=== PATIENT | male | born 1965 | race Caucasian/White ===

== ENCOUNTER 2019-11-06 15:45 | Outpatient (CLI) | payer OTHER, SELFPAY ==
[2019-11-06 16:19] LABS: Creatinine Urine 44.3 mg/dL; Total Protein Urine Random 170 mg/dL
[2019-11-06 16:23] LABS: Albumin Level 4.1 g/dL (3.5-5.1); Blood Urea Nitrogen 78 mg/dL (9-20); Calcium 7.6 mg/dL (8.4-10.2); Carbon Dioxide 13 mmol/L (22-30); Chloride 110 mmol/L (98-107); Estimated Glomerular Filt Rate 7; Glucose 89 mg/dL (75-110); Potassium 4.3 mmol/L (3.4-5.0); Sodium 137 mmol/L (137-145)
== END 2019-11-06 15:46 | disposition home or self-care (01) ==
PROVIDERS: PCP Internal Medicine; Visit Provider Internal Medicine Nephrology
DX: N18.4 Chronic kidney disease, stage 4 (severe) (principal)
CPT/HCPCS: 36415; 80069; 82570; 84156

== ENCOUNTER 2019-11-10 08:03 | Outpatient (CLI) | payer OTHER, SELFPAY ==
[2019-11-10 08:29] LABS: Blood Urea Nitrogen 73 mg/dL (9-20); Calcium 7.5 mg/dL (8.4-10.2); Carbon Dioxide 14 mmol/L (22-30); Chloride 112 mmol/L (98-107); Cholesterol 123 mg/dL (0-200); Estimated Glomerular Filt Rate 8; Glucose 101 mg/dL (75-110); HDL Direct 44 mg/dL; Potassium 4.3 mmol/L (3.4-5.0); Sodium 138 mmol/L (137-145); Triglycerides 78 mg/dL (<150)
[2019-11-10 08:40] LABS: LDL Cholesterol Direct 58 mg/dL
[2019-11-10 08:58] LABS: Prostate Specific Antigen 0.7 ng/mL (< OR = 4.0)
[2019-11-10 10:59] LABS: Vitamin D 25 Hydroxy 40.2 ng/mL
== END 2019-11-10 08:04 | disposition home or self-care (01) ==
PROVIDERS: PCP Internal Medicine; Visit Provider Internal Medicine
DX: E55.9 Vitamin D deficiency, unspecified (principal); Z12.5 Encounter for screening for malignant neoplasm of prostate; Z13.220 Encounter for screening for lipoid disorders; I10 Essential (primary) hypertension
CPT/HCPCS: 36415; 80048; 80061; 82306; 84153; G0103

== ENCOUNTER 2020-03-04 10:02 | Outpatient (CLI) | payer OTHER, SELFPAY ==
[2020-03-04 10:35] LABS: Creatinine Urine 65.5 mg/dL; Total Protein Urine Random 160 mg/dL
[2020-03-04 10:50] LABS: Anion Gap 20 mmol/L (8-16); Calcium 6.3 mg/dL (8.4-10.2); Carbon Dioxide 13 mmol/L (22-30); Chloride 107 mmol/L (98-107); Estimated Glomerular Filt Rate 4; Glucose 111 mg/dL (75-110); Potassium 4.5 mmol/L (3.4-5.0); Sodium 140 mmol/L (137-145)
[2020-03-04 11:25] LABS: Vitamin D 25 Hydroxy 41.9 ng/mL
[2020-03-04 11:53] LABS: Blood Urea Nitrogen 143 mg/dL (9-20)
== END 2020-03-04 10:03 | disposition home or self-care (01) ==
PROVIDERS: PCP Internal Medicine; Visit Provider Internal Medicine Nephrology
DX: I12.0 Hypertensive chronic kidney disease with stage 5 chronic kidney disease or end stage renal disease (principal); N18.5 Chronic kidney disease, stage 5
CPT/HCPCS: 36415; 80069; 82306; 82570; 84156

== ENCOUNTER 2020-03-11 21:46 | Inpatient (IN) | payer OTHER, SELFPAY ==
--- NOTE | ~2020-03-11 | XR_ITS ---
XR chest port-a-cath/central DATE: 03/12/2020 12:41 INDICATION: Tunneled dialysis catheter TECHNIQUE: Portable supine AP chest on 03/12/2020 at 1235 hours COMPARISON: 09/26/2017 two-view chest FINDINGS: Dual lumen right internal jugular dialysis catheter tip is situated near the superior cavoa trial junction. No pneumothorax. Heart size appears within normal limits. No hilar or mediastinal enlargement. There is aortic arch ca lcification. No pulmonary infiltrate or consolidation or left pleural effusion. There is minimal blunting of left costophrenic angle which appears chronic, also noted on 09/26/2017 examination. IMPRESSION: Right internal jugular central venous catheter tip at superior cavoatrial junction; no pn eumothorax No active cardiopulmonary disease Reviewed, dictated and finalized at [facility]. Reviewed, dictated and finalized at location A. IMPRESSION: Right internal jugular central venous catheter tip at superior cavo atrial junction; no pneumothorax No active cardiopulmonary disease
--- NOTE | ~2020-03-11 | XR_ITS ---
EXAMINATION: XR fl guide central line place DATE: 03/12/2020 12:42 INDICATION: Tunneled dialysis catheter placement TECHNIQUE: 2 fluoroscopic spot images of the chest were obtained during procedure performed by Dr. Felix. Radiologist was not present for the imaging or procedure. The amount of fluoroscopy time used dur ing this procedure was 0.8 minutes. COMPARISON: 09/26/2017 FINDINGS/IMPRESSION: Placement of a tunneled large-bore dual-lumen right internal jugular central venous catheter with dis rodolfo tip at the level of the superior cavoatrial junction. See procedure note for further detail. Reviewed, dictated and finalized at location A.
--- NOTE | ~2020-03-11 | XR_ITS ---
XR abdomen/kub 1V DATE: 03/12/2020 00:31 INDICATION: Flank pain TECHNIQUE: Portable supine AP view COMPARISON: 01/04/[address] abdomen pelvis FINDINGS: Calcifications overlie both renal silhouettes consistent with bilateral nephrolithiasis, wh ich was also reported on 01/04/[address] abdomen pelvis examination. No apparent ureteral ana cified calculus is noted. Iliac arterial calcifications are noted. The psoas shadows are intact. No visceromegaly is evident. The bowel gas pattern is unremarkable, wit h no evidence of obstruction. Degenerative changes of the lumbar spine. IMPRESSION: Bilateral nephrolithiasis Reviewed, dictated and finalized at [facility]. Reviewed, dictated and finalized at location A. IMPRESSION: Bilateral nephrolithiasis
--- NOTE | ~2020-03-11 | US_ITS ---
EXAMINATION: US renal BI EXAM DATE: 03/12/2020 10:52 INDICATION: Bilateral nephrolithiasis. TECHNIQUE: Multiple grayscale and Doppler images of the kidneys were obtained (by a technologist who performed the scan) and subsequently reviewed. Correlation is made to renal artery exam 2016. FINDINGS: Mild bilateral renal cortical thinning, atrophy. Right kidney: There is normal contour and echogenicity. It measures 11.4 x 6.2 x 5.4 centimeters. Monk spect scattered calcifications, nephrolithiasis. There is no hydronephrosis. Left kidney: There is normal contour and echogenicity. It measures 11.6 x 6.2 x 5.3 centimeters. Flori pect scattered calcifications, nephrolithiasis. There is no hydronephrosis. Bladder unremarkable. IMPRESSION: 1. Mild bilateral renal cortical thinning. 2. Bilateral nephrolithiasis. Reviewed, dictated and finalized at location B.
[2020-03-11 21:54] VITALS: PULSE 91
[2020-03-11 22:00] VITALS: BP 176/100; PULSE 94; RESP 22; TEMP 36.3; O2SAT 100; BMI 21.9
--- NOTE | 2020-03-11 22:00 | ECG_ITS ---
Measurements Intervals [place] Rate: 86 P: 59 ID: [id number] QRS: 29 QRSD: 102 T: 61 QT: 378 QTc: 454 Interpretive Statements SINUS RHYTHM BORDERLINE ST ABNORMALITY- ANTEROLATERAL LEADS BASELINE ARTIFACT- II, III, AVR, AVL, AVF, V6 BORDERLINE ECG Electronically Signed On 03-12-2020 14:56:54 CDT by Tong Urban D.O.
[2020-03-11 22:15] VITALS: BMI 21.9
--- NOTE | 2020-03-11 22:49 | ADMGEN ---
This patient, Audi Rosenthal, was admitted to IMU Room 200-01 @ 2200 by EMT transfer from [facility]. Patient/family oriented to hospital policies and general routines including ID bracelet, bed and alarms, visiting hours, pain management, procedures, bathroom and other care routines, personal items, smoking policy, room service/diet, and visiting hours. Valuables list has been completed. Information on how to activate the Rapid Response Team has been discussed. Patient/Family are encouraged to report perceived risks to care and to ask questions if they do not understand what they are told or what they should do.
--- NOTE | 2020-03-11 23:08 | PC.NURSE ---
Audi Rosenthal was admitted to IMU room 200 @2200 transported by EMT from [facility]. Vitals taken by EMT are
--- NOTE | 2020-03-11 23:10 | PC.NURSE ---
Audi Rosenthal was admitted to IMU room 200 @2200, transported by EMT from [facility]. EMT transport vitals are as followed: heart rate of 86, blood pressure 180/100, respiratory rate of 16, and O2 sats @ 100% on room air.
[2020-03-11] MEDS: MORPHINE SULFATE (*CRX) 2 MG/ML INJ IV PUSH (23:17)
[2020-03-11 23:48] VITALS: BP 167/89; PULSE 97; RESP 18; TEMP 36.6; O2SAT 100
[2020-03-11 23:56] LABS: Troponin I 0.066 ng/mL (0.000-0.034)
[2020-03-12] VITALS (22 sets, daily range): BP systolic 122–157; BP diastolic 76–91; PULSE 71–95; RESP 12–20; TEMP 36.1–37.9; O2SAT 97–100; BMI 21.9
[2020-03-12] MEDS: carvediloL 12.5 MG TABLET PO ×3 (00:29→20:29)
[2020-03-12] MEDS: hydrALAZINE HCL 50 MG TABLET PO ×4 (00:29→17:50)
[2020-03-12 02:28] LABS: Troponin I 0.086 ng/mL (0.000-0.034)
[2020-03-12 04:33] LABS: Add Urine Microscopic? YES; Amorphous Sediment Urine Few; Appearance Urine Cloudy (Clear); Bacteria Urine Trace /hpf; Bilirubin Urine Negative (Negative); Blood Urine 1+ (Negative); Color Urine Straw (Yellow); Glucose Urine UA 1+ mg/dL (Negative); Ketones Urine Negative (Negative); Leukocyte Esterase Ur 3+ LEU/UL (Negative); Nitrate Urine Negative (Negative); Protein Urine 2+ mg/dL (Negative); Specific Grav Ur 1.008 (1.001-1.035); Urobilinogen Urine Negative mg/dL (<2.0); WBC Urine >75 /hpf
--- NOTE | 2020-03-12 04:41 | PM.IMHP ---
H&P: HPI History of Present Illness Date/Time: 03/12/20 05:20 Chief complaint: Chest pain, shortness of breath Narrative: Audi Rosenthal is a 55 year old male with a past medical history of chronic kidney disease due to chronically uncontrolled hypertension who presented to the ER at [facility] due to shortness of breath and chest pain. The patient reports that he has been progressively more short of breath over the last 4 weeks or so. And then over the last 2 weeks of the patient has begun having chest pain. He reports that chest pain feels as if he has acid washing up his throat and feel similar to his usual GERD symptoms. He reports that his chest pain is frequently accompanied by vomiting. He denies any hematemesis or coffee-ground emesis. Dr. Moses on 03/04/2020 at which time his creatinine had jumped from 7 up to 13. He had an appointment at the filling hauler office on the to discuss starting hemodialysis. The patient reports that over the last month or so he has had no energy whatsoever. He denies any confusion,. Dried is or changes in urinary urgency or frequency. He has not been having any dysuria or hematuria. Nursing staff reported the patient was complaining of flank pain. But instead the patient states that his chest pain sometimes will also be at the bases his posterior back. He denies any CVA tenderness to palpation. He has been having some dizziness with position changes. He also reports generalized myalgias. Review of Systems Review of Systems: Narrative: 12 systems were reviewed with pertinent positives and negatives per HPI. Except as documented in the HPI, all other systems were reviewed and are negative. [facility] Past Medical History Medical History (Updated 03/12/20 @ 04:48 by Gracy Barillas DO) Anemia in chronic kidney disease BPH (benign prostatic hyperplasia) Essential hypertension Gastroesophageal reflux disease Hyperparathyroidism due to renal insufficiency Nephrolithiasis Osteoarthritis of right knee Shift work sleep disorder Vitamin D deficiency Surgical History Surgical History (Updated 03/12/20 @ 07:43 by Gracy Barillas DO) History of melanoma excision S/P cystoscopy with ureteral stent placement Family History Family History Sibling Diabetes mellitus Mother Family history of arthritis Father Family history unknown Social History Social History (Updated 03/12/20 @ 07:56 by Gracy Barillas DO) Social History: He lives in [place] with his of over 25 years. They do not have any children. He is employed at a [email or web address]. Primary care physician: Dr. Roney George Code status: Full code Surrogate decision maker: Ne () Smoking status: Never smoker Alcohol intake: current Alcohol use details: He drinks only in small amounts in moderation. He has not had any alcohol in quite some time. Substance use: never Substance use type: does not use Gender identity (if verbalized by the patient): Male Spiritual care concerns: No Meds Home Medications and Allergies Home Medications Medication Instructions Recorded Confirmed Type nifedipine 60 mg tablet,extended 60 mg PO DAILY #90 tablet 07/12/19 03/11/20 Rx release cholecalciferol (vitamin D3) 50 2,000 unit PO BID #180 tablet 07/20/19 03/11/20 Rx mcg (2,000 unit) tablet carvedilol 12.5 mg tablet 12.5 mg PO Q12H #60 tablet 11/15/19 03/11/20 Rx ferrous sulfate 325 mg (65 mg 325 mg PO BID #60 tablet 11/15/19 03/11/20 Rx iron) tablet hydralazine 50 mg tablet 50 mg PO TID #90 tablet 11/15/19 03/11/20 Rx sodium bicarbonate 650 mg tablet 650 mg PO DAILY #90 tablet 11/15/19 03/11/20 Rx Allergies Allergy/AdvReac Type Severity Reaction Status Date / Time No Known Drug Allergies Allergy Unknown none Unverified 11/15/19 12:48 Bumble Bee Allergy Unknown hives Uncoded 11/15/19 12:48 Vital Signs Vital Si
[2020-03-12 05:18] LABS: Basophils Absolute Auto 0.1 K/mm3 (0.0-0.1); Basophils Percent Auto 0.9 % (0.2-1.2); Eosinophils Absolute Auto 0.2 K/mm3 (0-0.3); Eosinophils Percent Auto 2.2 % (0-4.4); Hematocrit 21.4 % (42.0-52.0); Hemoglobin 7.2 g/dL (14.0-18.0); Immature Granulocyte Absolute 0.03 K/mm3 (0.00-0.031); Immature Granulocyte Percent A 0.4 % (0-0.5); Lymphocytes Absolute Auto 1.23 K/mm3 (0.9-3.2); Lymphocytes Percent Auto 17.8 % (18.3-44.2); Mean Corpuscular HGB Conc 33.6 g/dl (32-36); Mean Corpuscular Hemoglobin 28.3 pg (26-34); Mean Corpuscular Volume 84.3 fl (80-100); Mean Platelet Volume 10.2 fl (7.4-10.4); Monocytes Absolute Auto 0.6 K/mm3 (0.1-0.6); Monocytes Percent Auto 8.3 % (2.6-8.5); Neutrophils Absolute Auto 4.9 K/mm3 (1.3-6.7); Neutrophils Percent Auto 70.4 % (45.5-73.1); Platelet Count Result 216 k/mm3 (150-375); Red Blood Count 2.54 M/mm3 (4.6-6.20); Red Cell Distribution Width 14.6 % (11.5-14.5); White Blood Count 6.9 K/mm3 (4.5-10.0)
[2020-03-12 05:40] LABS: Anion Gap 21 mmol/L (8-16); Calcium 6.2 mg/dL (8.4-10.2); Carbon Dioxide 12 mmol/L (22-30); Chloride 107 mmol/L (98-107); Estimated CRCL calculation 6 ml/min; Estimated Glomerular Filt Rate 4; Glucose 94 mg/dL (75-110); Phosphorus 11.3 mg/dL (2.5-4.5); Potassium 3.9 mmol/L (3.4-5.0); Sodium 140 mmol/L (137-145)
[2020-03-12 05:52] LABS: Blood Urea Nitrogen 138 mg/dL (9-20)
--- NOTE | 2020-03-12 08:10 | PM.CNNEP ---
Assessment and Plan Assessment and plan (1) Chronic kidney disease, stage 5: Code(s): N18.5 - Chronic kidney disease, stage 5 Status: Acute Assessment and Plan: the patient has chronic kidney disease. This is likely due to hypertension and recurrent stone disease. Vascular disease may be an issue as well. His baseline creatinine seems to be around 4-7. It is unclear exactly what part of this is acute and what part of this is chronic. (2) Acute kidney failure, unspecified: Code(s): N17.9 - Acute kidney failure, unspecified Status: Acute Assessment and Plan: The patient has a much worse creatinine now. It is risen dramatically in the last 4 months. Possibly this is just progression of kidney disease and he is uremic so just needs dialysis. Possibly this is an acute process. He does have pyuria so could have a UTI. He has been placed on antibiotics and he got urine cultures done which are pending. He does not look toxic however. At makes this a little bit less likely as a cause of his acute kidney injury. The patient does have a history of stone disease. possibly he passed 1 and caused an obstruction. He might be dehydrated because He has been having nausea vomiting and of course his usual diarrhea. will check urine electrolytes and eosinophils, chest x-ray, renal ultrasound, and an echocardiogram. (3) Bacteriuria with pyuria: Code(s): R82.71 - Bacteriuria; R82.81 - Pyuria Status: Acute Assessment and Plan: Patient is on antibiotics and cultures are pending. (4) BPH w/o urinary obs/LUTS: Code(s): N40.0 - Benign prostatic hyperplasia without lower urinary tract symptoms Status: Acute Assessment and Plan: We will see what his bladder looks like on ultrasound (5) Hypertension with heart disease: Code(s): I11.9 - Hypertensive heart disease without heart failure Status: Acute Assessment and Plan: his blood pressure is generous. We will leave it this way because of the acute kidney injury (6) Vitamin D deficiency: Code(s): E55.9 - Vitamin D deficiency, unspecified Status: Acute Assessment and Plan: we can check a vitamin-D (7) Chest pain: Code(s): R07.9 - Chest pain, unspecified Status: Acute Assessment and Plan: this could be indigestion from his uremia or possibly pericarditis. Will check an echocardiogram. Check a stool guaiac since he is so anemic (8) Erythropoietin deficiency anemia: Code(s): D63.1 - Anemia in chronic kidney disease Status: Acute Assessment and Plan: will start some EPO . History of Present Illness Reason for Consult Consult date: 03/12/20 Chief Complaint Chief complaint: Chest pain, shortness of breath History of Present Illness Narrative: Audi is a very pleasant 55-year-old gentleman who has chronic kidney disease under the care of Dr. Moses, anemia, hypertension, GERD, nephrolithiasis, vitamin-D deficiency. He sees Dr. Moses in the office routinely. Apparently he was sent for [facility] because his renal function has been deteriorating but because of COVID this was done virtually. I am not exactly sure how much of a class He got but he does not know much about what type of dialysis he would want to do and has not made any strides toward permanent access. He says that his GFR was 12 last T . However in November his creatinine was as high as 7 which would give a GFR of only 8. The patient was okay until about 2 weeks ago when he started having chest pain. This is anterior chest pain or quite described as dull. It radiates to the back. It does not hurt with inspiration or exertion. He says he gets a little worse lying back flat in bed but not much. It is intermittent. He did not call anybody about it over the last couple of weeks but because he got tired of it he decided to come in the emergency room yesterday.
--- NOTE | 2020-03-12 08:26 | ECHO_ITS ---
Patient Info Name: Audi Rosenthal Age: 55 years : 1965 Gender: Male Ht: 72 in Wt: 161 lbs BSA: 1.92 m2 HR: 75 bpm BP: 133 / 79 mmHg Heart Rhythm: Sinus Rhythm Technical Quality: Good Exam Date: 03/12/2020 1:24 PM Exam Location: [facility] Pulmonary Patient Status: Inpatient Admit Date: 03/12/2020 Staff Ordering Physician: Aureliano Alegria MD Switch Inspector: Mark López RDCS Attending Provider: Gracy Barillas DO Referring Physician: Airam ISRAEL; Exam Type: CA echo doppler color flow Study Info Indications R07.9 - Chest pain, unspecified Complete two-dimensional, color flow and Doppler transthoracic echocardiogram is performed. History/Risk Factors Chest pain; ESRD, HTN, SOB,. Summary 1. Complete two-dimensional, color flow and Doppler transthoracic echocardiogram is performed. 2. Left ventricular chamber dimension is mildly enlarged. 3. Mid to distal anteroseptal wall is hypokinetic. [place] is hypokinetic. 4. Left ventricular systolic function is mildly reduced, estimated at 45-50%. 5. There is mildly increased left ventricular wall thickness. 6. The left ventricular diastolic function is grade I diastolic dysfunction. 7. E/e' 11 is mildly elevated. 8. Left atrial chamber dimension is mildly enlarged. 9. Right atrial chamber dimension is mildly enlarged. 10. There is trace tricuspid valve regurgitation. 11. No pulmonary hypertension, estimated pulmonary arterial systolic pressure is 28 mmHg. Left Ventricle E/e' 11 is mildly elevated. Mid to distal anteroseptal wall is hypokinetic. [place] is hypokinetic. Left ventricular chamber dimension is mildly enlarged. Left ventricular systolic function is mildly reduced, estimated at 45-50%. There is mildly increased left ventricular wall thickness. The left ventricular diastolic function is grade I diastolic dysfunction. Right Ventricle Right ventricular chamber dimension is normal. Right ventricular systolic function is normal. Left Atria Left atrial chamber dimension is mildly enlarged. Right Atria Right atrial chamber dimension is mildly enlarged. Aortic Valve The aortic valve is trileaflet. There is no aortic valve stenosis. There is no aortic valve regurgitation. Pulmonic Valve There is no pulmonic regurgitation. Mitral Valve There is no mitral valve stenosis. There is no mitral valve regurgitation. Tricuspid Valve There is trace tricuspid valve regurgitation. No pulmonary hypertension, estimated pulmonary arterial systolic pressure is 28 mmHg. Pericardium/Pleural There is no pericardial effusion. Inferior Vena Cava Normal inferior vena cava with >50% collapse upon inspiration consistent with normal right atrial pressure, 5 mmHg. Aorta The aortic root size at the sinus of Valsalva is normal. Left Ventricular Outflow Tract Name Value Normal LVOT 2D LVOT Diameter 2.0 cm LVOT Doppler LVOT Peak Gradient 6 mmHg LVOT Mean Gradient 4 mmHg LVOT VTI 26 cm LVOT VTI/AV VTI Ratio 0.7
[2020-03-12 08:59] LABS: Creatine Kinase 177 U/L (55-170)
[2020-03-12] MEDS: SODIUM BICARBONATE TAB 650 MG TABLET PO (09:03)
[2020-03-12] MEDS: NIFEdipine 30 MG TAB.ER.24 60 MG PO (09:03)
[2020-03-12] MEDS: CHOLECALCIFEROL 1,000 UNITS TABLET 2000 UNITS PO ×2 (09:03→17:49)
[2020-03-12 09:12] LABS: Transferrin 175 mg/dL (206-381)
[2020-03-12 10:08] LABS: Iron 80 ug/dL (49-181)
[2020-03-12 10:12] LABS: Folic Acid 7.5 ng/mL (2.76->20)
[2020-03-12 10:17] LABS: Percent Iron Saturation 30 % (20-50)
--- NOTE | 2020-03-12 10:18 | WPDANESEPPF ---
Anes - Initial Pre Proc Eval Procedure: Operation Date: 03/12/20 11:30 Proposed Procedures p Insertion Tunnel Dialysis Catheter - Eulogio Olivo MD Date/Time: 03/12/20 10:18 Surgeon: Gracy Barillas DO Pre Op Diagnosis: Chest pain, shortness of breath Patient Data Age: 55 Gender: M Height: 1.83 m Weight: 73.4 kg Last Vital Signs Temp 37.2 C 03/12/20 07:59 Pulse 77 03/12/20 09:03 Resp 20 03/12/20 07:59 BP 157/87 H 03/12/20 07:59 Pulse Ox 100 03/12/20 07:59 Allergies Allergy/AdvReac Type Severity Reaction Status Date / Time No Known Drug Allergies Allergy Unknown none Verified 03/12/20 09:02 Bumble Bee Allergy Unknown hives Uncoded 11/15/19 12:48 Home Medications Medication Instructions Recorded Confirmed Type nifedipine 60 mg tablet,extended 60 mg PO DAILY #90 tablet 07/12/19 03/11/20 Rx release cholecalciferol (vitamin D3) 50 2,000 unit PO BID #180 tablet 07/20/19 03/11/20 Rx mcg (2,000 unit) tablet carvedilol 12.5 mg tablet 12.5 mg PO Q12H #60 tablet 11/15/19 03/11/20 Rx ferrous sulfate 325 mg (65 mg 325 mg PO BID #60 tablet 11/15/19 03/11/20 Rx iron) tablet hydralazine 50 mg tablet 50 mg PO TID #90 tablet 11/15/19 03/11/20 Rx sodium bicarbonate 650 mg tablet 650 mg PO DAILY #90 tablet 11/15/19 03/11/20 Rx Laboratory Tests 03/11/20 03/12/20 03/12/20 23:21 01:54 04:14 WBC RBC Hgb Hct MCV MCH MCHC RDW Plt Count MPV Immature Gran % (Auto) Neut % (Auto) Lymph % (Auto) Henry % (Auto) Eos % (Auto) Baso % (Auto) Lymph # (Auto) Henry # (Auto) Eos # (Auto) Baso # (Auto) Abs Immat Gran (auto) Absolute Neuts (auto) Absolute Nucleated RBC Nucleated RBC % Sodium Potassium Chloride Carbon Dioxide Anion Gap BUN Creatinine Estim Creat Clear Calc Estimated GFR Glucose Calcium Phosphorus Iron TIBC % Saturation Transferrin Ferritin Total Creatine Kinase Troponin I 0.066 ng/mL H* ng/mL 0.086 ng/mL H* D ng/mL (0.000-0.034) (0.000-0.034) Total Protein Albumin Fczvd-4-Ccooaibbf Nrpdk-2-Hznpgbdxu Huaf-4-Mcltibrx Avtv-0-Qssnlryq Gamma Globulins Abnorm Protein Band 1 Abnorm Protein Band 3 PEP Interpretation Vitamin B12 Folate Urine Color Straw (Yellow) Urine Appearance Cloudy H (Clear) Urine pH 6.0 (5.0-9.0) Ur Specific [place] 1.008 (1.001-1.035) Urine Protein 2+ mg/dL H mg/dL (Negative) Urine Glucose (UA) 1+ mg/dL H mg/dL (Negative) Urine Ketones Negative mg/dL mg/dL (Negative) Ur Blood (Man) 1+ H (Negative) Urine Nitrate Negative (Negative) Urine Bilirubin Negative (Negative) Urine Urobilinogen Negative mg/dL mg/dL (<2.0) Leukocyte Esterase Rfl 3+ LUBNA/UL H LUBNA/UL (Negative) Urine RBC 6-10 /hpf H /hpf (0-2) Urine WBC >75 /hpf H /hpf Amorphous Sediment Few H (None) Urine Bacteria Trace /hpf /hpf 03/12/20 03/12/20 03/12/20 04:20 04:22 04:22 WBC 6.9 K/mm3 K/mm3 (4.5-10.0) RBC 2.54 M/mm3 L M/mm3 (4.6-6.20) Hgb 7.2 g/dL L g/dL (14.0-18.0) Hct 21.4 % L % (42.0-52.0) MCV 84.3 fl fl (80-100) MCH 28.3 pg pg (26-34) MCHC 33.6 g/dl g/dl (32-36)
[2020-03-12] MEDS: SODIUM CHLORIDE 0.9% IV 500 ML 30 ML IV CONT (10:31)
--- NOTE | 2020-03-12 11:09 | P.HPUP_ITS ---
History and Physical Update Update Date/Time: 03/12/20 11:09 Plan to proceed with placement of a tunneled central venous catheter for dialysis under anesthesia. Fluoroscopy will be used to assist in the placement. History and Physical has been reviewed, including an updated exam of the p atient. There are NO changes in the patient's condition. Risks, benefits, and alternatives have been discussed and questions answered. Patient agrees to proceed with procedure.
[2020-03-12] MEDS: ceFAZolin 2 GM/D5W 50 ML 2 GM/50 ML BAG IVPB (11:26)
--- NOTE | 2020-03-12 11:30 | P.OP_ITS ---
Procedure Note - Detailed Date of procedure: 03/12/20 Pre-op diagnosis: End-stage renal disease, inadequate venous access End stage renal disease, inadequate venous access for dialysis Post-op diagnosis: same Procedure performed: Placement right internal jugular tunneled Dura Flow central venous catheter under fluoroscopy Description of procedure: The patient was taken to surgery and IV sedation was administered. He was in a supine position and the right neck was prepped and draped as was the right upper chest. The right internal jugular vein was cannulated and a guidewire was passed into the superior vena cava. The position of the guidewire was checked with fluoroscopy. I then used fluoroscopy to outline the general course of the tunneled dialysis catheter. Counter incisions on the right chest and right neck were marked on the skin. Local anesthetic was infiltrated into each of the counter incisions. I then made incisions at each as well as at the exit site of the guidewire. The Dura Flow catheter was then tunneled retrograde up to the exit site of the guidewire. Serial dilators were then passed over the guidewire into the superior vena cava. The introducer and sheath were then passed over the guidewire into the superior vena cava. I checked the position of the sheath with fluoroscopy. It appeared satisfactory. I then removed the introducer and guidewire. The catheter was then passed through the sheath and down into the superior vena cava. The sheath was removed. I manipulated the curve of the catheter so that there was no kinks as it turned to go into the internal jugular vein. The catheter was then checked. It aspirated blood easily and flushed nicely with heparin. I looked at it under fluoroscopy and there were no kinks in the catheter. The tip appeared to be in the distal SVC right atrial junction as planned. The counter incisions were closed with subcuticular interrupted 4 O Vicryl suture. The catheter was sutured to the skin with 3 0 nylon. A final flush was given to each of the ports in the catheter. Exofin surgical adhesive was used to dress the counter incisions. A gauze bandage was placed over the exit site. The patient was then awakened and taken to recovery in good condition. Anesthesia: MAC and local (0.5% Marcaine with epinephrine) Surgeon: Eulogio Olivo MD Cyber Intelligence Analyst: Stas Johnson Estimated blood loss (mL): 5 Drains: No Packing: No Pathology: none sent Complications: No immediate complications Condition: stable Disposition: PACU Findings: Tunneled Dura Flow catheter in the expected position. Tip ends in the distal SVC right atrial junction. No apparent kinks in the course of the catheter.
[2020-03-12] MEDS: HEPARIN SODIUM 5,000 UNITS/ML VIAL 5000 UNITS SUB-Q (11:45)
[2020-03-12] MEDS: LIDO 1%/EPINEPHRINE 1:100,000 20 ML VIAL INFILTRATE (11:45)
--- NOTE | 2020-03-12 11:47 | SUR.PREOP ---
1100; DR ANDERSON NOTIFIED OF PT TEMP OF 100.3.
[2020-03-12] MEDS: HEPARIN SODIUM 5,000 UNITS/ML VIAL 10000 UNITS IV PUSH (11:55)
[2020-03-12 11:59] LABS: Creatinine Urine 38.7 mg/dL; Total Protein Urine Random 83 mg/dL
[2020-03-12 12:00] LABS: Sodium Urine Random 76 meq/L
[2020-03-12] MEDS: HYDROcodone/acetaminophen (*CRX) 5-325 MG TABLET 1 TAB PO (14:03)
[2020-03-12] MEDS: MORPHINE SULFATE (*CRX) 2 MG/ML INJ IV PUSH (16:13)
--- NOTE | 2020-03-12 16:44 | PM.IMPN ---
Progress Note: A&P Assessment and Plan (1) ESRD (end stage renal disease): Code(s): N18.6 - End stage renal disease Status: Acute Assessment and Plan: Much of the patient's symptoms are likely related to his end-stage renal disease. Dr. Moses of from nephrology has been consulted. The patient has been made NPO in case he needs a temporary dialysis catheter placed today 03/12/20 16:44 patient is a 55-year-old male with history of chronically in disease with significant elevated BUN and creatinine patient had been seen by channel marketing program manager and have discuss about the dialysis, patient patient states the last 4 weeks he is having chest pain on the now was getting progressively he presented emergency department with a chest was found to have elevated BUN of 134 and creatinine of close to 13, patient was seen by Nephrology and have come to an agreement the patient will need emergent dialysis and had temporary catheter placed today, I spoke with Nephrology suspect most likely secondary to his uncontrolled hypertension and patient is scheduled to have a dialysis tomorrow. patient tropes are elevated mildly inflamed most likely secondary to demand ischemia due to significant acute on chronic kidney disease unlikely acute coronary syndrome, patient will have dialysis today and further recommendation to follow (2) Elevated troponin: Code(s): R77.8 - Other specified abnormalities of plasma proteins Status: Acute Assessment and Plan: Likely secondary to patient's renal disease and and uncontrolled hypertension. Blood pressures on presentation to our facility or elevated into the 160s and 170s but this morning have improved down to 139/76. Will resume the patient's home Coreg, hydralazine, and nifedipine. (3) Volume overload: Code(s): E87.70 - Fluid overload, unspecified Status: Acute Assessment and Plan: The patient does not have evidence of CHF. He may have some component of volume overload related to his kidney disease. (4) Bacteriuria with pyuria: Code(s): R82.71 - Bacteriuria; R82.81 - Pyuria Status: Acute Assessment and Plan: The patient does not have any CVA tenderness palpation/percussion but his urine is suspicious for possible UTI. Will place patient on empiric antibiotic therapy with Rocephin. Subjective Date/time seen: 03/12/20 16:44 patient is a 55-year-old male with history of chronically in disease with significant elevated BUN and creatinine patient had been seen by channel marketing program manager and have discuss about the dialysis, patient patient states the last 4 weeks he is having chest pain on the now was getting progressively he presented emergency department with a chest was found to have elevated BUN of 134 and creatinine of close to 13, patient was seen by Nephrology and have come to an agreement the patient will need emergent dialysis and had temporary catheter placed today, I spoke with Nephrology suspect most likely secondary to his uncontrolled hypertension and patient is scheduled to have a dialysis tomorrow. patient tropes are elevated mildly inflamed most likely secondary to demand ischemia due to significant acute on chronic kidney disease unlikely acute coronary syndrome, patient will have dialysis today and further recommendation to follow Review of Systems Review of Systems: All systems reviewed & are unremarkable except as noted in HPI and below Exam Narrative: Exam Narrative: patient appears chronically ill older than his age Const: General: no acute distress and uncomfortable HENMT: General nose exam: Normal nares present Eyes: Sclera: sclerae normal Neck: Neck: supple Resp: Other: bilateral poor air entry with rhonchi Cardio: Rate: regular rate Rhythm: regular rhythm GI: Auscultation: normal bowel sounds Skin: General skin exam: normal color Neuro: Speech: normal speech Sensory Exam: normal sensation Extrem: General: rosy
[2020-03-13] VITALS (28 sets, daily range): BP systolic 98–166; BP diastolic 54–94; PULSE 50–92; RESP 12–22; TEMP 36.3–37; O2SAT 98–100
[2020-03-13] MEDS: HYDROcodone/acetaminophen (*CRX) 5-325 MG TABLET 1 TAB PO (03:00)
[2020-03-13] MEDS: MORPHINE SULFATE (*CRX) 2 MG/ML INJ IV PUSH (06:23)
[2020-03-13] MEDS: ONDANSETRON INJ 4 MG/2 ML VIAL IV PUSH (08:54)
[2020-03-13 09:43] LABS: Hematocrit 22.2 % (42.0-52.0); Hemoglobin 7.5 g/dL (14.0-18.0); Mean Corpuscular HGB Conc 33.8 g/dl (32-36); Mean Corpuscular Hemoglobin 28.6 pg (26-34); Mean Corpuscular Volume 84.7 fl (80-100); Mean Platelet Volume 10.2 fl (7.4-10.4); Platelet Count Result 220 k/mm3 (150-375); Red Blood Count 2.62 M/mm3 (4.6-6.20); Red Cell Distribution Width 14.6 % (11.5-14.5); White Blood Count 8.6 K/mm3 (4.5-10.0)
--- NOTE | 2020-03-13 09:55 | WPDANESPN ---
Anes - Prog Note Post-Op Date/Time: 03/13/20 09:55 Cardiovascular status: normal Respiratory status: normal Airway patency: baseline Mental status: baseline Post-Op hydration status: normal Vital Signs: Last Vital Signs Temp 36.4 C 03/13/20 08:00 Pulse 69 03/13/20 08:50 Resp 12 03/13/20 08:00 BP 121/63 03/13/20 08:50 Pulse Ox 99 03/13/20 08:00 Pain Score (VAS): 0 I/O: Intake & Output 03/12/20 03/13/20 03/13/20 23:59 07:59 15:59 Intake Total 720 50 360 Output Total 800 800 700 Balance -80 -750 -340 03/12/20 03/12/20 03/12/20 08:20 08:20 09:44 WBC RBC Hgb Hct MCV MCH MCHC RDW Plt Count MPV Sodium Potassium Chloride Carbon Dioxide Anion Gap BUN Creatinine Estim Creat Clear Calc Estimated GFR Glucose Calcium Phosphorus Magnesium Iron 80 TIBC 263 L % Saturation 30 Ferritin 159.00 Albumin Vitamin B12 649.0 Folate 7.5 Urine Eosinophils Ur Random Creatinine U Random Total Protein Ur Random Sodium Urine Creatinine Protein/Creatinin Ratio Urine Albumin U [id number]-[id number] U Ougdn-7-Nhwyiiho U Beta Globulin U Gamma Globulin U Abnormal Prot Band 1 U Abnormal Prot Band 2 U Abnormal Prot Band 3 Urine PEP Interpret Blood Type A Positive Antibody Screen Negative 03/12/20 03/12/20 03/13/20 11:33 11:33 09:09 WBC Pending RBC Pending Hgb Pending Hct Pending MCV Pending MCH Pending MCHC Pending RDW Pending Plt Count Pending MPV Pending Sodium Potassium Chloride Carbon Dioxide Anion Gap BUN Creatinine Estim Creat Clear Calc Estimated GFR Glucose Calcium Phosphorus Magnesium Iron TIBC % Saturation Ferritin Albumin Vitamin B12 Folate Urine Eosinophils Pending Ur Random Creatinine Pending U Random Total Protein Pending 83 Ur Random Sodium 76 Urine Creatinine 38.7 Protein/Creatinin Ratio Pending Urine Albumin Pending U Bpxis-0-Slgfzmfi Pending U Zlsgx-5-Vzudezwv Pending U Beta Globulin Pending U Gamma Globulin Pending U Abnormal Prot Band 1 Pending U Abnormal Prot Band 2 Pending U Abnormal Prot Band 3 Pending Urine PEP Interpret Pending Blood Type Antibody Screen 03/13/20 09:09 WBC RBC Hgb Hct MCV MCH MCHC RDW Plt Count MPV Sodium Pending Potassium Pending Chloride Pending Carbon Dioxide Pending Anion Gap Pending BUN Pending Creatinine Pending Estim Creat Clear Calc Pending Estimated GFR Pending Glucose Pending Calcium Pending Phosphorus Pending Magnesium Pending Iron TIBC % Saturation Ferritin Albumin Pending Vitamin B12 Folate Urine Eosinophils Ur Random Creatinine U Random Total Protein Ur Random Sodium Urine Creatinine Protein/Creatinin Ratio Urine Albumin U Yhjca-[id number] U Ilphi-7-Pbxhyuwo U Beta Globulin U Gamma Globulin U Abnormal Prot Band 1 U Abnormal Prot Band 2 U Abnormal Prot Band 3 Urine PEP Interpret Blood Type Antibody Screen Microbiology 03/12/20 04:14 Urine Clean Catch Urine Culture - Final Coag neg Staph, not saprophyti Post-procedural complaints: none Patient Feedback: Patient satisfied with anesthetic care.
[2020-03-13 10:06] LABS: Albumin Level 3.7 g/dL (3.5-5.1); Anion Gap 21 mmol/L (8-16); Calcium 6.4 mg/dL (8.4-10.2); Carbon Dioxide 14 mmol/L (22-30); Chloride 104 mmol/L (98-107); Estimated CRCL calculation 6 ml/min; Estimated Glomerular Filt Rate 4; Glucose 163 mg/dL (75-110); Magnesium 1.7 mg/dL (1.6-2.3); Phosphorus 12.6 mg/dL (2.5-4.5); Potassium 3.9 mmol/L (3.4-5.0); Sodium 139 mmol/L (137-145)
[2020-03-13 10:10] LABS: Blood Urea Nitrogen 128 mg/dL (9-20)
[2020-03-13 11:15] LABS: Albumin Level 3.9 g/dL (3.5-5.1); Anion Gap 21 mmol/L (8-16); Calcium 6.7 mg/dL (8.4-10.2); Carbon Dioxide 15 mmol/L (22-30); Chloride 102 mmol/L (98-107); Estimated CRCL calculation 6 ml/min; Estimated Glomerular Filt Rate 4; Glucose 170 mg/dL (75-110); Phosphorus 12.3 mg/dL (2.5-4.5); Potassium 3.9 mmol/L (3.4-5.0); Sodium 138 mmol/L (137-145)
[2020-03-13 11:33] LABS: Blood Urea Nitrogen 129 mg/dL (9-20)
[2020-03-13] MEDS: NIFEdipine 30 MG TAB.ER.24 60 MG PO (12:02)
[2020-03-13] MEDS: carvediloL 12.5 MG TABLET PO ×2 (12:02→20:12)
[2020-03-13] MEDS: hydrALAZINE HCL 50 MG TABLET PO ×2 (12:02→17:52)
[2020-03-13] MEDS: SODIUM BICARBONATE TAB 650 MG TABLET PO (12:02)
[2020-03-13 12:05] LABS: Hepatitis B Surface Antigen Negative (Negative)
[2020-03-13 12:11] LABS: HAV RESULT Negative (Negative); Hepatitis B Core IgM Result Negative (Negative)
[2020-03-13 12:23] LABS: Hepatitis B Surface Anti Res Negative; Hepatitis C Virus Antibody Negative (Negative)
--- NOTE | 2020-03-13 14:00 | PC.NURSE ---
Patient to dialysis via bed.
--- NOTE | 2020-03-13 15:14 | PM.IMPN ---
Progress Note: A&P Assessment and Plan (1) ESRD (end stage renal disease): Code(s): N18.6 - End stage renal disease Status: Acute Assessment and Plan: Much of the patient's symptoms are likely related to his end-stage renal disease. Dr. Moses of from nephrology has been consulted. The patient has been made NPO in case he needs a temporary dialysis catheter placed today 03/13/20 patient is a 55-year-old male with history of chronically in disease with significant elevated BUN and creatinine patient had been seen by matrix bath operator and had discuss about the dialysis, patient states the last 4 weeks he is having chest pain on and off, now pain was getting progressively worse, he presented emergency department with a chest apin, was found to have elevated BUN of 134 and creatinine of close to 13, patient was seen by Nephrology and have come to an agreement the patient will need emergent dialysis and had temporary catheter placed on 03/12, I spoke with Nephrology suspect ESRD most likely secondary to his uncontrolled hypertension. Today patient is scheduled to have a dialysis, most likely patient will need 2 or 3 consectve dialysis, patient tropes are elevated mildly most likely secondary to ischemia due to significant acute on chronic kidney disease unlikely acute coronary syndrome, patient will have dialysis today and further recommendation to follow (2) Elevated troponin: Code(s): R77.8 - Other specified abnormalities of plasma proteins Status: Acute Assessment and Plan: Likely secondary to patient's renal disease and and uncontrolled hypertension. Blood pressures on presentation to our facility or elevated into the 160s and 170s but this morning have improved down to 139/76. Will resume the patient's home Coreg, hydralazine, and nifedipine. (3) Volume overload: Code(s): E87.70 - Fluid overload, unspecified Status: Acute Assessment and Plan: The patient does not have evidence of CHF. He may have some component of volume overload related to his kidney disease. (4) Bacteriuria with pyuria: Code(s): R82.71 - Bacteriuria; R82.81 - Pyuria Status: Acute Assessment and Plan: The patient does not have any CVA tenderness palpation/percussion but his urine is suspicious for possible UTI. Will place patient on empiric antibiotic therapy with Rocephin. Subjective Date/time seen: 03/13/20 15:14 patient with end-stage renal disease did not have dialysis yesterday, states does feel little better compared to when he arrived, not a short breath denies any chest pain palpitation fever or chills, his is present in the room. Review of Systems Review of Systems: All systems reviewed & are unremarkable except as noted in HPI and below Exam Narrative: Exam Narrative: patient appears chronically ill older than his age Const: General: no acute distress and uncomfortable HENMT: General nose exam: Normal nares present Eyes: Sclera: sclerae normal Neck: Neck: supple Resp: Other: bilateral poor air entry with rhonchi Cardio: Rate: regular rate Rhythm: regular rhythm GI: Auscultation: normal bowel sounds Skin: General skin exam: normal color Neuro: Speech: normal speech Sensory Exam: normal sensation Extrem: General: normal to inspection Psych: Affect: Anxious affect present Objective Data Vital Signs Vital Signs: Vital Signs - 24 hr 03/12/20 16:00 03/12/20 18:00 03/12/20 20:00 Temperature 97.2 F L 98.2 F Pulse Rate 72 72 94 Respiratory Rate 16 18 Blood Pressure 145/91 H 135/77 Pulse Oximetry 99 98 03/12/20 20:29 03/12/20 22:00 03/12/20 23:33 Temperature 98.1 F Pulse Rate 80 77 79 Respiratory Rate 18 Blood Pressure 151/85 H Pulse Oximetry 99 03/13/20 00:00 03/13/20 02:00 03/13/20 04:00 Temperature 97.5 F L Pulse Rate 82 92 75 Respiratory Rate 18 Blood Pressure 117/60 Pulse Oximetry 99 03/13/20
--- NOTE | 2020-03-13 16:32 | PM.PNNEP ---
Progress Note: A&P Assessment and Plan (1) Chronic kidney disease, stage 5: Code(s): N18.5 - Chronic kidney disease, stage 5 Status: Acute Assessment and Plan: the patient has chronic kidney disease. This is likely due to hypertension and recurrent stone disease. Vascular disease may be an issue as well. renal u/s shows no acute issues Urine 'lytes non prerenal pt is uremic. He will need to start dialyis. I talked with patient at length. we discsussed the risks, benefits, alternatives, and process. 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 see if fluid removal helps (6) Vitamin D deficiency: Code(s): E55.9 - Vitamin D deficiency, unspecified Status: Acute Assessment and Plan: we can check a vitamin-D (7) Chest pain: Code(s): R07.9 - Chest pain, unspecified Status: Acute Assessment and Plan: this could be indigestion from his uremia echo shows no effusion. no rub. see if this improves with dialysis (8) Erythropoietin deficiency anemia: Code(s): D63.1 - Anemia in chronic kidney disease Status: Acute Assessment and Plan: on epo Subjective Date/time seen: 03/13/20 16:32 Interval history: patient feels the same. still weak and some nausea. mild sob. no cp Review of Systems Cardiovascular: Cardiovascular: Reports no additional cardiovascular complaints Respiratory: Respiratory: Reports no additional respiratory complaints Gastrointestinal: Gastrointestinal: Reports no additional gastrointestinal complaints Genitourinary: Genitourinary: Reports no additional male genitourinary complaints Exam Narrative: Exam Narrative: WDWN in NAD skin no rash or sq nodules head ncat lungs clear to ausc cor reg no rub abd BS+ nontender and soft ext no edema or cyanosis Objective Data Vital Signs Vital Signs: Vital Signs - 24 hr 03/12/20 18:00 03/12/20 20:00 03/12/20 20:29 Temperature 36.8 C Pulse Rate 72 94 80 Respiratory Rate 18 Blood Pressure 135/77 Pulse Oximetry 98 03/12/20 22:00 03/12/20 23:33 03/13/20 00:00 Temperature 36.7 C Pulse Rate 77 79 82 Respiratory Rate 18 Blood Pressure 151/85 H Pulse Oximetry 99 03/13/20 02:00 03/13/20 04:00 03/13/20 06:00 Temperature 36.4 C L Pulse Rate 92 75 79 Respiratory Rate 18 Blood Pressure 117/60 Pulse Oximetry 99 03/13/20 08:00 03/13/20 08:50 03/13/20 10:00 Temperature 36.4 C Pulse Rate 79 69 75 Respiratory Rate 12 Blood Pressure 142/88 H 121/63 Pulse Oximetry 99 03/13/20 11:56 03/13/20 12:00 03/13/20 12:02 Temperature 36.3 C L Pulse Rate 71 71 72 Respiratory Rate 12 Blood Pressure 146/89 H Pulse Oximetry 100 03/13/20 14:00 03/13/20 14:06 03/13/20 14:15 Temperature 36.3 C L Pulse Rate 76 77 75 Respiratory Rate 20 Blood Pressure 166/94 H 159/94 H Pulse Oximetry 03/13/20 14:30 03/13/20 14:45 03/13/20 15:00 Temperature Pulse Rate 69 70 68 Respiratory Rate Blood Pressure 144/88 H 130/80 132/78 Pulse Oximetry 03/13/20 15:30 03/13/20 15:45 Temperature Pulse Rate 88 50 L Respiratory Rate Blood Pressure 141/88 H 106/55 L Pulse Oximetry Intake
--- NOTE | 2020-03-13 16:50 | PC.NURSE ---
Patient returned to room following dialysis.
[2020-03-13] MEDS: CHOLECALCIFEROL 1,000 UNITS TABLET 2000 UNITS PO (17:52)
[2020-03-13] MEDS: FERROUS SULFATE 324 MG TABLET PO (17:52)
[2020-03-13] MEDS: HEPARIN SODIUM 5,000 UNITS/ML VIAL 5000 UNITS SUB-Q (20:12)
[2020-03-14] VITALS (30 sets, daily range): BP systolic 132–164; BP diastolic 81–98; PULSE 73–94; RESP 16–18; TEMP 36.1–37; O2SAT 98–100
[2020-03-14 05:37] LABS: Hematocrit 21.3 % (42.0-52.0); Hemoglobin 7.2 g/dL (14.0-18.0); Mean Corpuscular HGB Conc 33.8 g/dl (32-36); Mean Corpuscular Hemoglobin 28.5 pg (26-34); Mean Corpuscular Volume 84.2 fl (80-100); Mean Platelet Volume 10.6 fl (7.4-10.4); Platelet Count Result 193 k/mm3 (150-375); Red Blood Count 2.53 M/mm3 (4.6-6.20); Red Cell Distribution Width 14.4 % (11.5-14.5); White Blood Count 7.4 K/mm3 (4.5-10.0)
[2020-03-14 06:09] LABS: Albumin Level 3.6 g/dL (3.5-5.1); Anion Gap 16 mmol/L (8-16); Blood Urea Nitrogen 92 mg/dL (9-20); Calcium 6.3 mg/dL (8.4-10.2); Carbon Dioxide 21 mmol/L (22-30); Chloride 99 mmol/L (98-107); Estimated CRCL calculation 9 ml/min; Estimated Glomerular Filt Rate 6; Glucose 106 mg/dL (75-110); Potassium 3.8 mmol/L (3.4-5.0); Sodium 136 mmol/L (137-145)
--- NOTE | 2020-03-14 10:43 | PCDIET ---
Nutrition Follow-Up Complete: Nutrition Diagnosis: Inadequate oral intake related to chest pain as evidenced by weight loss of 2-13 lbs in the past 3 months and poor po intake reported. Nutrition Goal: Meet estimated nutritional needs. Goal in progress. Patient now on renal dialysis diet; consumed average of 83% of meals yesterday. Recommend Nepro (425kcal, 19g protein) 1x daily to ensure adequate protein for dialysis. If medically appropriate, would consider checking ionized calcium and replacing, if indicated. Patient may benefit from calcium based phosphate binder, but would initiate some type of binder, regardless. Last recorded weight is 73.6 kg which is decreased from last review. Patient had 1138mL UF yesterday + 1500mL urine output. Bowel Motility: Last documented BM on 03/11/20. Labs Reviewed: Hgb (7.2), Hct (21.3), BUN (92), Cr (9.2), Na (136), Ca (6.3), PO4 (9.0) Meds Noted: [place], Coreg, Rocephin, Retacrit, Ferrous Sulfate, Sodium Bicarbonate, Vitamin D Additional Notes: Right chest incision s/p line placement. No documented pressure sores. Will continue to monitor with same goal. Nutrition Monitoring and Evaluation: Will follow up in 5 days.
[2020-03-14] MEDS: EPOETIN ALFA-EPBX 10,000 UNITS/ML VIAL 10000 UNITS IV PUSH (10:54)
[2020-03-14] MEDS: HEPARIN SODIUM 1,000 UNITS/ML VIAL 1000 UNITS IV PUSH (11:50)
--- NOTE | 2020-03-14 14:03 | PM.IMPN ---
Progress Note: A&P Assessment and Plan (1) ESRD (end stage renal disease): Code(s): N18.6 - End stage renal disease Status: Acute Assessment and Plan: Patient is a 55-year-old male with history of chronically in disease with significant elevated BUN and creatinine patient had been seen by american sign language teacher and had discuss about the dialysis, patient states the last 4 weeks he is having chest pain on and off, now pain was getting progressively worse, he presented emergency department with a chest apin, was found to have elevated BUN of 134 and creatinine of close to 13, patient was seen by Nephrology and have come to an agreement the patient will need emergent dialysis. pt had diaysis today, pt will need dialysis permanently, will need dialysis set up as outpatient. (2) Elevated troponin: Code(s): R77.8 - Other specified abnormalities of plasma proteins Status: Acute Assessment and Plan: Likely secondary to patient's renal disease and and uncontrolled hypertension. (3) Volume overload: Code(s): E87.70 - Fluid overload, unspecified Status: Acute Assessment and Plan: He may have some component of volume overload related to his kidney disease. (4) Bacteriuria with pyuria: Code(s): R82.71 - Bacteriuria; R82.81 - Pyuria Status: Acute Assessment and Plan: Patient on empiric antibiotic therapy with Rocephin. Subjective Date/time seen: 03/14/20 14:03 Interval history: Patient with end-stage renal disease, pt had dialysis today, pt will need permanent dialysis. He will need dialysis on discharge, home tuesday or tuesday. Telemetry checked no bradycardia noted. Review of Systems Review of Systems: All systems reviewed & are unremarkable except as noted in HPI and below Exam Narrative: Exam Narrative: Patient appears chronically ill older than his age Const: General: no acute distress and uncomfortable HENMT: General nose exam: Normal nares present Eyes: Sclera: sclerae normal Neck: Neck: supple Resp: Other: Bilateral poor air entry with rhonchi Cardio: Rate: regular rate Rhythm: regular rhythm GI: Auscultation: normal bowel sounds Skin: General skin exam: normal color Neuro: Speech: normal speech Sensory Exam: normal sensation Extrem: General: normal to inspection Psych: Affect: Anxious affect present Objective Data Vital Signs Vital Signs: Vital Signs - 24 hr 03/13/20 14:06 03/13/20 14:15 03/13/20 14:30 Temperature 36.3 C L Pulse Rate 77 75 69 Respiratory Rate 20 Blood Pressure 166/94 H 159/94 H 144/88 H Pulse Oximetry 03/13/20 14:45 03/13/20 15:00 03/13/20 15:30 Temperature Pulse Rate 70 68 88 Respiratory Rate Blood Pressure 130/80 132/78 141/88 H Pulse Oximetry 03/13/20 15:45 03/13/20 16:00 03/13/20 16:15 Temperature 36.3 C L Pulse Rate 50 L 66 70 Respiratory Rate 12 Blood Pressure 106/55 L 148/85 H 134/77 Pulse Oximetry 98 03/13/20 16:25 03/13/20 18:00 03/13/20 19:57 Temperature 36.7 C 36.8 C Pulse Rate 75 87 84 Respiratory Rate 20 18 Blood Pressure 140/82 122/77 Pulse Oximetry 100 03/13/20 20:00 03/13/20 20:12 03/13/20 21:25 Temperature Pulse Rate 84 88 73 Respiratory Rate 18 Blood Pressure Pulse Oximetry 100 03/13/20 23:42 03/13/20 23:47 03/14/20 00:00 Temperature 36.6 C Pulse Rate 81 81 78 Respiratory Rate 22 H 22 H Blood Pressure 142/79 H Pulse Oximetry 99 99 03/14/20 02:00 03/14/20 04:00 03/14/20 04:30 Temperature 36.6 C Pulse Rate 75 81 81 Respiratory Rate 16 16 Blood Pressure 148/85 H Pulse Oximetry 98 98 03/14/20 06:00 03/14/20 08:00 03/14/20 08:55 Temperature 36.3 C L 37.0 C Pulse Rate 74 75 81 Respiratory Rate 16 16 Blood Pressure 132/81 154/89 H Pulse Oximetry 99 03/14/20 09:09 03/14/20 09:15 03/14/20 09:30 Temperature Pulse Rate 83 87 76 Respiratory Rate Blood Pressure 156/93 H 1
[2020-03-14] MEDS: FERROUS SULFATE 324 MG TABLET PO ×2 (14:17→19:59)
[2020-03-14] MEDS: CHOLECALCIFEROL 1,000 UNITS TABLET 2000 UNITS PO ×2 (14:17→19:59)
[2020-03-14] MEDS: hydrALAZINE HCL 50 MG TABLET PO ×2 (14:17→20:00)
[2020-03-14] MEDS: SODIUM BICARBONATE TAB 650 MG TABLET PO (14:18)
[2020-03-14] MEDS: HEPARIN SODIUM 5,000 UNITS/ML VIAL 5000 UNITS SUB-Q ×2 (14:18→20:11)
[2020-03-14] MEDS: carvediloL 12.5 MG TABLET PO ×2 (14:18→20:10)
[2020-03-14] MEDS: NIFEdipine 30 MG TAB.ER.24 60 MG PO (14:19)
--- NOTE | 2020-03-14 15:28 | PM.PNNEP ---
Progress Note: A&P Assessment and Plan (1) Chronic kidney disease, stage 5: Code(s): N18.5 - Chronic kidney disease, stage 5 Status: Acute Assessment and Plan: the patient has chronic kidney disease. This is likely due to hypertension and recurrent stone disease. Vascular disease may be an issue as well. renal u/s shows no acute issues Urine 'lytes non prerenal The patient will get dialysis tomorrow. (2) Acute kidney failure, unspecified: Code(s): N17.9 - Acute kidney failure, unspecified Status: Acute Assessment and Plan: No evidence of maggie Will look for recovery of any function as an outpatient as well. 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 see if fluid removal helps (6) Vitamin D deficiency: Code(s): E55.9 - Vitamin D deficiency, unspecified Status: Acute Assessment and Plan: we can check a vitamin-D . I ordered this yesterday but somehow cannot see that it is being done. Will reorder this. (7) Chest pain: Code(s): R07.9 - Chest pain, unspecified Status: Acute Assessment and Plan: this could be indigestion from his uremia echo shows no effusion. no rub. see if this improves with dialysis (8) Erythropoietin deficiency anemia: Code(s): D63.1 - Anemia in chronic kidney disease Status: Acute Assessment and Plan: on epo Subjective Date/time seen: 03/14/20 15:28 Interval history: patient feels the same. He had 2 dialysis treatments. He looks a little bit better. Review of Systems Cardiovascular: Cardiovascular: Reports no additional cardiovascular complaints Respiratory: Respiratory: Reports no additional respiratory complaints Gastrointestinal: Gastrointestinal: Reports no additional gastrointestinal complaints Genitourinary: Genitourinary: Reports no additional male genitourinary complaints Exam Narrative: Exam Narrative: WDWN in NAD skin no rash or sq nodules head ncat lungs clear cor reg no rub abd BS+ nontender and soft ext no edema Objective Data Vital Signs Vital Signs: Vital Signs - 24 hr 03/13/20 15:30 03/13/20 15:45 03/13/20 16:00 Temperature 36.3 C L Pulse Rate 88 50 L 66 Respiratory Rate 12 Blood Pressure 141/88 H 106/55 L 148/85 H Pulse Oximetry 98 03/13/20 16:15 03/13/20 16:25 03/13/20 18:00 Temperature 36.7 C Pulse Rate 70 75 87 Respiratory Rate 20 Blood Pressure 134/77 140/82 Pulse Oximetry 03/13/20 19:57 03/13/20 20:00 03/13/20 20:12 Temperature 36.8 C Pulse Rate 84 84 88 Respiratory Rate 18 18 Blood Pressure 122/77 Pulse Oximetry 100 100 03/13/20 21:25 03/13/20 23:42 03/13/20 23:47 Temperature 36.6 C Pulse Rate 73 81 81 Respiratory Rate 22 H 22 H Blood Pressure 142/79 H Pulse Oximetry 99 99 03/14/20 00:00 03/14/20 02:00 03/14/20 04:00 Temperature Pulse Rate 78 75 81 Respiratory Rate 16 Blood Pressure Pulse Oximetry 98 03/14/20 04:30 03/14/20 06:00 03/14/20 08:00 Temperature 36.6 C 36.3 C L Pulse Rate 81 74 75 Respiratory Rate 16 16 Blood Pressure 148/85 H 132/81 Pulse Oximetry 98 99 03/14/20 08:55 03/14/20 09:09 03/14/20 09:15 Temperature 37.0 C Pulse Rate 81 83 87 Respiratory Rate 16 Blood Pressure 154/89 H 156/93 H 153/98 H Pulse Oximetry 03/14/20 09:30 03/14/20 09:45 03/14/20 10:00 Temperature Pulse Rate 76 75 78
[2020-03-14 17:53] LABS: Vitamin D 25 Hydroxy 19.8 ng/mL
[2020-03-14 21:38] LABS: IFOB Positive Control Positive; Immunochemical Fecal Occult Bl Positive (N)
[2020-03-15] VITALS (29 sets, daily range): BP systolic 142–177; BP diastolic 78–102; PULSE 71–98; RESP 16–20; TEMP 36.2–37.4; O2SAT 98–100
[2020-03-15 04:47] LABS: Hematocrit 21.6 % (42.0-52.0); Hemoglobin 7.1 g/dL (14.0-18.0); Mean Corpuscular HGB Conc 32.9 g/dl (32-36); Mean Corpuscular Hemoglobin 28.3 pg (26-34); Mean Corpuscular Volume 86.1 fl (80-100); Mean Platelet Volume 10.5 fl (7.4-10.4); Platelet Count Result 175 k/mm3 (150-375); Red Blood Count 2.51 M/mm3 (4.6-6.20); Red Cell Distribution Width 14.2 % (11.5-14.5); White Blood Count 7.6 K/mm3 (4.5-10.0)
[2020-03-15 05:15] LABS: Albumin Level 3.4 g/dL (3.5-5.1); Anion Gap 12 mmol/L (8-16); Blood Urea Nitrogen 59 mg/dL (9-20); Calcium 6.5 mg/dL (8.4-10.2); Carbon Dioxide 26 mmol/L (22-30); Chloride 97 mmol/L (98-107); Estimated CRCL calculation 11 ml/min; Estimated Glomerular Filt Rate 8; Glucose 100 mg/dL (75-110); Phosphorus 6.5 mg/dL (2.5-4.5); Potassium 3.5 mmol/L (3.4-5.0); Sodium 135 mmol/L (137-145)
--- NOTE | 2020-03-15 11:55 | PM.PNNEP ---
Progress Note: A&P Assessment and Plan (1) Chronic kidney disease, stage 5: Code(s): N18.5 - Chronic kidney disease, stage 5 Status: Acute Assessment and Plan: the patient has end-stage renal disease. He is on dialysis now. He lives near the [employer] [facility] unit so will get him set up there. (2) Acute kidney failure, unspecified: Code(s): N17.9 - Acute kidney failure, unspecified Status: Acute Assessment and Plan: No evidence of maggie Will look for recovery of any function as an outpatient as well. 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 on atbs (4) BPH w/o urinary obs/LUTS: Code(s): N40.0 - Benign prostatic hyperplasia without lower urinary tract symptoms Status: Acute Assessment and Plan: no hydro (5) Hypertension with heart disease: Code(s): I11.9 - Hypertensive heart disease without heart failure Status: Acute Assessment and Plan: his blood pressure is generous. Will start MABEL-inhibitor. (6) Vitamin D deficiency: Code(s): E55.9 - Vitamin D deficiency, unspecified Status: Acute Assessment and Plan: Vitamin-D is low. Will change to ergocalciferol weekly (7) Chest pain: Code(s): R07.9 - Chest pain, unspecified Status: Acute Assessment and Plan: this could be indigestion from his uremia echo shows no effusion. no rub. nausea is better today. (8) Erythropoietin deficiency anemia: Code(s): D63.1 - Anemia in chronic kidney disease Status: Acute Assessment and Plan: on epo Subjective Date/time seen: 03/15/20 11:55 Interval history: patient feels the same. He is on dialysis and tolerating it well. He was seen at 10:30 a.m.. Exam Narrative: Exam Narrative: WDWN in NAD skin no rash or sq nodules head ncat lungs clear to auscultation cor reg no rub abd BS+ nontender and soft ext Trace edema Objective Data Vital Signs Vital Signs: Vital Signs - 24 hr 03/14/20 12:00 03/14/20 14:00 03/14/20 14:18 Temperature 36.1 C L Pulse Rate 87 93 94 Respiratory Rate 18 Blood Pressure 162/88 H Pulse Oximetry 98 03/14/20 16:00 03/14/20 18:00 03/14/20 20:00 Temperature 37.0 C 36.6 C Pulse Rate 85 90 87 Respiratory Rate 18 18 Blood Pressure 150/85 H 143/86 H Pulse Oximetry 99 100 03/14/20 20:10 03/14/20 22:00 03/14/20 23:59 Temperature 36.4 C L Pulse Rate 82 76 79 Respiratory Rate 16 Blood Pressure 140/83 Pulse Oximetry 99 03/15/20 00:00 03/15/20 02:00 03/15/20 04:00 Temperature 36.2 C L Pulse Rate 83 73 81 Respiratory Rate 16 20 Blood Pressure 149/94 H Pulse Oximetry 99 99 03/15/20 06:00 03/15/20 08:29 03/15/20 08:51 Temperature 36.6 C 36.8 C Pulse Rate 78 98 92 Respiratory Rate 16 18 Blood Pressure 144/84 H 175/99 H Pulse Oximetry 98 03/15/20 09:10 03/15/20 09:15 03/15/20 09:30 Temperature Pulse Rate 85 85 81 Respiratory Rate Blood Pressure 164/91 H 164/91 H 154/84 H Pulse Oximetry 03/15/20 10:00 03/15/20 10:15 03/15/20 10:30 Temperature Pulse Rate 79 78 Respiratory Rate Blood Pressure 154/78 H 149/93 H 149/87 H Pulse Oximetry 03/15/20 10:45 03/15/20 11:00 03/15/20 11:15 Temperature Pulse Rate 77 86 78 Respiratory Rate Blood Pressure 163/94 H 166/102 H 152/100 H Pulse Oximetry 03/15/20 11:30 Temperature Pulse Rate 75 Respiratory Rate Blood Pressure 177/93 H Pulse Oximetry Intake/Output Intake/Output: Intake & Output 03/12/20 03/13/20 03/14/20 03/15/20 23:59 23:59 23:59 23:59 Intake Total 640 454 3236 1370 Output Total 2050 3467 2970 1065 Ebcxyvy -6008 -1878 -390 305 Meds/Results Medications: Active Medications Generic Name Dose Route Start Last
--- NOTE | 2020-03-15 12:40 | PM.IMPN ---
Progress Note: A&P Assessment and Plan (1) ESRD (end stage renal disease): Code(s): N18.6 - End stage renal disease Status: Acute Assessment and Plan: Patient is a 55-year-old male with history of chronically in disease with significant elevated BUN and creatinine patient had been seen by covered buckle assembler and had discuss about the dialysis, patient states the last 4 weeks he is having chest pain on and off, now pain was getting progressively worse, he presented emergency department with a chest pain, was found to have elevated BUN of 134 and creatinine of close to 13, patient was seen by Nephrology and have come to an agreement the patient will need emergent dialysis. pt having diaysis today,3 round, pt will need dialysis permanently, will need dialysis set up as outpatient. (2) Elevated troponin: Code(s): R77.8 - Other specified abnormalities of plasma proteins Status: Acute Assessment and Plan: Likely secondary to patient's renal disease and and uncontrolled hypertension. (3) Volume overload: Code(s): E87.70 - Fluid overload, unspecified Status: Acute Assessment and Plan: He may have some component of volume overload related to his kidney disease. (4) Bacteriuria with pyuria: Code(s): R82.71 - Bacteriuria; R82.81 - Pyuria Status: Acute Assessment and Plan: Patient on empiric antibiotic therapy with Rocephin. Subjective Date/time seen: 03/15/20 12:40 Interval history: Patient with end-stage renal disease, pt had dialysis today, pt will need permanent dialysis. He will need dialysis on discharge, home tuesday or tuesday. Telemetry checked no bradycardia noted. Pt seen in dialysis doing well, bit anxious. Review of Systems Review of Systems: All systems reviewed & are unremarkable except as noted in HPI and below Exam Narrative: Exam Narrative: Patient appears chronically ill older than his age Const: General: no acute distress and uncomfortable HENMT: General nose exam: Normal nares present Eyes: Sclera: sclerae normal Neck: Neck: supple Resp: Other: Decreased BL breath sounds Cardio: Rate: regular rate Rhythm: regular rhythm GI: Auscultation: normal bowel sounds Skin: General skin exam: normal color Neuro: Speech: normal speech Sensory Exam: normal sensation Extrem: General: normal to inspection Psych: Affect: Anxious affect present Objective Data Vital Signs Vital Signs: Vital Signs - 24 hr 03/14/20 14:00 03/14/20 14:18 03/14/20 16:00 Temperature 37.0 C Pulse Rate 93 94 85 Respiratory Rate 18 Blood Pressure 150/85 H Pulse Oximetry 99 03/14/20 18:00 03/14/20 20:00 03/14/20 20:10 Temperature 36.6 C Pulse Rate 90 87 82 Respiratory Rate 18 Blood Pressure 143/86 H Pulse Oximetry 100 03/14/20 22:00 03/14/20 23:59 03/15/20 00:00 Temperature 36.4 C L Pulse Rate 76 79 83 Respiratory Rate 16 16 Blood Pressure 140/83 Pulse Oximetry 99 99 03/15/20 02:00 03/15/20 04:00 03/15/20 06:00 Temperature 36.2 C L Pulse Rate 73 81 78 Respiratory Rate 20 Blood Pressure 149/94 H Pulse Oximetry 99 03/15/20 08:00 03/15/20 08:29 03/15/20 08:51 Temperature 36.6 C 36.8 C Pulse Rate 90 98 92 Respiratory Rate 16 18 Blood Pressure 144/84 H 175/99 H Pulse Oximetry 98 03/15/20 09:10 03/15/20 09:15 03/15/20 09:30 Temperature Pulse Rate 85 85 81 Respiratory Rate Blood Pressure 164/91 H 164/91 H 154/84 H Pulse Oximetry 03/15/20 10:00 03/15/20 10:15 03/15/20 10:30 Temperature Pulse Rate 79 78 Respiratory Rate Blood Pressure 154/78 H 149/93 H 149/87 H Pulse Oximetry 03/15/20 10:45 03/15/20 11:00 03/15/20 11:15 Temperature Pulse Rate 77 86 78 Respiratory Rate Blood Pressure 163/94 H 166/102 H 152/100 H Pulse Oximetry 03/15/20 11:30 03/15/20 11:45 03/15/20 12:00 Temperature Pulse Rate 75 80 78 Respiratory Rate B
[2020-03-15] MEDS: HEPARIN SODIUM 5,000 UNITS/ML VIAL 5000 UNITS SUB-Q ×2 (13:54→21:38)
[2020-03-15] MEDS: hydrALAZINE HCL 50 MG TABLET PO ×2 (13:54→16:58)
[2020-03-15] MEDS: SODIUM BICARBONATE TAB 650 MG TABLET PO (13:55)
[2020-03-15] MEDS: carvediloL 12.5 MG TABLET PO ×2 (13:55→21:38)
[2020-03-15] MEDS: FERROUS SULFATE 324 MG TABLET PO ×2 (13:55→16:58)
[2020-03-15] MEDS: CHOLECALCIFEROL 1,000 UNITS TABLET 2000 UNITS PO ×2 (13:56→16:57)
[2020-03-15] MEDS: NIFEdipine 30 MG TAB.ER.24 60 MG PO (13:56)
[2020-03-15] MEDS: HYDROcodone/acetaminophen (*CRX) 5-325 MG TABLET 1 TAB PO (16:57)
--- NOTE | 2020-03-15 18:52 | PC.NURSE ---
This patient, Audi Rosenthal, was transferred to [facility] on 03/15/20 at 1852. Personal belongings sent with patient. Report given to Ramandeep ARDON. Appropriate documentation sent with patient.
[2020-03-16] VITALS (16 sets, daily range): BP systolic 115–139; BP diastolic 63–79; PULSE 67–84; RESP 14–18; TEMP 36.6–37.3; O2SAT 96–99
[2020-03-16 05:30] LABS: Albumin 3.4 g/dL (3.8-4.8); Alpha 1 Globulin 0.3 g/dL (0.2-0.3); Alpha 2 Globulin 0.6 g/dL (0.5-0.9); Beta 1 Globulin 0.3 g/dL (0.4-0.6); Gamma Globulin 0.7 g/dL (0.8-1.7); Protein, Total 5.6 g/dL (6.1-8.1)
[2020-03-16 05:34] LABS: Hematocrit 21.7 % (42.0-52.0); Mean Corpuscular HGB Conc 32.3 g/dl (32-36); Mean Corpuscular Hemoglobin 28.2 pg (26-34); Mean Corpuscular Volume 87.5 fl (80-100); Mean Platelet Volume 10.4 fl (7.4-10.4); Platelet Count Result 161 k/mm3 (150-375); Red Blood Count 2.48 M/mm3 (4.6-6.20); Red Cell Distribution Width 14.2 % (11.5-14.5); White Blood Count 8.3 K/mm3 (4.5-10.0)
[2020-03-16 06:13] LABS: Albumin Level 3.3 g/dL (3.5-5.1); Anion Gap 10 mmol/L (8-16); Blood Urea Nitrogen 42 mg/dL (9-20); Calcium 6.7 mg/dL (8.4-10.2); Carbon Dioxide 33 mmol/L (22-30); Chloride 88 mmol/L (98-107); Estimated CRCL calculation 14 ml/min; Estimated Glomerular Filt Rate 10; Glucose 85 mg/dL (75-110); Phosphorus 5.9 mg/dL (2.5-4.5); Potassium 3.7 mmol/L (3.4-5.0); Sodium 131 mmol/L (137-145)
[2020-03-16] MEDS: FERROUS SULFATE 324 MG TABLET PO ×2 (08:03→16:14)
[2020-03-16] MEDS: CHOLECALCIFEROL 1,000 UNITS TABLET 2000 UNITS PO ×2 (08:03→16:14)
[2020-03-16] MEDS: SODIUM BICARBONATE TAB 650 MG TABLET PO (08:03)
[2020-03-16] MEDS: NIFEdipine 30 MG TAB.ER.24 60 MG PO (08:03)
[2020-03-16] MEDS: hydrALAZINE HCL 50 MG TABLET PO ×3 (08:03→16:14)
[2020-03-16] MEDS: HEPARIN SODIUM 5,000 UNITS/ML VIAL 5000 UNITS SUB-Q ×2 (08:04→20:47)
[2020-03-16] MEDS: carvediloL 12.5 MG TABLET PO ×2 (08:05→20:48)
--- NOTE | 2020-03-16 08:05 | PM.PNNEP ---
Progress Note: A&P Assessment and Plan (1) Chronic kidney disease, stage 5: Code(s): N18.5 - Chronic kidney disease, stage 5 Status: Acute Assessment and Plan: the patient has end-stage renal disease. He is on dialysis now. care coordination saw and is setting him up at [facility] (2) Acute kidney failure, unspecified: Code(s): N17.9 - Acute kidney failure, unspecified Status: Acute Assessment and Plan: No evidence of maggie Will look for recovery of any function as an outpatient as well. 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 Will start MABEL-inhibitor. (6) Vitamin D deficiency: Code(s): E55.9 - Vitamin D deficiency, unspecified Status: Acute Assessment and Plan: Vitamin-D is low. Will change to ergocalciferol weekly (7) Chest pain: Code(s): R07.9 - Chest pain, unspecified Status: Acute Assessment and Plan: this could be indigestion from his uremia echo shows no effusion. no rub. nausea is better today. (8) Erythropoietin deficiency anemia: Code(s): D63.1 - Anemia in chronic kidney disease Status: Acute Assessment and Plan: on epo Subjective Date/time seen: 03/16/20 08:05 Interval history: patient feels better. No more nausea. Breathing okay. Eating breakfast. Review of Systems Cardiovascular: Cardiovascular: Reports no additional cardiovascular complaints Respiratory: Respiratory: Reports no additional respiratory complaints Gastrointestinal: Gastrointestinal: Reports no additional gastrointestinal complaints Genitourinary: Genitourinary: Reports no additional male genitourinary complaints Exam Narrative: Exam Narrative: WDWN in NAD skin no rash or sq nodules head ncat lungs clear bilaterally cor reg no rub abd BS+ nontender and soft ext Trace edema Objective Data Vital Signs Vital Signs: Vital Signs - 24 hr 10/10/20 08:29 03/15/20 08:51 03/15/20 09:10 Temperature 36.6 C 36.8 C Pulse Rate 98 92 85 Respiratory Rate 16 18 Blood Pressure 144/84 H 175/99 H 164/91 H Pulse Oximetry 98 03/15/20 09:15 03/15/20 09:30 03/15/20 10:00 Temperature Pulse Rate 85 81 79 Respiratory Rate Blood Pressure 164/91 H 154/84 H 154/78 H Pulse Oximetry 03/15/20 10:15 03/15/20 10:30 03/15/20 10:45 Temperature Pulse Rate 78 77 Respiratory Rate Blood Pressure 149/93 H 149/87 H 163/94 H Pulse Oximetry 03/15/20 11:00 03/15/20 11:15 03/15/20 11:30 Temperature Pulse Rate 86 78 75 Respiratory Rate Blood Pressure 166/102 H 152/100 H 177/93 H Pulse Oximetry 03/15/20 11:45 03/15/20 12:00 03/15/20 12:13 Temperature Pulse Rate 80 77 78 Respiratory Rate Blood Pressure 162/101 H 172/87 H 163/97 H Pulse Oximetry 03/15/20 12:20 03/15/20 13:55 03/15/20 14:00 Temperature 37.4 C Pulse Rate 71 87 89 Respiratory Rate 18 Blood Pressure 142/82 H Pulse Oximetry 03/15/20 16:00 03/15/20 17:04 03/15/20 19:56 Temperature 36.6 C 36.9 C Pulse Rate 76 84 77 Respiratory Rate 16 16 Blood Pressure 149/86 H 143/85 H Pulse Oximetry 99 100 03/15/20 20:00 03/15/20 21:38 03/16/20 00:00 Temperature Pulse Rate 81 78 81 Respiratory Rate Blood Pressure Pulse Oximetry 03/16/20 04:17 03/16/20 04:37 Temperature 36.8 C Pulse Rate 73 70 Respiratory Rate 16 Blood P
[2020-03-16] MEDS: SODIUM CHLORIDE 0.9% IV 250 ML 30 ML IV CONT (10:45)
[2020-03-16] MEDS: CALCIUM ACETATE 667 MG TABLET PO ×2 (10:51→16:14)
[2020-03-16] MEDS: VITAMIN B CMPLX/VIT C/FOLIC AC 1 CAPSULE 1 CAP PO (10:51)
--- NOTE | 2020-03-16 14:41 | PM.IMPN ---
Progress Note: A&P Assessment and Plan (1) ESRD (end stage renal disease): Code(s): N18.6 - End stage renal disease Status: Acute Assessment and Plan: Patient is a 55-year-old male with history of chronically in disease with significant elevated BUN and creatinine patient had been seen by ic design engineer and had discuss about the dialysis, patient states the last 4 weeks he is having chest pain on and off, now pain was getting progressively worse, he presented emergency department with a chest pain, was found to have elevated BUN of 134 and creatinine of close to 13, patient was seen by Nephrology and have come to an agreement the patient will need emergent dialysis. pt had diaysis 3 rounds, pt will need dialysis permanently, will need dialysis set up as outpatient. Please note pt still has temporary tunnel catheter in situ needs permanent one in the future. (2) Elevated troponin: Code(s): R77.8 - Other specified abnormalities of plasma proteins Status: Acute Assessment and Plan: Likely secondary to patient's renal disease and and uncontrolled hypertension. (3) Volume overload: Code(s): E87.70 - Fluid overload, unspecified Status: Acute Assessment and Plan: He may have some component of volume overload related to his kidney disease. (4) Bacteriuria with pyuria: Code(s): R82.71 - Bacteriuria; R82.81 - Pyuria Status: Acute Assessment and Plan: Patient on empiric antibiotic therapy with Rocephin. (5) Erythropoietin deficiency anemia: Code(s): D63.1 - Anemia in chronic kidney disease Status: Acute Assessment and Plan: Pt having blood transfusion on discharge Subjective Date/time seen: 03/16/20 14:41 Interval history: Patient with end-stage renal disease, pt had dialysis today, pt will need permanent dialysis. He will need dialysis on discharge, home Tuesday. Telemetry checked no bradycardia noted. Pt seen in dialysis doing well, bit anxious. Pt has had 3 rounds of dialysis so far. Review of Systems Review of Systems: All systems reviewed & are unremarkable except as noted in HPI and below Exam Narrative: Exam Narrative: Patient appears chronically ill older than his age temporary tunnel catheter insitu Const: General: no acute distress and uncomfortable HENMT: General nose exam: Normal nares present Eyes: Sclera: sclerae normal Neck: Neck: supple Resp: Other: Clear lung sounds Cardio: Rate: regular rate Rhythm: regular rhythm GI: Auscultation: normal bowel sounds Skin: General skin exam: normal color Neuro: Speech: normal speech Sensory Exam: normal sensation Extrem: General: normal to inspection Psych: Affect: Anxious affect present Objective Data Vital Signs Vital Signs: Vital Signs - 24 hr 03/15/20 16:00 03/15/20 17:04 03/15/20 19:56 Temperature 36.6 C 36.9 C Pulse Rate 76 84 77 Respiratory Rate 16 16 Blood Pressure 149/86 H 143/85 H Pulse Oximetry 99 100 03/15/20 20:00 03/15/20 21:38 03/16/20 00:00 Temperature Pulse Rate 81 78 81 Respiratory Rate Blood Pressure Pulse Oximetry 03/16/20 04:17 03/16/20 04:37 03/16/20 08:00 Temperature 36.8 C Pulse Rate 73 70 84 Respiratory Rate 16 18 Blood Pressure 139/79 Pulse Oximetry 96 97 03/16/20 08:05 03/16/20 10:00 03/16/20 10:37 Temperature 37.1 C 37.3 C Pulse Rate 70 70 75 Respiratory Rate 16 18 Blood Pressure 115/65 130/66 Pulse Oximetry 98 97 03/16/20 10:55 03/16/20 11:53 03/16/20 12:55 Temperature 36.9 C 37.1 C 36.6 C Pulse Rate 70 70 77 Respiratory Rate 18 16 16 Blood Pressure 119/71 124/75 135/74 Pulse Oximetry 98 98 98 03/16/20 14:19 Temperature 37.1 C Pulse Rate 72 Respiratory Rate 16 Blood Pressure 130/73 Pulse Oximetry 96 Intake/Output Intake/Output: Intake & Output 03/13/20 03/14/20 03/15/20 03/16/20 23:59 23:59 23:59 23:59 Intake Total 620 5965 4641 6713
[2020-03-16 15:40] LABS: Hematocrit 23.8 % (42.0-52.0); Hemoglobin 7.9 g/dL (14.0-18.0)
[2020-03-17] VITALS (10 sets, daily range): BP systolic 111–135; BP diastolic 59–81; PULSE 69–104; RESP 12–16; TEMP 36.6–37.2; O2SAT 96–99
[2020-03-17 05:27] LABS: Creatinine, Random Urine 40 mg/dL (20-320); Total Protein/Creatinine Ratio 2100 mg/g creat (22-128)
[2020-03-17] MEDS: CALCIUM ACETATE 667 MG TABLET PO ×3 (05:30→16:54)
[2020-03-17 05:42] LABS: Hematocrit 23.8 % (42.0-52.0); Mean Corpuscular HGB Conc 33.6 g/dl (32-36); Mean Corpuscular Hemoglobin 28.9 pg (26-34); Mean Corpuscular Volume 85.9 fl (80-100); Mean Platelet Volume 10.4 fl (7.4-10.4); Platelet Count Result 164 k/mm3 (150-375); Red Blood Count 2.77 M/mm3 (4.6-6.20); Red Cell Distribution Width 13.8 % (11.5-14.5); White Blood Count 8.4 K/mm3 (4.5-10.0)
[2020-03-17 06:21] LABS: Albumin Level 3.2 g/dL (3.5-5.1); Anion Gap 11 mmol/L (8-16); Blood Urea Nitrogen 58 mg/dL (9-20); Calcium 6.4 mg/dL (8.4-10.2); Carbon Dioxide 26 mmol/L (22-30); Chloride 86 mmol/L (98-107); Estimated CRCL calculation 12 ml/min; Estimated Glomerular Filt Rate 8; Glucose 84 mg/dL (75-110); Phosphorus 7.5 mg/dL (2.5-4.5); Potassium 3.6 mmol/L (3.4-5.0); Sodium 123 mmol/L (137-145)
[2020-03-17 07:59] LABS: Anion Gap 13 mmol/L (8-16); Blood Urea Nitrogen 60 mg/dL (9-20); Calcium 6.7 mg/dL (8.4-10.2); Carbon Dioxide 28 mmol/L (22-30); Chloride 84 mmol/L (98-107); Estimated CRCL calculation 11 ml/min; Estimated Glomerular Filt Rate 8; Glucose 88 mg/dL (75-110); Potassium 3.8 mmol/L (3.4-5.0); Sodium 125 mmol/L (137-145)
[2020-03-17] MEDS: FERROUS SULFATE 324 MG TABLET PO ×2 (08:26→16:54)
[2020-03-17] MEDS: CHOLECALCIFEROL 1,000 UNITS TABLET 2000 UNITS PO ×2 (08:26→16:54)
[2020-03-17] MEDS: SODIUM BICARBONATE TAB 650 MG TABLET PO (08:27)
[2020-03-17] MEDS: hydrALAZINE HCL 50 MG TABLET PO ×3 (08:28→16:55)
[2020-03-17] MEDS: VITAMIN B CMPLX/VIT C/FOLIC AC 1 CAPSULE 1 CAP PO (08:28)
[2020-03-17] MEDS: NIFEdipine 30 MG TAB.ER.24 60 MG PO (08:28)
[2020-03-17] MEDS: carvediloL 12.5 MG TABLET PO ×2 (08:28→20:34)
--- NOTE | 2020-03-17 17:19 | PM.IMPN ---
Progress Note: A&P Assessment and Plan (1) ESRD (end stage renal disease): Code(s): N18.6 - End stage renal disease Status: Acute Assessment and Plan: Patient is a 55-year-old male with history of chronically in disease with significant elevated BUN and creatinine patient had been seen by manufacturing test technician and had discuss about the dialysis, patient states the last 4 weeks he is having chest pain on and off, now pain was getting progressively worse, he presented emergency department with a chest pain, was found to have elevated BUN of 134 and creatinine of close to 13, patient was seen by Nephrology and have come to an agreement the patient will need emergent dialysis. pt had diaysis 3 rounds, pt will need dialysis permanently, will need dialysis set up as outpatient. Please note pt still has temporary tunnel catheter in situ needs permanent one in the future. 03/17/20 17:19 today patient is feeling much he has had 3 sessions of dialysis and plan was to have another dialysis today and hope to discharge and schedule outpatient dialysis however patient will need permanent catheter for outpatient dialysis, today patient states feeling much denies any chest pain shortness of breath palpitation fever, patient is seen by manufacturing test technician and further recommendation to follow. (2) Elevated troponin: Code(s): R77.8 - Other specified abnormalities of plasma proteins Status: Acute Assessment and Plan: Likely secondary to patient's renal disease and and uncontrolled hypertension. (3) Volume overload: Code(s): E87.70 - Fluid overload, unspecified Status: Acute Assessment and Plan: He may have some component of volume overload related to his kidney disease. (4) Bacteriuria with pyuria: Code(s): R82.71 - Bacteriuria; R82.81 - Pyuria Status: Acute Assessment and Plan: Patient on empiric antibiotic therapy with Rocephin. (5) Erythropoietin deficiency anemia: Code(s): D63.1 - Anemia in chronic kidney disease Status: Acute Assessment and Plan: Pt having blood transfusion on discharge Subjective Date/time seen: 03/17/20 17:19 today patient is feeling much he has had 3 sessions of dialysis and plan was to have another dialysis today and hope to discharge and schedule outpatient dialysis however patient will need permanent catheter for outpatient dialysis, today patient states feeling much denies any chest pain shortness of breath palpitation fever, patient is seen by manufacturing test technician and further recommendation to follow. Review of Systems Review of Systems: All systems reviewed & are unremarkable except as noted in HPI and below Exam Narrative: Exam Narrative: Patient is comfortable, NAD HEENT: eyes are clear and none icteric LUNGS:CTA HEART: RR S1S2 ABD: BS+, Soft and nontender Lower extremities: no edema SKIN: nonjaundiced Neuro: grossly intact. Objective Data Vital Signs Vital Signs: Vital Signs - 24 hr 03/16/20 20:00 03/16/20 20:09 03/16/20 20:48 Temperature 98 F Pulse Rate 75 71 70 Respiratory Rate 14 Blood Pressure 130/63 Pulse Oximetry 99 03/17/20 00:00 03/17/20 04:00 03/17/20 05:06 Temperature 98 F Pulse Rate 84 69 104 H Respiratory Rate 16 Blood Pressure 111/59 L Pulse Oximetry 96 03/17/20 08:00 03/17/20 08:28 03/17/20 12:00 Temperature Pulse Rate 76 76 74 Respiratory Rate Blood Pressure Pulse Oximetry 03/17/20 14:51 03/17/20 16:00 Temperature 99.0 F Pulse Rate 72 81 Respiratory Rate 16 Blood Pressure 124/73 Pulse Oximetry 98 Intake/Output Intake/Output: Intake & Output 03/14/20 03/15/20 03/16/20 03/17/20 23:59 23:59 23:59 23:59 Intake Total 2960 3166 2390 2430 Output Total 3350 3065 2350 1425 Balance -390 474 57 3617 Meds/Results Medications: Active Medications Generic Name Dose Route Start Last Admin Trade Name Freq PRN Reason Stop Dose Admin
--- NOTE | 2020-03-17 18:23 | P.PNNP_ITS ---
Progress Note: A&P Assessment and Plan (1) End stage renal disease: Code(s): N18.6 - End stage renal disease Status: Chronic Assessment and Plan: * due to progression of advanced kidney disease * s/p tunneled HD catheter placement * tolerating dialysis treatment in general -- next HD treatment tomorrow * follow electrolytes, volume status, and clearance (2) Uremia: Code(s): N19 - Unspecified kidney failure Status: Acute Assessment and Plan: * noted on admission * doing better at this time * eating and drinking well (3) Hypertension with heart disease: Code(s): I11.9 - Hypertensive heart disease without heart failure Status: Acute Assessment and Plan: * doing quite well at this time * follow trend of hemodynamics (4) Vitamin D deficiency: Code(s): E55.9 - Vitamin D deficiency, unspecified Status: Acute Assessment and Plan: * on weekly ergocalciferol * follow calcium and phosphorus (5) UTI (urinary tract infection): Code(s): N39.0 - Urinary tract infection, site not specified Status: Acute Assessment and Plan: * urine culture with coag negative Staph * on antibiotics (6) Anemia: Code(s): D64.9 - Anemia, unspecified Status: Chronic Assessment and Plan: * due to ESRD * on Epogen with HD * adequate iron store * follow trend of H/H Will continue to follow. Subjective Date/time seen: 03/17/20 18:23 Seems to be doing reasonably well; tolerating dialysis treatment fairly well; at bedside and we discussed the situation; eating dinner at the time of my visit. Exam Narrative: Exam Narrative: General: WD/WN male in NAD Heart: normal S1 and S2; no rub Lungs: clear to auscultation Abdomen: soft, nontender, nondistended, positive bowel sounds Extremities: no cyanosis or clubbing; trace edema Skin: warm and dry Objective Data Vital Signs Vital Signs: Vital Signs Temp Pulse Resp BP Pulse Ox 03/17/20 16:00 81 03/17/20 14:51 37.2 C 72 16 124/73 98 03/17/20 12:00 74 03/17/20 08:28 76 03/17/20 08:00 76 03/17/20 05:06 36.6 C 104 H 16 111/59 L 96 03/17/20 04:00 69 03/17/20 00:00 84 03/16/20 20:48 70 03/16/20 20:09 36.6 C 71 14 130/63 99 03/16/20 20:00 75 Intake/Output Intake/Output: Intake & Output 03/14/20 03/15/20 03/16/20 03/17/20 23:59 23:59 23:59 23:59 Intake Total 2960 3166 2390 2430 Output Total 3350 3065 2350 1875 Balance -390 101 40 555 Meds/Results Medications: Active Medications Generic Name Dose Route Start Last Admin Trade Name Freq PRN Reason Stop Dose Admin Acetaminophen 500 mg 03/12/20 13:21 Tylenol Tablet PO Q6H PRN Mild Pain (1-3) or Fever Hydrocodone Bitart/Acetaminophen 1 tab 03/12/20 13:21 03/15/20 16:57 Hydrocodone/Acetaminophen (*Crx) 5-325 Mg Tablet PO 1 tab Q4H PRN Administration Pain Rated 4-6 Calcium Acetate 667 mg 03/16/20 11:30 03/17/20 16:54 Calcium Acetate 667 Mg Tablet PO 667 mg TIDAC TOM Administration Carvedilol 12.5 mg 03/11/20 23:15 03/17/20 08:2
--- NOTE | 2020-03-17 18:23 | PM.PNNEP ---
Progress Note: A&P Assessment and Plan (1) End stage renal disease: Code(s): N18.6 - End stage renal disease Status: Chronic Assessment and Plan: due to progression of advanced kidney disease s/p tunneled HD catheter placement tolerating dialysis treatment in general -- next HD treatment tomorrow follow electrolytes, volume status, and clearance (2) Uremia: Code(s): N19 - Unspecified kidney failure Status: Acute Assessment and Plan: noted on admission doing better at this time eating and drinking well (3) Hypertension with heart disease: Code(s): I11.9 - Hypertensive heart disease without heart failure Status: Acute Assessment and Plan: doing quite well at this time follow trend of hemodynamics (4) Vitamin D deficiency: Code(s): E55.9 - Vitamin D deficiency, unspecified Status: Acute Assessment and Plan: on weekly ergocalciferol follow calcium and phosphorus (5) UTI (urinary tract infection): Code(s): N39.0 - Urinary tract infection, site not specified Status: Acute Assessment and Plan: urine culture with coag negative Staph on antibiotics (6) Anemia: Code(s): D64.9 - Anemia, unspecified Status: Chronic Assessment and Plan: due to ESRD on Epogen with HD adequate iron store follow trend of H/H Will continue to follow. Subjective Date/time seen: 03/17/20 18:23 Seems to be doing reasonably well; tolerating dialysis treatment fairly well; at bedside and we discussed the situation; eating dinner at the time of my visit. Exam Narrative: Exam Narrative: General: WD/WN male in NAD Heart: normal S1 and S2; no rub Lungs: clear to auscultation Abdomen: soft, nontender, nondistended, positive bowel sounds Extremities: no cyanosis or clubbing; trace edema Skin: warm and dry Objective Data Vital Signs Vital Signs: Vital Signs Temp Pulse Resp BP Pulse Ox 03/17/20 16:00 81 03/17/20 14:51 37.2 C 72 16 124/73 98 03/17/20 12:00 74 03/17/20 08:28 76 03/17/20 08:00 76 03/17/20 05:06 36.6 C 104 H 16 111/59 L 96 03/17/20 04:00 69 03/17/20 00:00 84 03/16/20 20:48 70 03/16/20 20:09 36.6 C 71 14 130/63 99 03/16/20 20:00 75 Intake/Output Intake/Output: Intake & Output 03/14/20 03/15/20 03/16/20 03/17/20 23:59 23:59 23:59 23:59 Intake Total 2960 3166 2390 2430 Output Total 3350 3065 2350 1875 Balance -390 101 40 555 Meds/Results Medications: Active Medications Generic Name Dose Route Start Last Admin Trade Name Freq PRN Reason Stop Dose Admin Acetaminophen 500 mg 03/12/20 13:21 Tylenol Tablet PO Q6H PRN Mild Pain (1-3) or Fever Hydrocodone Bitart/Acetaminophen 1 tab 03/12/20 13:21 03/15/20 16:57 Hydrocodone/Acetaminophen (*Crx) 5-325 Mg Tablet PO 1 tab Q4H PRN Administration Pain Rated 4-6 Calcium Acetate 667 mg 03/16/20 11:30 03/17/20 16:54 Calcium Acetate 667 Mg Tablet PO 667 mg TIDAC [facility] Administration Carvedilol 12.5 mg 03/11/20 23:15 03/17/20 08:28 Coreg PO 12.5 mg Q12HR [facility] Administration Epoetin Elieser-epbx 10,000 units 03/13/20 09:35 03/15/20 13:51 Epoetin Elieser-Epbx 10,000 Units/Ml Vial IV PUSH Not Given TUTHSA [facility] Fentanyl Citrate 25 mcg 03/12/20 10:17 Sublimaze IV PUSH Q2M PRN Pain Ferrous Sulfate 324 mg 03/12/20 08:00 03/17/20 16:54 Ferrous Sulfate PO 324 mg BIDWM [facility] Administration Heparin Sodium (Porcine) 5,000 units 03/12/20 09:00 03/17/20 08:29 Heparin Sodium 5,000 Units/Ml Vial SUB-Q Not Given Q12HR [facility] Hydralazine HCl 50 mg 03/11/20 23:15 03/17/20 16:55 Apresoline Tablet PO 50 mg TID [facility] Administration Ceftriaxone Sodium/Dextrose 1 gm in 50 mls @ 100 mls/hr 03/12/20 05:00 03/17/20 06:00 Rocephin 1 Gm/D5w 50 Ml IVPB Infused Q24H TOM Inf
[2020-03-17] MEDS: HEPARIN SODIUM 5,000 UNITS/ML VIAL 5000 UNITS SUB-Q (20:34)
[2020-03-18] VITALS (22 sets, daily range): BP systolic 132–180; BP diastolic 74–97; PULSE 64–98; RESP 16–18; TEMP 36.2–37.2; O2SAT 98–100
[2020-03-18] MEDS: CALCIUM ACETATE 667 MG TABLET PO ×2 (05:30→13:33)
[2020-03-18 06:13] LABS: Hemoglobin 8.4 g/dL (14.0-18.0); Mean Corpuscular HGB Conc 33.6 g/dl (32-36); Mean Corpuscular Hemoglobin 28.9 pg (26-34); Mean Corpuscular Volume 85.9 fl (80-100); Platelet Count Result 178 k/mm3 (150-375); Red Blood Count 2.91 M/mm3 (4.6-6.20); Red Cell Distribution Width 13.5 % (11.5-14.5)
[2020-03-18 06:36] LABS: Albumin Level 3.5 g/dL (3.5-5.1); Anion Gap 14 mmol/L (8-16); Blood Urea Nitrogen 78 mg/dL (9-20); Calcium 6.4 mg/dL (8.4-10.2); Carbon Dioxide 27 mmol/L (22-30); Chloride 84 mmol/L (98-107); Estimated CRCL calculation 10 ml/min; Estimated Glomerular Filt Rate 7; Glucose 90 mg/dL (75-110); Phosphorus 9.7 mg/dL (2.5-4.5); Potassium 3.9 mmol/L (3.4-5.0); Sodium 125 mmol/L (137-145)
--- NOTE | 2020-03-18 08:40 | PC.NURSE ---
Pt to dialysis per bed.
[2020-03-18] MEDS: EPOETIN ALFA-EPBX 10,000 UNITS/ML VIAL 10000 UNITS IV PUSH (09:44)
[2020-03-18] MEDS: SODIUM CHLORIDE 0.9% IV 2,000 ML 999 ML (09:45)
--- NOTE | 2020-03-18 11:07 | PM.PNNEP ---
Progress Note: A&P Assessment and Plan (1) End stage renal disease: Code(s): N18.6 - End stage renal disease Status: Chronic Assessment and Plan: due to progression of advanced kidney disease s/p tunneled HD catheter placement tolerating dialysis treatment in general -- HD today follow electrolytes, volume status, and clearance (2) Uremia: Code(s): N19 - Unspecified kidney failure Status: Acute Assessment and Plan: noted on admission doing better at this time eating and drinking well (3) Hypertension with heart disease: Code(s): I11.9 - Hypertensive heart disease without heart failure Status: Acute Assessment and Plan: doing quite well at this time follow trend of hemodynamics (4) Vitamin D deficiency: Code(s): E55.9 - Vitamin D deficiency, unspecified Status: Acute Assessment and Plan: on weekly ergocalciferol follow calcium and phosphorus (5) UTI (urinary tract infection): Code(s): N39.0 - Urinary tract infection, site not specified Status: Acute Assessment and Plan: urine culture with coag negative Staph on antibiotics (6) Anemia: Code(s): D64.9 - Anemia, unspecified Status: Chronic Assessment and Plan: due to ESRD on Epogen with HD adequate iron store follow trend of H/H Will continue to follow. Subjective Date/time seen: 03/18/20 11:07 Tolerating dialysis at the time of my visit (seen on HD at ~ 10:50AM); no apparent distress voiced; no events overnight or earlier this AM; feels reasonably well. Exam Narrative: Exam Narrative: General: WD/WN male in NAD Heart: normal S1 and S2; no rub Lungs: clear to auscultation Abdomen: soft, nontender, nondistended, positive bowel sounds Extremities: no cyanosis or clubbing; trace edema Skin: warm and intact Objective Data Vital Signs Vital Signs: Vital Signs Temp Pulse Resp BP Pulse Ox 03/18/20 11:00 65 139/81 03/18/20 10:45 66 146/80 H 03/18/20 10:30 64 148/79 H 03/18/20 10:15 67 145/78 H 03/18/20 10:00 66 142/75 H 03/18/20 09:45 71 137/74 03/18/20 09:30 71 132/78 03/18/20 09:15 74 141/78 H 03/18/20 09:00 74 146/83 H 03/18/20 08:55 76 140/82 03/18/20 08:48 36.6 C 77 18 146/86 H 03/18/20 05:21 36.2 C L 78 16 136/76 100 03/17/20 20:34 80 03/17/20 19:28 37.1 C 80 12 135/81 99 03/17/20 16:00 81 03/17/20 14:51 37.2 C 72 16 124/73 98 03/17/20 12:00 74 Intake/Output Intake/Output: Intake & Output 03/15/20 03/16/20 03/17/20 03/18/20 23:59 23:59 23:59 23:59 Intake Total 3166 2390 2430 2970 Output Total 3065 2350 1875 4800 Balance 101 40 555 -1830 Meds/Results Medications: Active Medications Generic Name Dose Route Start Last Admin Trade Name Freq PRN Reason Stop Dose Admin Acetaminophen 500 mg 03/12/20 13:21 Tylenol Tablet PO Q6H PRN Mild Pain (1-3) or Fever Hydrocodone Bitart/Acetaminophen 1 tab 03/12/20 13:21 03/15/20 16:57 Hydrocodone/Acetaminophen (*Crx) 5-325 Mg Tablet PO 1 tab Q4H PRN Administration Pain Rated 4-6 Calcium Acetate 667 mg 03/16/20 11:30 03/18/20 05:30 Calcium Acetate 667 Mg Tablet PO 667 mg TIDAC [facility] Administration Carvedilol 12.5 mg 03/11/20 23:15 03/17/20 20:34 Coreg PO 12.5 mg Q12HR [facility]OM Administration Epoetin Elieser-epbx 10,000 units 03/13/20 09:35 03/18/20 09:44 Epoetin Elieser-Epbx 10,000 Units/Ml Vial IV PUSH 10,000 units TUTHSA [facility] Administration Fentanyl Citrate 25 mcg 03/12/20 10:17 Sublimaze IV PUSH Q2M PRN Pain Ferrous Sulfate 324 mg 03/12/20 08:00 03/17/20 16:54 Ferrous Sulfate PO 324 mg BIDWM [facility] Administration Heparin Sodium (Porcine) 5,000 units 03/12/20 09:00 03/17/20 20:34 Heparin Sodium 5,000 Units/Ml Vial SUB-Q 5,000 units Q12HR TOM Administration
--- NOTE | 2020-03-18 11:51 | PCDIET ---
Nutrition Follow-Up Complete: Inadequate Oral Intake as related to Chest Pain as evidenced by weight loss of 2-13 ibs in the past 3 months and poor po intake reported. Meet estimated nutritional needs Goal: goal met, continue goal Pt current nutrition is Renal Dialysis+Nepro. Nutrition recommendation: Agree Last recorded weight is 74.9 kg (wt up from assessed wt 73.4kg) Bowel Motility: 03/18 Labs Reviewed: PO4 9.7, Ca 6.4, Cr 8.20, GFR 7, Na 125 Meds Noted:Epogen, Phoslo, Zofran, Vitamin D and B Additional Notes: Pt eating well, 100% of all meals, on an appropriate diet, renal dialysis. Pt drinking Nepro for additional protein and kcals to meet needs. We will continue to monitor for adequate intake every five days. Will follow up in 3 days.
[2020-03-18] MEDS: HEPARIN SODIUM 1,000 UNITS/ML VIAL 6000 UNITS (13:19)
[2020-03-18] MEDS: VITAMIN B CMPLX/VIT C/FOLIC AC 1 CAPSULE 1 CAP PO (13:31)
[2020-03-18] MEDS: FERROUS SULFATE 324 MG TABLET PO (13:32)
[2020-03-18] MEDS: SODIUM BICARBONATE TAB 650 MG TABLET PO (13:32)
[2020-03-18] MEDS: CHOLECALCIFEROL 1,000 UNITS TABLET 2000 UNITS PO (13:32)
[2020-03-18] MEDS: hydrALAZINE HCL 50 MG TABLET PO (13:32)
[2020-03-18] MEDS: NIFEdipine 30 MG TAB.ER.24 60 MG PO (13:32)
[2020-03-18] MEDS: HEPARIN SODIUM 5,000 UNITS/ML VIAL 5000 UNITS SUB-Q (13:33)
[2020-03-18] MEDS: carvediloL 12.5 MG TABLET PO (13:33)
--- NOTE | 2020-03-18 15:02 | PM.DS ---
DS: Admitting Diagnosis Admitting Diagnosis Admitting Diagnosis: End-stage renal disease, inadequate venous access DS: Discharge Diagnosis Discharge Diagnosis (1) ESRD (end stage renal disease): Code(s): N18.6 - End stage renal disease Status: Acute Assessment and Plan: Patient is a 55-year-old male with history of chronically in disease with significant elevated BUN and creatinine patient had been seen by professor of biostatistics and had discuss about the dialysis, patient states the last 4 weeks he is having chest pain on and off, now pain was getting progressively worse, he presented emergency department with a chest pain, was found to have elevated BUN of 134 and creatinine of close to 13, patient was seen by Nephrology and have come to an agreement the patient will need emergent dialysis. pt had diaysis 3 rounds, pt will need dialysis permanently, will need dialysis set up as outpatient. Please note pt still has temporary tunnel catheter in situ needs permanent one in the future. 03/17/20 17:19 today patient is feeling much he has had 3 sessions of dialysis and plan was to have another dialysis today and hope to discharge and schedule outpatient dialysis however patient will need permanent catheter for outpatient dialysis, today patient states feeling much denies any chest pain shortness of breath palpitation fever, patient is seen by professor of biostatistics and further recommendation to follow. (2) Elevated troponin: Code(s): R77.8 - Other specified abnormalities of plasma proteins Status: Acute Assessment and Plan: Likely secondary to patient's renal disease and and uncontrolled hypertension. (3) Volume overload: Code(s): E87.70 - Fluid overload, unspecified Status: Acute Assessment and Plan: He may have some component of volume overload related to his kidney disease. (4) Bacteriuria with pyuria: Code(s): R82.71 - Bacteriuria; R82.81 - Pyuria Status: Acute Assessment and Plan: Patient on empiric antibiotic therapy with Rocephin. (5) Erythropoietin deficiency anemia: Code(s): D63.1 - Anemia in chronic kidney disease Status: Acute Assessment and Plan: Pt having blood transfusion on discharge DS: Summary Hospital Course Reason for hospitalization: Chief complaint: Chest pain, shortness of breath Narrative: Audi Rosenthal is a 55 year old male with a past medical history of chronic kidney disease due to chronically uncontrolled hypertension who presented to the ER at [facility] due to shortness of breath and chest pain. The patient reports that he has been progressively more short of breath over the last 4 weeks or so. And then over the last 2 weeks of the patient has begun having chest pain. He reports that chest pain feels as if he has acid washing up his throat and feel similar to his usual GERD symptoms. He reports that his chest pain is frequently accompanied by vomiting. He denies any hematemesis or coffee-ground emesis. Dr. Moses on 03/04/2020 at which time his creatinine had jumped from 7 up to 13. He had an appointment at the professor of biostatistics office on the to discuss starting hemodialysis. The patient reports that over the last month or so he has had no energy whatsoever. He denies any confusion,. Dried is or changes in urinary urgency or frequency. He has not been having any dysuria or hematuria. Nursing staff reported the patient was complaining of flank pain. But instead the patient states that his chest pain sometimes will also be at the bases his posterior back. He denies any CVA tenderness to palpation. He has been having some dizziness with position changes. He also reports generalized myalgias. Hospital Course: Patent with CKD presentd on 03/17 patient was feeling much better he has had 3 sessions of dialysis and plan is to have another dialysis, and hope to discharge tomorrow and schedule outpatient dialy
== END 2020-03-18 15:35 | disposition home or self-care (01) | DRG 673 ==
LOC: ANHIMU 03-13 06:58 → ANH3MED 03-16 20:59 → ANHIMU 03-19 15:52
PROVIDERS: Family Medicine; Internal Medicine Nephrology; Physician Assistant; Surgery; Admitting Provider Internal Medicine; PCP Internal Medicine; Visit Provider Family Medicine
PROC: 0JH63XZ Insertion of Tunneled Vascular Access Device into Chest Subcutaneous Tissue and Fascia, Percutaneous Approach (ICD-10-PCS; CPT 36908; principal; 2020-03-12 11:30)
DX: I13.11 Hypertensive heart and chronic kidney disease without heart failure, with stage 5 chronic kidney disease, or end stage renal disease (principal); N18.6 End stage renal disease; N25.81 Secondary hyperparathyroidism of renal origin; N39.0 Urinary tract infection, site not specified; B95.7 Other staphylococcus as the cause of diseases classified elsewhere; Z99.2 Dependence on renal dialysis; D63.1 Anemia in chronic kidney disease; R77.8 Other specified abnormalities of plasma proteins; E87.70 Fluid overload, unspecified; N20.0 Calculus of kidney; G47.26 Circadian rhythm sleep disorder, shift work type; R07.9 Chest pain, unspecified; N40.0 Benign prostatic hyperplasia without lower urinary tract symptoms; M17.11 Unilateral primary osteoarthritis, right knee; E55.9 Vitamin D deficiency, unspecified; K21.9 Gastro-esophageal reflux disease without esophagitis; Z79.899 Other long term (current) drug therapy; Z85.820 Personal history of malignant melanoma of skin
CPT/HCPCS: 36415; 36430; 74018; 76775; 77001; 80048; 80069; 80074; 81001; 82274; 82306; 82550; 82570; 82607; 82728; 82746; 83540; 83550; 83735; 84100; 84155; 84156; 84165; 84166; 84300; 84443; 84466; 84484; 85014; 85018; 85025; 85027; 85999; 86706; 86850; 86900; 86901; 86923; 87077; 87086; 87088; 87186; 87340; 93005; 93306; 96365; 96372; 96374; A9270; C1750; G0257; G0378; G0379; J0690; J0696; J1644; J2270; J2405; J2704; J3010; J7030; J7040; J7050; P9016; Q5106

== ENCOUNTER 2020-04-11 06:45 | Outpatient (CLI) | payer OTHER, SELFPAY ==
[2020-04-11 07:36] LABS: Hematocrit 25.9 % (42.0-52.0); Hemoglobin 8.4 g/dL (14.0-18.0); Mean Corpuscular HGB Conc 32.4 g/dl (32-36); Mean Corpuscular Hemoglobin 29.5 pg (26-34); Mean Corpuscular Volume 90.9 fl (80-100); Mean Platelet Volume 9.5 fl (7.4-10.4); Platelet Count Result 225 k/mm3 (150-375); Red Blood Count 2.85 M/mm3 (4.6-6.20); Red Cell Distribution Width 14.6 % (11.5-14.5); White Blood Count 7.3 K/mm3 (4.5-10.0)
[2020-04-11 07:50] LABS: Alanine Aminotransferase 17 U/L (4-50); Albumin Level 4.1 g/dL (3.5-5.1); Alkaline Phosphatase 55 U/L (38-126); Anion Gap 17 mmol/L (8-16); Aspartate Amino Transferase 23 U/L (17-59); Bilirubin,Total 0.3 mg/dL (0.2-1.3); Blood Urea Nitrogen 66 mg/dL (9-20); Calcium 8.5 mg/dL (8.4-10.2); Carbon Dioxide 23 mmol/L (22-30); Chloride 101 mmol/L (98-107); Cholesterol 170 mg/dL (0-200); Estimated Glomerular Filt Rate 8; Glucose 102 mg/dL (75-110); HDL Direct 45 mg/dL; Potassium 4.2 mmol/L (3.4-5.0); Sodium 141 mmol/L (137-145); Triglycerides 116 mg/dL (<150)
[2020-04-11 08:01] LABS: LDL Cholesterol Direct 82 mg/dL
[2020-04-11 08:35] LABS: Vitamin D 25 Hydroxy 43.9 ng/mL
== END 2020-04-11 06:46 | disposition home or self-care (01) ==
PROVIDERS: PCP Internal Medicine; Referring Provider Nurse Practitioner; Visit Provider Internal Medicine
DX: E55.9 Vitamin D deficiency, unspecified (principal); N18.9 Chronic kidney disease, unspecified; D63.1 Anemia in chronic kidney disease; N18.6 End stage renal disease; Z79.899 Other long term (current) drug therapy
CPT/HCPCS: 36415; 80053; 80061; 82306; 85027

== ENCOUNTER 2021-04-17 07:28 | Outpatient (CLI) | payer OTHER, SELFPAY ==
[2021-04-17 08:39] LABS: Basophils Absolute Auto 0.1 K/mm3 (0.0-0.1); Basophils Percent Auto 0.8 % (0.2-1.2); Eosinophils Absolute Auto 0.5 K/mm3 (0-0.3); Hematocrit 32.9 % (42.0-52.0); Hemoglobin 10.3 g/dL (14.0-18.0); Immature Granulocyte Absolute 0.01 K/mm3 (0.00-0.031); Immature Granulocyte Percent A 0.2 % (0-0.5); Lymphocytes Absolute Auto 1.07 K/mm3 (0.9-3.2); Lymphocytes Percent Auto 17.7 % (18.3-44.2); Mean Corpuscular HGB Conc 31.3 g/dl (32-36); Mean Corpuscular Hemoglobin 29.1 pg (26-34); Mean Corpuscular Volume 92.9 fl (80-100); Mean Platelet Volume 9.5 fl (7.4-10.4); Monocytes Absolute Auto 0.6 K/mm3 (0.1-0.6); Monocytes Percent Auto 9.3 % (2.6-8.5); Neutrophils Absolute Auto 3.9 K/mm3 (1.3-6.7); Platelet Count Result 212 k/mm3 (150-375); Red Blood Count 3.54 M/mm3 (4.6-6.20); Red Cell Distribution Width 15.1 % (11.5-14.5)
[2021-04-17 08:46] LABS: Cholesterol 113 mg/dL (0-200); HDL Direct 47 mg/dL; Triglycerides 78 mg/dL (<150)
[2021-04-17 08:51] LABS: Alanine Aminotransferase 14 U/L (4-50); Albumin Level 4.5 g/dL (3.5-5.1); Alkaline Phosphatase 86 U/L (38-126); Anion Gap 16 mmol/L (8-16); Aspartate Amino Transferase 17 U/L (17-59); Bilirubin,Total 0.3 mg/dL (0.2-1.3); Blood Urea Nitrogen 74 mg/dL (9-20); Calcium 8.9 mg/dL (8.4-10.2); Carbon Dioxide 19 mmol/L (22-30); Chloride 103 mmol/L (98-107); Estimated Glomerular Filt Rate 6; Glucose 94 mg/dL (65-110); Sodium 138 mmol/L (137-145)
[2021-04-17 08:58] LABS: LDL Cholesterol Direct 37 mg/dL
== END 2021-04-17 07:29 | disposition home or self-care (01) ==
LOC: ANHLAB 07:32
PROVIDERS: PCP Internal Medicine; Visit Provider Nurse Practitioner
DX: N18.5 Chronic kidney disease, stage 5 (principal); D64.9 Anemia, unspecified; I25.10 Atherosclerotic heart disease of native coronary artery without angina pectoris; Z95.1 Presence of aortocoronary bypass graft
CPT/HCPCS: 36415; 80053; 80061; 85025

== ENCOUNTER 2021-04-27 08:30 | Outpatient (RCR) | payer OTHER, SELFPAY ==
[2021-04-21 09:01] VITALS: PULSE 70
--- NOTE | 2021-05-13 15:03 | PCCPR ---
Discharging-Called patient as he has been absent for the past week. He states he didn't have our number. However, he is going to discharge. He is going back to work on the and states he has a lot to get done before that, plus getting dialysis 3x/week.
== END 2021-05-18 08:52 | disposition home or self-care (01) ==
LOC: ANHCPREHAB 08:30
PROVIDERS: PCP Internal Medicine
DX: Z95.1 Presence of aortocoronary bypass graft (principal)
CPT/HCPCS: 93798

== ENCOUNTER 2021-11-23 08:34 | Outpatient (CLI) | payer OTHER, SELFPAY ==
--- NOTE | 2021-11-23 | EST_ITS ---
Patient Info Name: Audi Rosenthal Age: 56 years : 1965 Gender: Male Ht: 72 in Wt: 185 lbs BSA: 2.07 m2 Exam Date: 11/23/2021 9:48 AM Exam Location: [facility] Patient Status: Outpatient Admit Date: 11/23/2021 Staff Ordering Physician: Casie Suazo MD Attending Provider: Casie Suazo MD Exercise Technologist: Fatimah Ruiz RDCS Nurse: ANNE IZAGUIRRE NP Exam Type: CA stress jose luis w NM Study Info Indications R06.09 - Other forms of dyspnea R07.9 - Chest pain, unspecified A regadenoson stress test was performed. Summary 1. No abnormal ST/T wave changes meeting strict criteria for reversible myocardial ischemia with Lexiscan compared to baseline. 2. Hypertensive at baseline. 3. Occasional baseline and stress-induced PVCs. 4. No chest discomfort with stress test. 5. Please correlate with nuclear medicine images, reported separately. Protocol: Lexiscan Stress ECG Details Stage: REST Duration (min): 2 min : 11 sec HR (bpm): 79 SBP (mmHg): 181 DBP (mmHg): 103 Stage: REST Duration (min): 10 min : 16 sec HR (bpm): 79 SBP (mmHg): 181 DBP (mmHg): 103 Stage: STAGE 1 Duration (min): 0 min : 59 sec HR (bpm): 81 SBP (mmHg): 181 DBP (mmHg): 103 Stage: RECOVERY Duration (min): 1 min : 0 sec HR (bpm): 87 SBP (mmHg): 202 DBP (mmHg): 106 Stage: RECOVERY Duration (min): 2 min : 0 sec HR (bpm): 82 SBP (mmHg): 202 DBP (mmHg): 106 Stage: RECOVERY Duration (min): 3 min : 0 sec HR (bpm): 83 SBP (mmHg): 195 DBP (mmHg): 112 Stage: RECOVERY Duration (min): 3 min : 55 sec HR (bpm): 83 SBP (mmHg): 195 DBP (mmHg): 112 Rest HR: 79 bpm Peak HR: 88 bpm Rest Sys BP: 181 mmHg Peak Sys BP: 202 mmHg Max Pred HR: 163 bpm % Max Pred HR: 54 % Target HR: 139 bpm Max RPP: 17,776 bpm*mmHg Termination Reason: Completed protocol Cardiac Symptoms: None Total Time: 1 min : 0 sec Rest Saenz BP: 103 mmHg Peak Saenz BP: 106 mmHg Total Dose: 0.4 mg Resting ECG Normal sinus rhythm, PVCs, inferolateral T-wave abnormality consider ischemia. Stress ECG No abnormal ST/T wave changes meeting strict criteria for reversible myocardial ischemia with Lexiscan compared to baseline. Arrhythmias Occasional baseline and stress-induced PVCs. Report Signatures
--- NOTE | ~2021-11-23 | NM_ITS ---
EXAMINATION: NM jose luis stress w perfusion DATE: 11/23/2021 13:29 INDICATION: Coronary atherosclerosis involving [place] coronary artery of [place] heart. TECHNIQUE: Rest images were obtained following intravenous administration of 10 mCi Tc99m tetrofosmin (Myoview). The patient was infused intravenously with Lexiscan (regadenoson). Then, 31.1 mCi Tc99m t etrofosmin (Myoview) was administered intravenously, and supine and prone stress images were obtained . Data was reconstructed into short axis and horizontal and vertical long axis SPECT images. Gated SP ECT images were also obtained. COMPARISON: Myocardial perfusion imaging 07/20/2016 FINDINGS: There is a large, mild, fixed perfusion defect involving left ventricular apex, apical to m id anterior segments, apical lateral segment, and mid to basal anterolateral segments of left ventric le, consistent with infarct. No reversible component to suggest ischemia. There is global hypokinesi s. Left ventricular ejection fraction measures 37%. IMPRESSION: 1. Large area of mild infarct involving left ventricular apex, apical to mid anterior segments, apica l lateral segment, and mid to basal anterolateral segments. 2. Global hypokinesis with left ventricular ejection fraction measuring 37%. Reviewed, dictated and finalized at location A. IMPRESSION: 1. Large area of mild infarct involving left ventricular apex, apical to mid an terior segments, apical lateral segment, and mid to basal anterolateral segment s. 2. Global hypokinesis with left ventricular ejection fraction measuring 37%.
== END 2021-11-23 08:35 | disposition home or self-care (01) ==
PROVIDERS: PCP Internal Medicine
DX: I25.10 Atherosclerotic heart disease of native coronary artery without angina pectoris (principal); Z95.1 Presence of aortocoronary bypass graft; R07.9 Chest pain, unspecified; R06.9 Unspecified abnormalities of breathing; I21.9 Acute myocardial infarction, unspecified
CPT/HCPCS: 78452; 93017; A9502; J2785

== ENCOUNTER 2021-11-30 08:10 | Emergency (ER) | payer OTHER, SELFPAY ==
--- NOTE | ~2021-11-30 | XR_ITS ---
XR foot RT min 3V DATE: 11/30/2021 08:59 INDICATION: Posterior foot pain for 3 days. Glass removed 1 week ago TECHNIQUE: 4 views COMPARISON: None FINDINGS: Mild osteoarthritis at the first metatarsophalangeal joint. Mild plantar calcaneal enthesopathy. Mild chronic calcification posterior to the calcaneus. Posterior tibial artery calcification. Some metatarsal artery calcification is noted. No radiopaque soft tissue foreign body or subcutaneous emphysema is evident. No fracture, dislocation , periosteal reaction or bone destruction. IMPRESSION: No radiopaque soft tissue foreign body is detected Procedure tibial and metatarsal artery calcifications Mild plantar calcaneal enthesopathy Reviewed, dictated and finalized at location B.
[2021-11-30 08:24] VITALS: BP 175/93; PULSE 76; RESP 20; TEMP 37.5; O2SAT 98
--- NOTE | 2021-11-30 08:54 | ED.GENADULT ---
HPI - General Adult General Chief complaint: Wound/Laceration Stated complaint: Right Ankle Injury Source: patient, RN notes reviewed and old records reviewed Mode of arrival: ambulatory Limitations: no limitations History of Present Illness HPI narrative: 56 year old male who presents to express care with complaints of stepping on small piece of glass 5 days ago to the bottom heel area of his right foot, reports that he removed piece of glass. Patient states that next morning he has been experiencing pain when he applies pressure to his foot especially when he first arises, reports that it doesn't seem to be worse as he continues to walk on his foot.. No redness to heel area or any raised tissue or evidence of foreign body.no acute palpable tenderness to area where patient states glass was removed with no redness. Patient is on dialyses treatment 3X weekly. MD complaint: right heel pain Onset (ago): day(s) (5) Location: lower extremity (right heel) Related Data Home Medications Medication Instructions Recorded Confirmed aspirin 81 mg tablet,delayed 81 mg PO DAILY 03/05/21 11/30/21 release (Adult Aspirin Regimen) melatonin 3 mg capsule 3 mg PO QHS 03/05/21 11/30/21 pantoprazole 40 mg tablet,delayed 40 mg PO QAM 03/05/21 11/30/21 release metoprolol tartrate 50 mg tablet 50 mg PO BID 04/21/21 11/30/21 sucroferric oxyhydroxide 500 mg 500 mg PO TID 04/21/21 11/30/21 chewable tablet (Velphoro) calcium acetate(phosphat bind) 667 1 cap PO DAILY 11/30/21 11/30/21 mg capsule furosemide 20 mg tablet 20 mg PO DAILY 11/30/21 11/30/21 lidocaine-prilocaine 2.5 %-2.5 % 1 applic topical DAILY 11/30/21 11/30/21 topical cream lisinopril 20 mg tablet 1 tablet PO DAILY 11/30/21 11/30/21 metoprolol succinate 100 mg 1 tablet PO DAILY 11/30/21 11/30/21 tablet,extended release 24 hr nitroglycerin 0.4 mg sublingual 1 tablet sublingual PRN PRN Chest 11/30/21 11/30/21 tablet Pain rosuvastatin 40 mg tablet 1 tablet PO DAILY 11/30/21 11/30/21 Allergies Allergy/AdvReac Type Severity Reaction Status Date / Time Bumble Bee Allergy Severe hives Uncoded 11/30/21 08:36 Review of Systems Review of Systems: CONSTITUTIONAL: Denies fever, chills, or sweats. EYES: Denies visual changes, redness, or discharge. ENT: Denies rhinorrhea, congestion, sore throat, or otalgia. CARDIOVASCULAR: Denies chest pain, palpitations, or edema. RESPIRATORY: Denies cough or dyspnea. GASTROINTESTINAL: Denies abdominal pain, nausea, vomiting, or diarrhea. GENITOURINARY: Denies dysuria or hematuria. SKIN: Denies rash or itching. MUSCULOSKELETAL: Denies back pain, joint pain, or myalgia.positive for right heel pain NEUROLOGIC: Denies headache, numbness, or weakness. PSYCHIATRIC: Denies anxiety or depression. All systems reviewed & are unremarkable except as noted in HPI and below PMFSH Past Medical History Medical History Acute kidney failure, unspecified BPH (benign prostatic hyperplasia) Chest pain Chronic kidney disease, stage 5 Erythropoietin deficiency anemia Essential hypertension Gastroesophageal reflux disease History of shingles Hyperparathyroidism due to renal insufficiency Nephrolithiasis Osteoarthritis of right knee Shift work sleep disorder Vitamin D deficiency Surgical History Surgical History History of melanoma excision S/P cystoscopy with ureteral stent placement Family History Family History Sibling Diabetes mellitus Mother Family history of arthritis Father Family history unknown Social History Social History Social History: He lives in [place] with his of over 25 years. They do not have any children. He is employed at a [employer]. Primary care physician: Dr. Roney George Code status: Full co
[2021-11-30 09:00] VITALS: BP 175/93; PULSE 76; RESP 20; TEMP 37.5; O2SAT 98
== END 2021-11-30 09:50 | disposition home or self-care (01) ==
PROVIDERS: Emergency Provider Registered Nurse
DX: M79.671 Pain in right foot (principal); M77.8 Other enthesopathies, not elsewhere classified; Z87.891 Personal history of nicotine dependence; I12.0 Hypertensive chronic kidney disease with stage 5 chronic kidney disease or end stage renal disease; N18.5 Chronic kidney disease, stage 5; Z99.2 Dependence on renal dialysis; N40.0 Benign prostatic hyperplasia without lower urinary tract symptoms; K21.9 Gastro-esophageal reflux disease without esophagitis; E21.3 Hyperparathyroidism, unspecified
CPT/HCPCS: 73630; 99213; G0463

== ENCOUNTER 2021-11-30 12:23 | Outpatient (CLI) | payer OTHER, SELFPAY ==
--- NOTE | 2021-11-30 16:09 | WPDPFTINT ---
PFT Procedure Performed PFT Procedure Performed Spirometry with Pre/Post Bronchodilator Plethysmography (Lung Vol) Diffusing Cap (DLCO) Flow Vol Loop PFT Interpretation This is a pulmonary function test with pre and post-bronchodilator spirometry, plethysmography and diffusing capacity. The test was performed and results interpreted in accordance with the 2019 and 2005 ATS/ERS Task Force guidelines respectively using the Global Lung Function Initiative-2012 reference equations. Patient demonstrated good effort and cooperation. Reproducibility criteria were met. The quality of the pre bronchodilator spirometry maneuver was Grade A and post bronchodilator spirometry maneuver was Grade A. Findings: Spirometry: There is decreased maximal expiratory airflow at low lung volumes with concave expiratory flow tracing. The pre bronchodilator FVC is 2.81 L, 55% predicted. The pre bronchodilator FEV1 is 1.93 L, 49% predicted. The pre bronchodilator FEV1: FVC ratio 69%. The post bronchodilator FVC is 2.90 L, representing a 3% increase. The post bronchodilator FEV1 is 2.10 L, representing a 9% increase. The post bronchodilator FEV1: FVC ratio 72%. Plethysmography: The total lung capacity is 4.53 L, at 61% predicted. The functional residual capacity is 2.38 L, 62% predicted. The residual volume is 1.72 L, 75% predicted. Diffusing capacity: The diffusing capacity unadjusted for hemoglobin and carboxyhemoglobin is 19.2, 64% predicted. Diffusing capacity adjusted for alveolar volume is 3.47, 82% predicted. Impression: There is a combined obstructive and restrictive ventilatory abnormality. There are no guidelines to assign the severity of obstruction and restriction with a combined abnormality. In my opinion, given the mildly concave expiratory flow tracing and mildly decreased FEV1: FVC ratio and moderate restrictive abnormality I would state there is a mild obstructive abnormality and a moderate restrictive abnormality resulting in a severely decreased FEV1. There is no significant improvement after inhaling a single dose of albuterol. The diffusing capacity unadjusted for hemoglobin and carboxyhemoglobin is mildly decreased and normalizes when adjusted for alveolar volume. There are no prior studies for comparison
== END 2021-11-30 12:24 | disposition home or self-care (01) ==
LOC: ANHPFT 12:28
PROVIDERS: PCP Internal Medicine
DX: R07.9 Chest pain, unspecified (principal); R06.09 Other forms of dyspnea; R94.2 Abnormal results of pulmonary function studies
CPT/HCPCS: 94060; 94726; 94729

== ENCOUNTER 2021-12-09 08:49 | Outpatient (CLI) | payer OTHER, SELFPAY ==
[2021-12-09 09:35] LABS: Alanine Aminotransferase 14 U/L (6-50); Albumin Level 4.3 g/dL (3.5-5.1); Alkaline Phosphatase 70 U/L (38-126); Anion Gap 13 mmol/L (8-16); Aspartate Amino Transferase 15 U/L (17-59); Bilirubin,Total 0.4 mg/dL (0.2-1.3); Blood Urea Nitrogen 57 mg/dL (9-20); Calcium 8.8 mg/dL (8.4-10.2); Carbon Dioxide 24 mmol/L (22-30); Chloride 100 mmol/L (98-107); Cholesterol 92 mg/dL (0-200); Estimated Glomerular Filt Rate 6; Glucose 92 mg/dL (65-110); HDL Direct 47 mg/dL; Potassium 5.1 mmol/L (3.4-5.0); Sodium 137 mmol/L (137-145); Triglycerides 48 mg/dL (<150)
[2021-12-09 09:47] LABS: LDL Cholesterol Direct < 30 mg/dL
[2021-12-09 09:58] LABS: Vitamin D 25 Hydroxy 73.7 ng/mL
[2021-12-09 10:06] LABS: Prostate Specific Antigen 0.5 ng/mL (< OR = 4.0)
== END 2021-12-09 08:50 | disposition home or self-care (01) ==
LOC: ANHLAB 08:51
PROVIDERS: Visit Provider Internal Medicine
DX: Z12.5 Encounter for screening for malignant neoplasm of prostate (principal); E55.9 Vitamin D deficiency, unspecified; I11.9 Hypertensive heart disease without heart failure; Z51.81 Encounter for therapeutic drug level monitoring; Z79.899 Other long term (current) drug therapy; E78.5 Hyperlipidemia, unspecified
CPT/HCPCS: 36415; 80053; 80061; 82306; 84153; G0103

== ENCOUNTER 2022-03-28 08:16 | Emergency (ER) | payer OTHER, SELFPAY ==
[2022-03-28] VITALS (19 sets, daily range): BP systolic 150–205; BP diastolic 87–131; PULSE 78–84; RESP 16–25; O2SAT 90–100
--- NOTE | ~2022-03-28 | XR_ITS ---
EXAMINATION: XR chest 2V DATE: 03/28/2022 12:35 INDICATION: 3 days of cough and left-sided rib pain. TECHNIQUE: PA and lateral views of the chest were obtained. COMPARISON: Chest radiograph dated 03/12/2020 FINDINGS: Small bilateral pleural effusions, left greater than right. Additional opacities in the left lower jules ng zone which could represent atelectasis or pneumonia. No pneumothorax. Mild cardiomegaly. New media l sternotomy wires and mediastinal surgical clips are seen, likely from prior coronary artery bypass grafting. There has also been interval left atrial appendage clipping. IMPRESSION: 1. Opacity left lower lung zone which could represent atelectasis or pneumonia. 2. Small bilateral pleural effusions, left greater than right. 3. Moderate cardiomegaly with change of interval coronary artery bypass grafting and left atrial appe ndage clipping. Reviewed, dictated and finalized at location A. IMPRESSION: 1. Opacity left lower lung zone which could represent atelectasis or pneumonia. 2. Small bilateral pleural effusions, left greater than right. 3. Moderate cardiomegaly with change of interval coronary artery bypass graftin g and left atrial appendage clipping.
--- NOTE | 2022-03-28 12:45 | ED.URI ---
HPI - URI/Sore Throat General Chief Complaint: Upper Respiratory Infection Stated Complaint: URI Time Seen by Provider: 03/28/22 12:13 History of Present Illness HPI Narrative: Patient is a 57-year-old male with a history of CKD, CAD status post CABG here for evaluation of cough for the past 4 days. Cough is productive in nature of green sputum. He denies sick contacts. He is attempted Mucinex and NyQuil without significant relief of his symptoms. No fevers, chills, shortness of breath, chest pain, nausea, vomiting, leg swelling or orthopnea. Presents to the ED today because of a soreness around his right lower ribs that is worse with cough. He has not tested himself for COVID. Related Data Home Medications Medication Instructions Recorded Confirmed aspirin 81 mg tablet,delayed 81 mg PO DAILY 03/05/21 02/16/22 release (Adult Aspirin Regimen) melatonin 3 mg capsule 3 mg PO QHS 03/05/21 02/16/22 pantoprazole 40 mg tablet,delayed 40 mg PO QAM 03/05/21 02/16/22 release sucroferric oxyhydroxide 500 mg 500 mg PO TID 04/21/21 02/16/22 chewable tablet (Velphoro) calcium acetate(phosphat bind) 667 1 cap PO DAILY 11/30/21 02/16/22 mg capsule furosemide 20 mg tablet 20 mg PO DAILY 11/30/21 02/16/22 lidocaine-prilocaine 2.5 %-2.5 % 1 applic topical DAILY 11/30/21 02/16/22 topical cream lisinopril 20 mg tablet 1 tablet PO DAILY 11/30/21 02/16/22 metoprolol succinate 100 mg 1 tablet PO DAILY 11/30/21 02/16/22 tablet,extended release 24 hr nitroglycerin 0.4 mg sublingual 1 tablet sublingual PRN PRN Chest 11/30/21 02/16/22 tablet Pain rosuvastatin 40 mg tablet 1 tablet PO DAILY 11/30/21 02/16/22 albuterol sulfate 90 mcg/actuation 1 puff inhalation Q4H PRN Dyspnea 12/09/21 02/16/22 aerosol inhaler hydralazine 100 mg tablet mg 03/28/22 Allergies Allergy/AdvReac Type Severity Reaction Status Date / Time Bumble Bee Allergy Severe hives Uncoded 03/28/22 08:35 Review of Systems Review of Systems: Gen: Denies fevers or chills Eyes: Denies eye pain or visual change ENT: Denies congestion Respiratory: Reports cough. Denies shortness of breath CV: Denies chest pain or palpitations GI: Denies abdominal pain nausea, emesis or diarrhea denies burning, urgency, frequency or hematuria Musculoskeletal: Reports pain around his right ribs. Denies back pain or muscle pain Neuro: Denies numbness, tingling, weakness or focal weakness Skin: Denies rash Except as documented, all other systems reviewed and negative [facility] Past Medical History Medical History Acute kidney failure, unspecified BPH (benign prostatic hyperplasia) Chest pain Chronic kidney disease, stage 5 Erythropoietin deficiency anemia Essential hypertension Gastroesophageal reflux disease History of shingles Hyperparathyroidism due to renal insufficiency Nephrolithiasis Osteoarthritis of right knee Shift work sleep disorder Vitamin D deficiency Surgical History Surgical History History of melanoma excision S/P cystoscopy with ureteral stent placement Family History Family History Sibling Diabetes mellitus Mother Family history of arthritis Father Family history unknown Social History Social History Social History: He lives in [place] with his of over 25 years. They do not have any children. He is employed at a [employer]. Primary care physician: Dr. Roney George Code status: Full code Surrogate decision maker: Ne () Smoking status: Former smoker Tobacco type: cigars Second hand tobacco smoke exposure: No Alcohol intake: current Alcohol use details: He drinks only in small amounts in moderation. He has not had any alcohol in quite some time. Substance use: never Substance
[2022-03-28] MEDS: BENZONATATE 100 MG CAPSULE PO (12:51)
[2022-03-28 13:33] LABS: Basophils Absolute Auto 0.1 K/mm3 (0.0-0.1); Eosinophils Absolute Auto 0.4 K/mm3 (0-0.3); Eosinophils Percent Auto 5.2 % (0-4.4); Hematocrit 30.8 % (42.0-52.0); Hemoglobin 9.3 g/dL (14.0-18.0); Immature Granulocyte Absolute 0.05 K/mm3 (0.00-0.031); Immature Granulocyte Percent A 0.6 % (0-0.5); Lymphocytes Absolute Auto 0.88 K/mm3 (0.9-3.2); Lymphocytes Percent Auto 11.1 % (18.3-44.2); Mean Corpuscular HGB Conc 30.2 g/dl (32-36); Mean Corpuscular Hemoglobin 27.7 pg (26-34); Mean Corpuscular Volume 91.7 fl (80-100); Mean Platelet Volume 9.2 fl (7.4-10.4); Monocytes Absolute Auto 0.7 K/mm3 (0.1-0.6); Monocytes Percent Auto 8.2 % (2.6-8.5); Neutrophils Absolute Auto 5.9 K/mm3 (1.3-6.7); Neutrophils Percent Auto 73.9 % (45.5-73.1); Platelet Count Result 229 k/mm3 (150-375); Red Blood Count 3.36 M/mm3 (4.6-6.20); Red Cell Distribution Width 17.2 % (11.5-14.5); White Blood Count 7.9 K/mm3 (4.5-10.0)
[2022-03-28 13:34] LABS: Influenza A QL RT-PCR Negative (Negative); Influenza B QL RT-PCR Negative (Negative); SARS-CoV-2 RNA PCR Negative
[2022-03-28 13:43] LABS: Alanine Aminotransferase 20 U/L (6-50); Albumin Level 4.1 g/dL (3.5-5.1); Alkaline Phosphatase 71 U/L (38-126); Anion Gap 20 mmol/L (8-16); Aspartate Amino Transferase 25 U/L (17-59); Bilirubin,Total 0.7 mg/dL (0.2-1.3); Blood Urea Nitrogen 61 mg/dL (9-20); Carbon Dioxide 24 mmol/L (22-30); Chloride 94 mmol/L (98-107); Estimated CRCL calculation 11 ml/min; Estimated Glomerular Filt Rate 8; Glucose 95 mg/dL (65-110); Potassium 4.9 mmol/L (3.4-5.0); Sodium 138 mmol/L (137-145)
== END 2022-03-28 14:35 | disposition home or self-care (01) ==
PROVIDERS: Physician Assistant; Emergency Provider Emergency Medicine; PCP Internal Medicine
DX: J18.9 Pneumonia, unspecified organism (principal); Z20.822 Contact with and (suspected) exposure to COVID-19; I25.10 Atherosclerotic heart disease of native coronary artery without angina pectoris; I12.0 Hypertensive chronic kidney disease with stage 5 chronic kidney disease or end stage renal disease; D63.1 Anemia in chronic kidney disease; N18.5 Chronic kidney disease, stage 5; N40.0 Benign prostatic hyperplasia without lower urinary tract symptoms; K21.9 Gastro-esophageal reflux disease without esophagitis; N25.81 Secondary hyperparathyroidism of renal origin; M17.11 Unilateral primary osteoarthritis, right knee; E55.9 Vitamin D deficiency, unspecified; Z95.1 Presence of aortocoronary bypass graft; Z87.442 Personal history of urinary calculi; Z85.820 Personal history of malignant melanoma of skin; Z96.0 Presence of urogenital implants; Z87.891 Personal history of nicotine dependence
CPT/HCPCS: 36415; 71046; 80053; 85025; 87502; 99283; A9270; C9803; U0003; U0005

== ENCOUNTER 2022-04-06 07:51 | Outpatient (CLI) | payer OTHER, SELFPAY ==
[2022-04-06 09:32] LABS: Vitamin D 25 Hydroxy 74.6 ng/mL
[2022-04-09 08:49] LABS: Methylmalonic Acid 733 nmol/L (87-318)
[2022-04-10 05:09] LABS: Red Blood Cell Folate >1000 ng/mL RBC (>280)
== END 2022-04-06 07:52 | disposition home or self-care (01) ==
LOC: ANHLAB 07:58
PROVIDERS: PCP Internal Medicine
DX: R53.82 Chronic fatigue, unspecified (principal); G47.33 Obstructive sleep apnea (adult) (pediatric); N18.6 End stage renal disease; D63.1 Anemia in chronic kidney disease; Z99.2 Dependence on renal dialysis
CPT/HCPCS: 36415; 82306; 82747; 83921; 84443

== ENCOUNTER 2022-05-29 08:04 | Observation (INO) | payer OTHER, SELFPAY ==
[2022-05-29] VITALS (10 sets, daily range): BP systolic 141–178; BP diastolic 87–118; PULSE 88–101; RESP 12–23; TEMP 36.5–38.2; O2SAT 92–97; BMI 25.1
--- NOTE | ~2022-05-29 | US_ITS ---
EXAMINATION: US venous doppler LE RT DATE: 05/31/2022 15:34 INDICATION: edmea following knee replacement . TECHNIQUE: Grayscale images without and with compression and Doppler images of the right lower extrem ity veins were obtained. COMPARISON: None FINDINGS: The right common femoral vein, profunda (deep) femoral vein, femoral vein, popliteal vein, peroneal v ein, posterior tibial veins, gastrocnemius vein, and greater saphenous vein are patent. IMPRESSION: 1. Patent right lower extremity veins. No evidence of deep venous thrombosis. Reviewed, dictated and finalized at location K. CAL SCREENER
--- NOTE | ~2022-05-29 | XR_ITS ---
EXAMINATION: XR chest 2V DATE: 05/29/2022 08:52 INDICATION: Shortness of breath TECHNIQUE: frontal view of the chest was obtained. COMPARISON: Chest radiograph dated 03/28/2022 FINDINGS: Interstitial and airspace opacities in the bilateral mid and lower lung zones. Small bilateral pleura l effusions. No pneumothorax. Cardiomegaly. Median sternotomy wires and mediastinal surgical clips ar e seen, likely from prior coronary artery bypass grafting and likely left atrial appendage clipping. IMPRESSION: 1. Opacities in bilateral mid and lower lung zones which could represent pulmonary edema, pneumonia, atelectasis or some combination thereof. 2. Small bilateral pleural effusions. 3. Cardiomegaly. Reviewed, dictated and finalized at location A. BLE BULKHEAD INSTALLER IMPRESSION: 1. Opacities in bilateral mid and lower lung zones which could represent pulmon charleen edema, pneumonia, atelectasis or some combination thereof. 2. Small bilateral pleural effusions. 3. Cardiomegaly.
--- NOTE | 2022-05-29 08:33 | ECG_ITS ---
Measurements Intervals [place] Rate: 98 P: 45 UT: 160 QRS: 32 QRSD: 108 T: 63 QT: 366 QTc: 469 Interpretive Statements SINUS RHYTHM POSSIBLE LEFT ATRIAL ENLARGEMENT NONSPECIFIC T-WAVE ABNORMALITY BORDERLINE ECG COMPARED TO ECG 03/11/2020 22:00:32 NO SIGNIFICANT CHANGE Electronically Signed On 05-29-2022 13:38:02 DIGITAL ANALYST by Daniel Del Real M.D.
[2022-05-29 09:05] LABS: Basophils Absolute Auto 0.1 K/mm3 (0.0-0.1); Basophils Percent Auto 1.2 % (0.2-1.2); Eosinophils Absolute Auto 0.1 K/mm3 (0-0.3); Eosinophils Percent Auto 1.8 % (0-4.4); Hematocrit 31.5 % (42.0-52.0); Hemoglobin 9.3 g/dL (14.0-18.0); Immature Granulocyte Absolute 0.02 K/mm3 (0.00-0.031); Immature Granulocyte Percent A 0.4 % (0-0.5); Lymphocytes Absolute Auto 0.36 K/mm3 (0.9-3.2); Lymphocytes Percent Auto 7.2 % (18.3-44.2); Mean Corpuscular HGB Conc 29.5 g/dl (32-36); Mean Corpuscular Hemoglobin 26.2 pg (26-34); Mean Corpuscular Volume 88.7 fl (80-100); Mean Platelet Volume 9.8 fl (7.4-10.4); Monocytes Absolute Auto 0.5 K/mm3 (0.1-0.6); Monocytes Percent Auto 9.5 % (2.6-8.5); Neutrophils Percent Auto 79.9 % (45.5-73.1); Platelet Count Result 189 k/mm3 (150-375); Red Blood Count 3.55 M/mm3 (4.6-6.20); Red Cell Distribution Width 17.9 % (11.5-14.5)
[2022-05-29 09:20] LABS: Alanine Aminotransferase 17 U/L (6-50); Albumin Level 4.4 g/dL (3.5-5.1); Alkaline Phosphatase 62 U/L (38-126); Anion Gap 8 mmol/L (8-16); Aspartate Amino Transferase 24 U/L (17-59); Bilirubin,Total 0.7 mg/dL (0.2-1.3); Blood Urea Nitrogen 28 mg/dL (9-20); Calcium 8.6 mg/dL (8.4-10.2); Carbon Dioxide 31 mmol/L (22-30); Chloride 97 mmol/L (98-107); Estimated CRCL calculation 15 ml/min; Estimated Glomerular Filt Rate 11; Glucose 108 mg/dL (65-110); Lipase 128 U/L (23-300); Potassium 4.1 mmol/L (3.4-5.0); Sodium 136 mmol/L (137-145)
[2022-05-29 09:28] LABS: Troponin I 0.032 ng/mL (0.000-0.034)
--- NOTE | 2022-05-29 09:31 | ED.NAVMDI ---
HPI - Nausea/Vomiting/Diarrhea General Chief complaint: Nausea/Vomiting/Diarrhea Stated complaint: nausea, vomiting, sob Time Seen by Provider: 05/29/22 08:38 History of Present Illness HPI Narrative: Patient is a 57-year-old male with a history of CKD on dialysis Tuesday, CAD status post CABG, hypertension presenting with vomiting. Patient states that he became nauseated last night and started throwing up around midnight. States he has had multiple episodes overnight with the last being several hours ago. Currently he states that he is no longer nauseated. States that he was diagnosed with pneumonia several months ago and he still has a cough. States that he had dialysis yesterday but they did not remove any fluid. He denies any pain. No headache, chest pain, abdominal pain, dysuria. States that he does still make urine. He denies recent dysuria or hematuria. States he has had multiple episodes of diarrhea lately. Related Data Home Medications Medication Instructions Recorded Confirmed aspirin 81 mg tablet,delayed 81 mg PO DAILY 03/05/21 05/29/22 release (Adult Aspirin Regimen) melatonin 3 mg capsule 3 mg PO QHS 03/05/21 05/29/22 pantoprazole 40 mg tablet,delayed 40 mg PO QAM 03/05/21 05/29/22 release sucroferric oxyhydroxide 500 mg 500 mg PO TID 04/21/21 05/29/22 chewable tablet (Velphoro) calcium acetate(phosphat bind) 667 1 cap PO DAILY 11/30/21 05/29/22 mg capsule furosemide 20 mg tablet 20 mg PO DAILY 11/30/21 05/29/22 lisinopril 20 mg tablet 1 tablet PO DAILY 11/30/21 05/29/22 metoprolol succinate 100 mg 1 tablet PO DAILY 11/30/21 05/29/22 tablet,extended release 24 hr nitroglycerin 0.4 mg sublingual 1 tablet sublingual PRN PRN Chest 11/30/21 05/29/22 tablet Pain rosuvastatin 40 mg tablet 1 tablet PO DAILY 11/30/21 05/29/22 albuterol sulfate 90 mcg/actuation 1 puff inhalation Q4H PRN Dyspnea 12/09/21 05/29/22 aerosol inhaler hydralazine 100 mg tablet 100 mg PO BID 03/28/22 05/29/22 cholecalciferol (vitamin D3) 100 100 mcg PO TIDWMEAL 05/30/22 05/30/22 mcg (4,000 unit) capsule Allergies Allergy/AdvReac Type Severity Reaction Status Date / Time Bumble Bee Allergy Severe hives Uncoded 05/29/22 09:40 Review of Systems Review of Systems: All systems reviewed & are unremarkable except as noted in HPI and below PMFSH Past Medical History Medical History Benign prostatic hyperplasia Chest pain End-stage renal disease on hemodialysis Erythropoietin deficiency anemia Essential hypertension Gastroesophageal reflux disease Heart failure with reduced ejection fraction History of shingles Hyperparathyroidism due to renal insufficiency Nephrolithiasis Osteoarthritis of right knee Shift work sleep disorder Vitamin D deficiency Surgical History Surgical History History of cardiac catheterization History of cystoscopy History of four vessel coronary artery bypass graft (02/2021) SMITH to LAD, SVG to PDA, OM 1, OM 2. History of melanoma excision (2004) Right neck. History of ureter stent Status post creation of arteriovenous fistula (05/2020) Family History Family History Sibling Diabetes mellitus Mother Family history of arthritis Father Family history unknown Social History Social History (Updated 05/29/22 @ 20:09 by Sue Mack PA-C) Social History: Surrogate medical decision maker: Jennie Chau, significant other. Code status: Full code. Smoking status: Former smoker Tobacco type: cigars Second hand tobacco smoke exposure: No Additional smoking assessment comments: SMOKED CIGARS Alcohol intake: former Alcohol use details: He drinks only in small amounts in moderation. He has not had any alcohol in quite some time. Substance use: never Substance use type: does not u
[2022-05-29 09:37] LABS: Anisocytosis 1+ (NORMAL); Hypochromasia 1+ (NORMAL); Platelet Estimate Adequate (Adequate)
[2022-05-29 09:41] LABS: Influenza A QL RT-PCR Negative (Negative); Influenza B QL RT-PCR Negative (Negative); SARS-CoV-2 RNA PCR Positive; Schistocytes None Seen (NORMAL)
[2022-05-29 10:43] LABS: RBC Urine 0-2 /hpf (0-2); Squamous Epithelial Cell Urine Rare /hpf (Few); WBC Urine 0-3 /hpf
[2022-05-29 10:46] LABS: Add Urine Microscopic? YES; Appearance Urine Clear (Clear); Bilirubin Urine Negative (Negative); Blood Urine Trace-Intact (Negative); Color Urine Light Yellow (Yellow); Glucose Urine UA 1+ mg/dL (Negative); Ketones Urine Negative (Negative); Leukocyte Esterase Ur Negative LEU/UL (Negative); Nitrate Urine Negative (Negative); Protein Urine 2+ mg/dL (Negative); Specific Grav Ur 1.015 (1.001-1.035); Urobilinogen Urine 0.2 mg/dL (<2.0); pH Urine 8.5 (5.0-9.0)
--- NOTE | 2022-05-29 13:45 | PM.IMHP ---
H&P: HPI History of Present Illness Date/Time: 05/29/22 13:45 Chief Complaint: Nausea and vomiting. Narrative: This is a very pleasant 57-year-old male with end-stage renal disease on hemodialysis, chronic anemia, coronary artery disease, heart failure with reduced ejection fraction, hypertension, hyperlipidemia, and benign prostatic hyperplasia who presented to the emergency department for evaluation of nausea and vomiting. Around midnight he developed nausea and reports having multiple episodes of emesis over a several hour period of time though he has not vomited since arrival to the ER this morning. He was also complaining of some shortness of breath in addition to a cough however he has had a dry, lingering cough since he had pneumonia in March. He tested positive for COVID in the ED today and chest x-ray showed opacities in bilateral mid and lower lung zones which could represent pulmonary edema, pneumonia, atelectasis, or some combination there. He has some swelling in his right leg which has been present since his knee was replaced in February but that is unchanged. He completed a full dialysis session yesterday but had no fluid removed. He has no known sick contacts. He denies chest pain, pleuritic pain, orthopnea, and paroxysmal nocturnal dyspnea. He has not had fever, chills, or sweats. No sinus congestion or sore throat. He has had some loose stools but that is not necessarily unusual for him. In the ED he had several SpO2 readings in the high 80s on room air and he is being admitted in this setting. At the time my evaluation he reports feeling just fine and he has no complaints. Review of Systems Review of Systems: Twelve systems were reviewed and are negative except for as per HPI. [facility] Past Medical History Medical History Benign prostatic hyperplasia Chest pain End-stage renal disease on hemodialysis Erythropoietin deficiency anemia Essential hypertension Gastroesophageal reflux disease Heart failure with reduced ejection fraction History of shingles Hyperparathyroidism due to renal insufficiency Nephrolithiasis Osteoarthritis of right knee Shift work sleep disorder Vitamin D deficiency Surgical History Surgical History History of cardiac catheterization History of cystoscopy History of four vessel coronary artery bypass graft (02/2021) SMITH to LAD, SVG to PDA, OM 1, OM 2. History of melanoma excision (2004) Right neck. History of ureter stent Status post creation of arteriovenous fistula (05/2020) Family History Family History Sibling Diabetes mellitus Mother Family history of arthritis Father Family history unknown Social History Social History (Updated 05/29/22 @ 20:09 by Sue Mack PA-C) Social History: Surrogate medical decision maker: Jennie Chau, significant other. Code status: Full code. Smoking status: Former smoker Tobacco type: cigars Second hand tobacco smoke exposure: No Additional smoking assessment comments: SMOKED CIGARS Alcohol intake: former Alcohol use details: He drinks only in small amounts in moderation. He has not had any alcohol in quite some time. Substance use: never Substance use type: does not use Lack of Transportation: No Lack of Food: Never True Current Housing: I Have Housing Concerned About Future Housing: No Difficulty Paying Gas/Electric Bills: No Difficulty Paying for Meds: No Currently Unemployed: No Education: High School Diploma/GED Difficulty w/ Childcare or Family Care: No Additional living arrangements comments: Lives in [place]. Additional occupation/education comments: [employer]. Spiritual care concerns: No Meds Home Medications and Allergies Home Medications Medication Instructions Recorded Confirmed Type vi
[2022-05-29 21:34] LABS: Estimated CRCL calculation 13 ml/min; Estimated Glomerular Filt Rate 9
[2022-05-29] MEDS: CALCIUM ACETATE 667 MG TABLET PO (23:51)
[2022-05-29] MEDS: hydrALAZINE HCL 50 MG TABLET 100 MG PO (23:52)
[2022-05-29] MEDS: METOPROLOL SUCCINATE EXT REL 100 MG TABCR PO (23:52)
[2022-05-29] MEDS: MELATONIN 3 MG TABLET PO (23:53)
[2022-05-29] MEDS: lisinopriL 20 MG TABLET PO (23:54)
[2022-05-30] VITALS (9 sets, daily range): BP systolic 129–154; BP diastolic 79–87; PULSE 69–85; RESP 16–18; TEMP 36.2–37.2; O2SAT 97–98
[2022-05-30 07:09] LABS: Hematocrit 29.3 % (42.0-52.0); Hemoglobin 8.7 g/dL (14.0-18.0); Mean Corpuscular HGB Conc 29.7 g/dl (32-36); Mean Corpuscular Hemoglobin 26.4 pg (26-34); Mean Corpuscular Volume 88.8 fl (80-100); Mean Platelet Volume 9.9 fl (7.4-10.4); Platelet Count Result 168 k/mm3 (150-375); Red Cell Distribution Width 17.5 % (11.5-14.5); White Blood Count 4.4 K/mm3 (4.5-10.0)
[2022-05-30 07:18] LABS: Alanine Aminotransferase 15 U/L (6-50); Albumin Level 3.9 g/dL (3.5-5.1); Alkaline Phosphatase 58 U/L (38-126); Anion Gap 10 mmol/L (8-16); Aspartate Amino Transferase 16 U/L (17-59); Bilirubin,Total 0.5 mg/dL (0.2-1.3); Blood Urea Nitrogen 38 mg/dL (9-20); Calcium 8.8 mg/dL (8.4-10.2); Carbon Dioxide 28 mmol/L (22-30); Chloride 96 mmol/L (98-107); Estimated CRCL calculation 11 ml/min; Estimated Glomerular Filt Rate 8; Glucose 104 mg/dL (65-110); Lactate Dehydrogenase 117 U/L (120-246); Magnesium 1.9 mg/dL (1.6-2.3); Phosphorus 5.9 mg/dL (2.5-4.5); Sodium 134 mmol/L (137-145)
[2022-05-30 07:56] LABS: Procalcitonin 0.8 ng/mL
--- NOTE | 2022-05-30 08:14 | PM.IMPN ---
Progress Note: A&P Assessment and Plan (1) COVID: Code(s): U07.1 - COVID-19 Status: Acute Assessment and Plan: Symptoms seem to be that nausea, vomiting, and some loose stools He has been vaccinated and boosted. No known sick contacts. Lingering cough from pneumonia in March. He does not have an active oxygen requirement thus no indication for dexamethasone. He is on dialysis and remdesivir is contraindicated in renal failure. Continue supportive care. Initiate isolation precautions. (2) Abnormal chest x-ray: Code(s): R93.89 - Abnormal findings on diagnostic imaging of other specified body structures Status: Acute Assessment and Plan: Chest x-ray shows airspace opacities in the mid and lower lung zones bilaterally and small effusions which could represent pulmonary edema, pneumonia, atelectasis, or combination thereof. Patient does have a cough. He does not look overtly volume overloaded however did not have any fluid taken off on dialysis yesterday. Patient given one dose of Lasix on admission and BUN and creatinine increased. Imaging does not seem to be consistent with COVID pneumonia. Sputum culture awaiting collection Procalcitonin 0.8 Broad spectrum antibiotics started. Azithromycin and ceftriaxone. Nephrology consulted and appreciated recommendations. Patient plan for dialysis tomorrow (3) Heart failure with reduced ejection fraction: Code(s): I50.20 - Unspecified systolic (congestive) heart failure Status: Acute Assessment and Plan: Chronic Not overtly volume overloaded. Plan is as detailed above. Continue lisinopril, metoprolol, and furosemide. (4) End-stage renal disease on hemodialysis: Code(s): N18.6 - End stage renal disease; Z99.2 - Dependence on renal dialysis Status: Acute Assessment and Plan: Chronic Due for dialysis on tomorrow. Dr. Alegria seeing patient (5) Chronic anemia: Code(s): D64.9 - Anemia, unspecified Status: Acute Assessment and Plan: Chronic Stable on review of previous labs. Time Spent With Patient Time with patient: Greater than 35 minutes Subjective Date/time seen: 05/30/22 08:14 Interval history: 57-year-old male with a history of end-stage renal disease, hypertension, chronic anemia, and CAD. Patient presented to the ER due to nausea vomiting and shortness of breath. Patient tested positive for COVID. Patient also has lingering dry cough it was positive for pneumonia in March. With seeing the patient today patient states that he feels good and is no longer having nausea and vomiting and shortness of breath symptoms. Patient is due for dialysis tomorrow and is worried due to his COVID positive status that he will be able to receive dialysis. Real Estate Economist at [place], Dr. Alegria, has agreed to treat patient. Patient typically gets dialysis on Tuesday. Patient denies shortness of breath, chest pain, nausea, vomiting, diarrhea and fever. Review of Systems Review of Systems: All systems reviewed & are unremarkable except as noted in HPI and below Exam Narrative: GENERAL: Comfortable, no acute distress HENMT: moist mucous membranes EYES: EOM intact b/l, periorbital edema NECK: no lymphadenopathy RESPIRATORY: clear to auscultation CARDIO: RRR GI: soft, nontender, bowel sounds present SKIN: no rashes, bronzed skin EXTREMITIES: no edema, redness or tenderness Objective Data Vital Signs Vital Signs: Vital Signs - 24 hr 05/29/22 08:29 05/29/22 09:01 05/29/22 10:15 Temperature 100.8 F H Pulse Rate 100 101 H Respiratory Rate 23 H 22 H Blood Pressure 141/91 H 169/108 H Pulse Oximetry 92 94 94 Oxygen Delivery Room Air Room Air 05/29/22 11:28 05/29/22 13:29 05/29/22 14:48 Temperature Pulse Rate 99 90 92 Respiratory Rate 23 H 12 18 Blood Pressure 145/100 H 178/98 H 160/96 H Pulse Oximetry 94 94 95 Oxygen De
[2022-05-30] MEDS: ASPIRIN 81 MG ENTERIC TABLET PO (09:55)
[2022-05-30] MEDS: FUROSEMIDE 20 MG TABLET PO (09:55)
[2022-05-30] MEDS: ROSUVASTATIN 10 MG TABLET 40 MG PO (09:55)
[2022-05-30] MEDS: CALCIUM ACETATE 667 MG TABLET PO (09:55)
[2022-05-30] MEDS: PANTOPRAZOLE 40 MG TABLET PO (09:55)
[2022-05-30] MEDS: lisinopriL 20 MG TABLET PO (09:56)
[2022-05-30] MEDS: hydrALAZINE HCL 50 MG TABLET 100 MG PO ×2 (09:56→20:02)
[2022-05-30] MEDS: ENOXAPARIN 30 MG/0.3 ML SYRINGE SUB-Q (09:56)
[2022-05-30] MEDS: VITAMIN B CMPLX/VIT C/FOLIC AC 1 CAPSULE 1 CAP PO (09:56)
[2022-05-30] MEDS: METOPROLOL SUCCINATE EXT REL 100 MG TABCR PO (09:59)
--- NOTE | 2022-05-30 10:33 | PM.CNNEP ---
Assessment and Plan Assessment and plan (1) End-stage renal disease on hemodialysis: Code(s): N18.6 - End stage renal disease; Z99.2 - Dependence on renal dialysis Status: Acute Assessment and Plan: the patient has end-stage renal disease. He is on dialysis 3 times a week. He will get treated tomorrow. His end-stage renal disease is due to hypertension. his volume status looks good. He has no swelling. His electrolytes are fine. His potassium is normal he will get a treatment tomorrow. (2) COVID: Code(s): U07.1 - COVID-19 Status: Acute Assessment and Plan: The patient has nausea vomiting and a slight cough for his symptoms from the COVID. He is not hypoxic. (3) Abnormal chest x-ray: Code(s): R93.89 - Abnormal findings on diagnostic imaging of other specified body structures Status: Acute Assessment and Plan: The patient does have an abnormal chest x-ray. Possibly he has superimposed Bacteria or other viral pneumonia. he is getting cefepime and Zithromax for this. (4) Chronic anemia: Code(s): D64.9 - Anemia, unspecified Status: Acute Assessment and Plan: The patient has anemia of end-stage renal disease. He gets Epogen. Hemoglobin is 8.7. Will give him EPO (5) Heart failure with reduced ejection fraction: Code(s): I50.20 - Unspecified systolic (congestive) heart failure Status: Acute Assessment and Plan: this is fairly well compensated (6) Coronary artery disease: Code(s): I25.10 - Atherosclerotic heart disease of [place] coronary artery without angina pectoris Status: Acute Assessment and Plan: he is not having any chest pain (7) Essential hypertension: Code(s): I10 - Essential (primary) hypertension Status: Acute Assessment and Plan: his blood pressure is under good control between 103 and 143 History of Present Illness Reason for Consult Consult date: 05/30/22 Chief Complaint Chief complaint: COVID History of Present Illness Narrative: Audi is a very pleasant 57-year-old gentleman who has multiple medical problems including end-stage renal disease on dialysis 3 times a week on Wednesdays and Fridays at [facility], [facility], congestive heart failure with reduced ejection fraction, vitamin-D deficiency, anemia of chronic kidney disease, renal osteodystrophy, hypertension, nephrolithiasis. The patient was going to go to [place] yesterday afternoon for the holiday but in the morning he developed nausea and vomiting. Could keep anything down. He had no belly pain. He had a little diarrhea. No chest pain or shortness of breath. No fevers or chills. A little bit of a cough but no shortness of breath. He came to the ER and he was evaluated. He was swabbed is positive for COVID so was admitted. The patient has normal oxygenation. He is in respiratory isolation. He had his dialysis on Tuesday and did well. He left at his dry weight he used to smoke and used to drink but does not anymore. Review of Systems Constitutional: Constitutional: Reports no additional constitutional complaints Eyes: Eyes: Reports no additional eye complaints ENT: Reports system reviewed and no additional complaints, except as documented Cardiovascular: Cardiovascular: Reports no additional cardiovascular complaints Respiratory: Respiratory: Reports no additional respiratory complaints Gastrointestinal: Gastrointestinal: Reports no additional gastrointestinal complaints Genitourinary: Genitourinary: Reports no additional male genitourinary complaints Musculoskeletal: Musculoskeletal: Reports no additional musculoskeletal complaints Integumentary/Breasts: Skin/Breast: Reports system reviewed and no additional complaints, except as docu Neurologic: Reports system reviewed and no additional complaints, except as documented Psychiatric: Psychiatri
[2022-05-30] MEDS: CHOLECALCIFEROL 1,000 UNITS TABLET 4000 UNITS PO (11:20)
[2022-05-30] MEDS: MELATONIN 3 MG TABLET PO (20:02)
[2022-05-30] MEDS: guaiFENesin/DEXTROMETHORPHAN 10 ML UDC 5 ML PO (23:37)
[2022-05-31] VITALS (18 sets, daily range): BP systolic 133–189; BP diastolic 80–116; PULSE 73–89; RESP 14–18; TEMP 36–37.3; O2SAT 95–97
[2022-05-31 07:23] LABS: Hematocrit 31.3 % (42.0-52.0); Hemoglobin 9.3 g/dL (14.0-18.0); Mean Corpuscular HGB Conc 29.7 g/dl (32-36); Mean Corpuscular Hemoglobin 25.7 pg (26-34); Mean Corpuscular Volume 86.5 fl (80-100); Mean Platelet Volume 9.6 fl (7.4-10.4); Platelet Count Result 179 k/mm3 (150-375); Red Blood Count 3.62 M/mm3 (4.6-6.20); Red Cell Distribution Width 17.4 % (11.5-14.5); White Blood Count 5.2 K/mm3 (4.5-10.0)
[2022-05-31 07:27] LABS: Anion Gap 11 mmol/L (8-16); Blood Urea Nitrogen 50 mg/dL (9-20); Calcium 8.1 mg/dL (8.4-10.2); Carbon Dioxide 26 mmol/L (22-30); Chloride 91 mmol/L (98-107); Estimated CRCL calculation 10 ml/min; Estimated Glomerular Filt Rate 7; Glucose 77 mg/dL (65-110); Phosphorus 6.6 mg/dL (2.5-4.5); Potassium 4.2 mmol/L (3.4-5.0); Sodium 128 mmol/L (137-145)
[2022-05-31 08:02] LABS: Alanine Aminotransferase 15 U/L (6-50); Alkaline Phosphatase 56 U/L (38-126); Anion Gap 12 mmol/L (8-16); Aspartate Amino Transferase 18 U/L (17-59); Bilirubin,Total 0.4 mg/dL (0.2-1.3); Blood Urea Nitrogen 52 mg/dL (9-20); Calcium 8.1 mg/dL (8.4-10.2); Carbon Dioxide 24 mmol/L (22-30); Chloride 91 mmol/L (98-107); Estimated CRCL calculation 10 ml/min; Estimated Glomerular Filt Rate 7; Glucose 77 mg/dL (65-110); Potassium 4.2 mmol/L (3.4-5.0); Sodium 127 mmol/L (137-145)
--- NOTE | 2022-05-31 08:02 | P.PNIM_ITS ---
Progress Note: A&P Assessment and Plan (1) COVID: Code(s): U07.1 - COVID-19 Status: Acute Assessment and Plan: Symptoms seem to be that nausea, vomiting, and some loose stools * He has been vaccinated and boosted. * No known sick contacts. * Lingering cough from pneumonia in March. * He does not have an active oxygen requirement thus no indication for dexamethasone. * He is on dialysis and remdesivir is contraindicated in renal failure. * Continue supportive care. * Initiate isolation precautions. (2) Abnormal chest x-ray: Code(s): R93.89 - Abnormal findings on diagnostic imaging of other specified body structures Status: Acute Assessment and Plan: Chest x-ray shows airspace opacities in the mid and lower lung zones bilaterally and small effusions which could represent pulmonary edema, pneumonia, atelectasis, or combination thereof. Patient does have a cough. * He does not look overtly volume overloaded however did not have any fluid taken off on dialysis yesterday. * Patient given one dose of Lasix on admission and BUN and creatinine increased. * Imaging does not seem to be consistent with COVID pneumonia. * Sputum culture awaiting collection * Procalcitonin 0.8 * Broad spectrum antibiotics started. Azithromycin and ceftriaxone. (3) Heart failure with reduced ejection fraction: Code(s): I50.20 - Unspecified systolic (congestive) heart failure Status: Acute Assessment and Plan: Chronic * Not overtly volume overloaded. * Plan is as detailed above. * Continue lisinopril, metoprolol, and furosemide. (4) End-stage renal disease on hemodialysis: Code(s): N18.6 - End stage renal disease; Z99.2 - Dependence on renal dialysis Status: Acute Assessment and Plan: Chronic * Nephrology consulted and appreciated recommendations. * Patient getting dialysis today (5) Chronic anemia: Code(s): D64.9 - Anemia, unspecified Status: Acute Assessment and Plan: Chronic * Stable on review of previous labs. Subjective Date/time seen: 05/31/22 08:02 Objective Data Vital Signs Vital Signs: Vital Signs - 24 hr 05/30/22 09:59 05/30/22 12:00 05/30/22 09:55 Temperature 97.2 F L Pulse Rate 69 77 Respiratory Rate 16 Blood Pressure 129/83 Pulse Oximetry 98 Oxygen Delivery Room Air 05/30/22 12:00 05/30/22 16:00 05/30/22 17:00 Temperature 98.1 F Pulse Rate 78 72 74 Respiratory Rate 16 Blood Pressure 154/87 H Pulse Oximetry 97 Oxygen Delivery 05/30/22 20:00 05/30/22 20:00 05/30/22 20:00 Temperature 98.9 F Pulse Rate 75 77 Respiratory Rate 18 Blood Pressure 135/79 Pulse Oximetry 98 Oxygen Delivery Room Air 05/31/22 00:00 05/31/22 00:00 05/31/22 04:00 Temperature 99 F Pulse Rate 73 82 81 Respiratory Rate 18 Blood Pressure 133/80 Pulse Oximetry 97 Oxygen Delivery 05/31/22 04:00 Temperature 99 F Pulse Rate 83 Respiratory Rate 17 Blood Pressure 159/92 H Pulse Oximetry 97 Oxygen Delivery Intake/Output Intake/Output:
--- NOTE | 2022-05-31 08:02 | PM.IMPN ---
Progress Note: A&P Assessment and Plan (1) COVID: Code(s): U07.1 - COVID-19 Status: Acute Assessment and Plan: Symptoms seem to be that nausea, vomiting, and some loose stools He has been vaccinated and boosted. No known sick contacts. Lingering cough from pneumonia in March. He does not have an active oxygen requirement thus no indication for dexamethasone. He is on dialysis and remdesivir is contraindicated in renal failure. Continue supportive care. Initiate isolation precautions. (2) Abnormal chest x-ray: Code(s): R93.89 - Abnormal findings on diagnostic imaging of other specified body structures Status: Acute Assessment and Plan: Chest x-ray shows airspace opacities in the mid and lower lung zones bilaterally and small effusions which could represent pulmonary edema, pneumonia, atelectasis, or combination thereof. Patient does have a cough. He does not look overtly volume overloaded however did not have any fluid taken off on dialysis yesterday. Patient given one dose of Lasix on admission and BUN and creatinine increased. Imaging does not seem to be consistent with COVID pneumonia. Sputum culture awaiting collection Procalcitonin 0.8 Broad spectrum antibiotics started. Azithromycin and ceftriaxone. (3) Heart failure with reduced ejection fraction: Code(s): I50.20 - Unspecified systolic (congestive) heart failure Status: Acute Assessment and Plan: Chronic Not overtly volume overloaded. Plan is as detailed above. Continue lisinopril, metoprolol, and furosemide. (4) End-stage renal disease on hemodialysis: Code(s): N18.6 - End stage renal disease; Z99.2 - Dependence on renal dialysis Status: Acute Assessment and Plan: Chronic Nephrology consulted and appreciated recommendations. Patient getting dialysis today (5) Chronic anemia: Code(s): D64.9 - Anemia, unspecified Status: Acute Assessment and Plan: Chronic Stable on review of previous labs. Subjective Date/time seen: 05/31/22 08:02 Objective Data Vital Signs Vital Signs: Vital Signs - 24 hr 05/30/22 09:59 05/30/22 12:00 05/30/22 09:55 Temperature 97.2 F L Pulse Rate 69 77 Respiratory Rate 16 Blood Pressure 129/83 Pulse Oximetry 98 Oxygen Delivery Room Air 05/30/22 12:00 05/30/22 16:00 05/30/22 17:00 Temperature 98.1 F Pulse Rate 78 72 74 Respiratory Rate 16 Blood Pressure 154/87 H Pulse Oximetry 97 Oxygen Delivery 05/30/22 20:00 05/30/22 20:00 05/30/22 20:00 Temperature 98.9 F Pulse Rate 75 77 Respiratory Rate 18 Blood Pressure 135/79 Pulse Oximetry 98 Oxygen Delivery Room Air 05/31/22 00:00 05/31/22 00:00 05/31/22 04:00 Temperature 99 F Pulse Rate 73 82 81 Respiratory Rate 18 Blood Pressure 133/80 Pulse Oximetry 97 Oxygen Delivery 05/31/22 04:00 Temperature 99 F Pulse Rate 83 Respiratory Rate 17 Blood Pressure 159/92 H Pulse Oximetry 97 Oxygen Delivery Intake/Output Intake/Output: Intake & Output 05/28/22 05/29/22 05/30/22 05/31/22 23:59 23:59 23:59 23:59 Intake Total 900 770 Output Total 925 1125 Balance 960 -125 -6759 Meds/Results Medications: Active Medications Generic Name Dose Route Start Last Admin Trade Name Freq PRN Reason Stop Dose Admin Acetaminophen 650 mg 05/29/22 20:20 Acetaminophen 325 Mg Tablet PO Q6H PRN Mild Pain (1-3) or Fever Albuterol 1 puff 05/29/22 20:29 Albuterol Sulfate (*Sp) Inhaler INHALATION Q4HRT PRN Dyspnea Aspirin 81 mg 05/30/22 09:00 05/30/22 09:55 Aspirin 81 Mg Enteric Tablet PO 81 mg DAILY TOM Administration Calcium Acetate 667 mg 05/29/22 21:00 05/30/22 09:55 Calcium Acetate 667 Mg Tablet PO 667 mg DAILY TOM Administration Enoxaparin Sodium 30 mg 05/30/22 09:00 05/30/22 09:56 Enoxaparin 30 Mg/0.3 Ml Syringe SUB-
[2022-05-31] MEDS: SODIUM CHLORIDE 0.9% IV 1,000 ML 999 ML IV CONT (12:02)
--- NOTE | 2022-05-31 12:18 | PM.DS ---
DS: Admitting Diagnosis Discharge Date 05/31/22 Admitting Diagnosis Emesis, COVID-19 DS: Discharge Diagnosis Discharge Diagnosis (1) COVID: Code(s): U07.1 - COVID-19 Status: Acute Assessment and Plan: Symptoms seem to be that nausea, vomiting, and some loose stools He has been vaccinated and boosted. No known sick contacts. Lingering cough from pneumonia in March. He does not have an active oxygen requirement thus no indication for dexamethasone. He is on dialysis and remdesivir is contraindicated in renal failure. Continue supportive care. Initiate isolation precautions. (2) Abnormal chest x-ray: Code(s): R93.89 - Abnormal findings on diagnostic imaging of other specified body structures Status: Acute Assessment and Plan: Chest x-ray shows airspace opacities in the mid and lower lung zones bilaterally and small effusions which could represent pulmonary edema, pneumonia, atelectasis, or combination thereof. Patient does have a cough. He does not look overtly volume overloaded however did not have any fluid taken off on dialysis yesterday. Patient given one dose of Lasix on admission and BUN and creatinine increased. Imaging does not seem to be consistent with COVID pneumonia. Sputum culture awaiting collection Procalcitonin 0.8 Broad spectrum antibiotics started. Azithromycin and ceftriaxone. (3) Heart failure with reduced ejection fraction: Code(s): I50.20 - Unspecified systolic (congestive) heart failure Status: Acute Assessment and Plan: Chronic Not overtly volume overloaded. Plan is as detailed above. Continue lisinopril, metoprolol, and furosemide. (4) End-stage renal disease on hemodialysis: Code(s): N18.6 - End stage renal disease; Z99.2 - Dependence on renal dialysis Status: Acute Assessment and Plan: Chronic Nephrology consulted and appreciated recommendations. Patient getting dialysis today (5) Chronic anemia: Code(s): D64.9 - Anemia, unspecified Status: Acute Assessment and Plan: Chronic Stable on review of previous labs. DS: Summary Hospital Course Reason for hospitalization: Emesis, COVID-19 Hospital Course: 57-year-old patient with a history of end-stage renal disease the undergoes dialysis on Tuesday, CAD status post CABG, and hypertension presented to the ER with chief complaint of vomiting. Once patient arrived to the ER nausea and vomiting stopped. Patient was diagnosed with pneumonia in March and has a lingering cough. Patient's initial workup remarkable for COVID-19. Chest x-ray revealed airspace opacities with pleural effusions. Nephrology consulted and Dr. Alegria following the patient. Patient's last dialysis was on 05/28/2022 and is due for dialysis on 05/31/2022. Patient scheduled for dialysis while on being in an patient. Care coordination working with patient to set up outpatient dialysis. Patient feeling well and not requiring oxygen. Patient not a candidate for remdesivir due to renal failure and there is no indication for dexamethasone. Patient is stable and ready for discharge. Time Spent with Patient Time attestation: Total time spent providing and/or coordinating discharge services: Exam Narrative: GENERAL: Comfortable, no acute distress HENMT: moist mucous membranes EYES: EOM intact b/l, periorbital edema NECK: no lymphadenopathy RESPIRATORY: clear to auscultation CARDIO: RRR GI: soft, nontender, bowel sounds present SKIN: no rashes, bronzed skin EXTREMITIES: no edema, redness or tenderness DS: Data Data Completed and Pending Labs on day of discharge: Labs from last 24 hours 05/31/22 05/31/22 05/31/22 06:12 06:12 06:12 WBC 5.2 RBC 3.62 L Hgb 9.3 L Hct 31.3 L MCV 86.5 MCH 25.7 L MCHC 29.7 L RDW 17.4 H Plt Count 179 MPV 9.6 Sodium 127 L 128 L Potassium 4.2 4.2 Chlorid
[2022-05-31] MEDS: lisinopriL 20 MG TABLET PO (12:26)
[2022-05-31] MEDS: FUROSEMIDE 20 MG TABLET PO (12:26)
[2022-05-31] MEDS: ROSUVASTATIN 10 MG TABLET 40 MG PO (12:27)
[2022-05-31] MEDS: CHOLECALCIFEROL 1,000 UNITS TABLET 4000 UNITS PO (12:27)
[2022-05-31] MEDS: ENOXAPARIN 30 MG/0.3 ML SYRINGE SUB-Q (12:27)
[2022-05-31] MEDS: ASPIRIN 81 MG ENTERIC TABLET PO (12:27)
[2022-05-31] MEDS: METOPROLOL SUCCINATE EXT REL 100 MG TABCR PO (12:27)
[2022-05-31] MEDS: hydrALAZINE HCL 50 MG TABLET 100 MG PO (12:27)
[2022-05-31] MEDS: CALCIUM ACETATE 667 MG TABLET PO (12:27)
[2022-05-31] MEDS: VITAMIN B CMPLX/VIT C/FOLIC AC 1 CAPSULE 1 CAP PO (12:27)
[2022-05-31] MEDS: PANTOPRAZOLE 40 MG TABLET PO (12:27)
--- NOTE | 2022-05-31 14:30 | PM.PNNEP ---
Progress Note: A&P Assessment and Plan (1) End-stage renal disease on hemodialysis: Code(s): N18.6 - End stage renal disease; Z99.2 - Dependence on renal dialysis Status: Acute Assessment and Plan: the patient has end-stage renal disease. He is on dialysis 3 times a week. He will get treated tomorrow. His end-stage renal disease is due to hypertension. he had dialysis earlier today and did well. His volume status looks good and his potassium is fine (2) COVID: Code(s): U07.1 - COVID-19 Status: Acute Assessment and Plan: The patient had nausea vomiting and a slight cough for his symptoms from the COVID. symptoms are much better now. He is eager for discharge He is not hypoxic. (3) Abnormal chest x-ray: Code(s): R93.89 - Abnormal findings on diagnostic imaging of other specified body structures Status: Acute Assessment and Plan: The patient does have an abnormal chest x-ray. Possibly he has superimposed Bacteria or other viral pneumonia. he is getting cefepime and Zithromax for this. (4) Chronic anemia: Code(s): D64.9 - Anemia, unspecified Status: Acute Assessment and Plan: The patient has anemia of end-stage renal disease. He gets Epogen. hemoglobin is up to 9.3. He is on Epogen (5) Heart failure with reduced ejection fraction: Code(s): I50.20 - Unspecified systolic (congestive) heart failure Status: Acute Assessment and Plan: this is fairly well compensated (6) Coronary artery disease: Code(s): I25.10 - Atherosclerotic heart disease of [place] coronary artery without angina pectoris Status: Acute Assessment and Plan: he is not having any chest pain (7) Essential hypertension: Code(s): I10 - Essential (primary) hypertension Status: Acute Assessment and Plan: his blood pressure is a bit high. Will increase lisinopril to40mg Subjective Date/time seen: 05/31/22 14:30 Interval history: patient feels good today. He has not had any more nausea or vomiting. No cough or fever. He is eager for discharge Review of Systems Cardiovascular: Cardiovascular: Reports no additional cardiovascular complaints Respiratory: Respiratory: Reports no additional respiratory complaints Gastrointestinal: Gastrointestinal: Reports no additional gastrointestinal complaints Genitourinary: Genitourinary: Reports no additional male genitourinary complaints Exam Narrative: WDWN in NAD skin no rash head ncat lungs clear cor reg no rub abd BS+ nontender and soft ext no edema. Objective Data Vital Signs Vital Signs: Vital Signs - 24 hr 05/30/22 16:00 05/30/22 17:00 05/30/22 20:00 Temperature 98.1 F 98.9 F Pulse Rate 72 74 75 Respiratory Rate 16 18 Blood Pressure 154/87 H 135/79 Pulse Oximetry 97 98 Oxygen Delivery 05/30/22 20:00 05/30/22 20:00 05/31/22 00:00 Temperature 99 F Pulse Rate 77 73 Respiratory Rate 18 Blood Pressure 133/80 Pulse Oximetry 97 Oxygen Delivery Room Air 05/31/22 00:00 05/31/22 04:00 05/31/22 04:00 Temperature 99 F Pulse Rate 82 81 83 Respiratory Rate 17 Blood Pressure 159/92 H Pulse Oximetry 97 Oxygen Delivery 05/31/22 08:00 05/31/22 08:53 05/31/22 08:40 Temperature 99.2 F 98.1 F Pulse Rate 83 81 83 Respiratory Rate 14 18 Blood Pressure 156/99 H 156/94 H 164/95 H Pulse Oximetry 95 Oxygen Delivery 05/31/22 09:10 05/31/22 09:30 05/31/22 09:50 Temperature Pulse Rate 83 86 85 Respiratory Rate Blood Pressure 189/116 H 159/102 H 161/96 H Pulse Oximetry Oxygen Delivery 05/31/22 10:10 05/31/22 10:30 05/31/22 10:50 Temperature Pulse Rate 85 81 80 Respiratory Rate Blood Pressure 157/98 H 161/94 H 166/98 H Pulse Oximetry Oxygen Delivery 05/31/22 11:10 05/31/22 11:30 05/31/22 11:54 Temperature Pulse Rate 80 79 82 Re
[2022-06-03 20:40] LABS: Legionella pneumophila Ag Ur Not Detected (Not Detected)
[2022-06-04 21:07] LABS: Mycoplasma IgM Antibody Titer 35 U/mL (<770)
[2022-06-09 00:37] LABS: Pneumococcal Antigen Urine Not Detected (Not Detected)
== END 2022-05-31 16:05 | disposition home or self-care (01) ==
LOC: ANHED 09:04 → ANH3MEDSUR 05-30 10:36
PROVIDERS: Internal Medicine Critical Care Medicine; Internal Medicine Nephrology; Physician Assistant; Admitting Provider Family Medicine; Emergency Provider Emergency Medicine; PCP Internal Medicine; Visit Provider Student in an Organized Health Care Education/Training Program
DX: U07.1 COVID-19 (principal); I13.2 Hypertensive heart and chronic kidney disease with heart failure and with stage 5 chronic kidney disease, or end stage renal disease; I50.20 Unspecified systolic (congestive) heart failure; N18.6 End stage renal disease; Z99.2 Dependence on renal dialysis; N25.81 Secondary hyperparathyroidism of renal origin; D63.1 Anemia in chronic kidney disease; R60.0 Localized edema; Z96.651 Presence of right artificial knee joint; R05.9 Cough, unspecified; R06.02 Shortness of breath; N40.0 Benign prostatic hyperplasia without lower urinary tract symptoms; E55.9 Vitamin D deficiency, unspecified; I25.10 Atherosclerotic heart disease of native coronary artery without angina pectoris; E78.5 Hyperlipidemia, unspecified; Z95.1 Presence of aortocoronary bypass graft; R19.7 Diarrhea, unspecified; R91.8 Other nonspecific abnormal finding of lung field; K21.9 Gastro-esophageal reflux disease without esophagitis; Z87.01 Personal history of pneumonia (recurrent); Z87.891 Personal history of nicotine dependence; Z79.82 Long term (current) use of aspirin; Z79.51 Long term (current) use of inhaled steroids; Z79.899 Other long term (current) drug therapy
CPT/HCPCS: 36415; 71046; 80053; 80069; 81001; 82565; 82728; 83615; 83690; 83735; 84100; 84145; 84484; 85025; 85027; 86140; 86738; 87070; 87205; 87449; 87636; 87899; 93005; 93971; 96365; 96366; 96368; 96372; 96375; 96376; 99285; A9270; G0257; G0378; J0456; J0696; J1100; J1644; J1650; J1940; J7030

== ENCOUNTER 2022-06-15 10:59 | Outpatient (CLI) | payer OTHER, SELFPAY ==
--- NOTE | ~2022-06-15 | XR_ITS ---
EXAMINATION: XR chest 2V Exam Date/Time: 06/15/2022 11:10 NURSES ASSISTANT HISTORY: r/o CHF, Pulmonary congestion, sob, COUGH, PNEUMONIA 3MO AG0 Comparison: 05/29/2022. RESULT: Lines, tubes, and devices: Intact sternotomy wires. Mediastinal surgical clips. Atrial occlusion dev ice. Lungs and pleura: Persistent hazy mid and lower lung groundglass opacity with coarse overlying linea r and reticulonodular opacities, increased but still small left costophrenic angle blunting and presu med right pleural parenchymal scarring. Round opacity projecting in the posterior lung in the lateral view. Cardiomediastinal silhouette: Stable. Other: No acute osseous or upper abdominal finding. IMPRESSION: Unchanged pulmonary opacities may represent organizing pneumonia, chronic respiratory bronchiolitis, or other chronic interstitial/inflammatory change, etc. Round opacity in the posterior lung, likely l eft-sided, may represent loculated fluid, rounded atelectasis, or mass. Slightly increased but still small left pleural effusion. Consider CT of the chest without and with contrast for further evaluatio n. Reviewed, dictated and finalized at location [facility]. ES ASSISTANT IMPRESSION: Unchanged pulmonary opacities may represent organizing pneumonia, chronic respi ratory bronchiolitis, or other chronic interstitial/inflammatory change, etc. R ound opacity in the posterior lung, likely left-sided, may represent loculated fluid, rounded atelectasis, or mass. Slightly increased but still small left pl eural effusion. Consider CT of the chest without and with contrast for further evaluation.
== END 2022-06-15 11:00 | disposition home or self-care (01) ==
PROVIDERS: PCP Internal Medicine; Visit Provider Internal Medicine
DX: R05.3 Chronic cough (principal); R91.8 Other nonspecific abnormal finding of lung field
CPT/HCPCS: 71046

== ENCOUNTER 2022-08-03 15:36 | Outpatient (CLI) | payer OTHER, SELFPAY ==
--- NOTE | ~2022-08-03 | CT_ITS ---
CT Scan of the Chest without Contrast: Clinical Indication: Shortness of breath Technique: Contiguous sections were acquired throughout the chest without intravenous contrast. Dose reduction technique was used on this scan by utilizing automated exposure control and iterative recon struction technique. The dose-length product (DLP) was 213.80 mGy-cm. Findings: There is no evidence of any significant mediastinal, hilar or axillary lymphadenopathy. Extensive cor onary artery calcifications are present. There are atherosclerotic calcifications of the aorta. No ao rtic aneurysm. No pericardial effusion. Moderate left pleural effusion is present. No right pleural effusion. There is minimal left basilar atelectasis. There is linear right basilar scarring. No suspicious pulm onary nodule seen. Images through the upper abdomen reveal probable scattered small hepatic cysts. Impression: Moderate left pleural effusion. Reviewed, dictated and finalized at [facility]. N ASSISTANT Impression: Moderate left pleural effusion.
== END 2022-08-03 15:37 | disposition home or self-care (01) ==
PROVIDERS: PCP Internal Medicine; Visit Provider Nurse Practitioner Family
DX: R91.8 Other nonspecific abnormal finding of lung field (principal); R05.9 Cough, unspecified; J90 Pleural effusion, not elsewhere classified
CPT/HCPCS: 71250

== ENCOUNTER 2022-08-04 08:57 | Emergency (ER) | payer OTHER, SELFPAY ==
[2022-08-04] VITALS (37 sets, daily range): BP systolic 143–191; BP diastolic 88–137; PULSE 85–101; RESP 15–23; TEMP 37.1; O2SAT 95–100
--- NOTE | ~2022-08-04 | XR_ITS ---
Clinical Indication: Cough PA and lateral views of the chest: Comparison: 06/15/2022 Findings: There are probable small bilateral pleural effusions, left greater than right. There is pro bable mild bibasilar pulmonary edema. Stable linear scarring noted at the lung bases as well. Cardio mediastinal silhouette is within normal limits. Bones and soft tissues are unremarkable. Impression: Probable mild bibasilar pulmonary edema and small bilateral pleural effusions, left greater than righ t. Areas of linear scarring at the lung bases. Reviewed, dictated and finalized at location [facility] ATTENDANT Impression: Probable mild bibasilar pulmonary edema and small bilateral pleural effusions, left greater than right. Areas of linear scarring at the lung bases.
--- NOTE | 2022-08-04 11:25 | ECG_ITS ---
Measurements Intervals [place] Rate: 96 P: 39 WA: 184 QRS: 43 QRSD: 101 T: 50 QT: 374 QTc: 474 Interpretive Statements SINUS RHYTHM BORDERLINE ST-T WAVE ABNORMALITY- LAT/HIGH LAT LEADS BORDERLINE ECG COMPARED TO ECG 05/29/2022 08:40:16 NO SIGNIFICANT CHANGES Electronically Signed On 08-04-2022 12:05:14 MACHINE OPERATOR GENERAL by Tong Urban D.O.
[2022-08-04 11:51] LABS: Basophils Percent Auto 0.8 % (0.2-1.2); Eosinophils Absolute Auto 0.1 K/mm3 (0-0.3); Eosinophils Percent Auto 2.7 % (0-4.4); Hematocrit 34.3 % (42.0-52.0); Hemoglobin 10.3 g/dL (14.0-18.0); Immature Granulocyte Absolute 0.02 K/mm3 (0.00-0.031); Immature Granulocyte Percent A 0.4 % (0-0.5); Lymphocytes Absolute Auto 0.73 K/mm3 (0.9-3.2); Lymphocytes Percent Auto 13.8 % (18.3-44.2); Mean Platelet Volume 9.9 fl (7.4-10.4); Monocytes Absolute Auto 0.5 K/mm3 (0.1-0.6); Monocytes Percent Auto 9.3 % (2.6-8.5); Neutrophils Absolute Auto 3.9 K/mm3 (1.3-6.7); Platelet Count Result 180 k/mm3 (150-375); Red Blood Count 3.81 M/mm3 (4.6-6.20); Red Cell Distribution Width 18.5 % (11.5-14.5); White Blood Count 5.3 K/mm3 (4.5-10.0)
[2022-08-04 11:56] LABS: Alanine Aminotransferase 17 U/L (6-50); Albumin Level 4.7 g/dL (3.5-5.1); Alkaline Phosphatase 75 U/L (38-126); Anion Gap 14 mmol/L (8-16); Aspartate Amino Transferase 20 U/L (17-59); Bilirubin,Total 0.7 mg/dL (0.2-1.3); Blood Urea Nitrogen 52 mg/dL (9-20); Calcium 9.1 mg/dL (8.4-10.2); Carbon Dioxide 22 mmol/L (22-30); Chloride 96 mmol/L (98-107); Estimated CRCL calculation 11 ml/min; Estimated Glomerular Filt Rate 8; Glucose 79 mg/dL (65-110); Potassium 5.2 mmol/L (3.4-5.0); Sodium 132 mmol/L (137-145)
[2022-08-04 12:14] LABS: Influenza A QL RT-PCR Negative (Negative); Influenza B QL RT-PCR Negative (Negative); RSV RNA, RT-PCR Negative (Negative); SARS-CoV-2 RNA PCR Negative
[2022-08-04] MEDS: METOPROLOL SUCCINATE EXT REL 100 MG TABCR PO (12:54)
[2022-08-04] MEDS: ISOSORBIDE MONONITRATE 30 MG TAB.ER.24H PO (12:54)
[2022-08-04] MEDS: FUROSEMIDE 20 MG TABLET 80 MG PO (12:54)
[2022-08-04] MEDS: lisinopriL 20 MG TABLET PO (12:54)
[2022-08-04] MEDS: hydrALAZINE HCL 50 MG TABLET 100 MG PO (12:55)
--- NOTE | 2022-08-04 14:07 | PC.NURSE ---
Lokelma ordered approx 1 hr after oral medication administration. ERP aware about waiting another 1 hr before administering Lokelma. Albuterol will be given by respiratory.
[2022-08-04] MEDS: ALBUTEROL SULFATE NEB 2.5 MG/3 ML INH 5 MG INHALATION (14:21)
[2022-08-04] MEDS: SODIUM ZIRCONIUM CYCLOSILICATE 10 GM POWD.PACK PO (15:03)
[2022-08-04 17:04] LABS: Anion Gap 15 mmol/L (8-16); Blood Urea Nitrogen 55 mg/dL (9-20); Calcium 8.5 mg/dL (8.4-10.2); Carbon Dioxide 22 mmol/L (22-30); Chloride 99 mmol/L (98-107); Estimated CRCL calculation 11 ml/min; Estimated Glomerular Filt Rate 8; Glucose 147 mg/dL (65-110); Potassium 4.6 mmol/L (3.4-5.0); Sodium 136 mmol/L (137-145)
--- NOTE | 2022-08-04 17:22 | ED.GENADULT ---
HPI - General Adult General Chief complaint: Upper Respiratory Infection Stated complaint: MULTI C/O Time Seen by Provider: 08/04/22 11:17 History of Present Illness HPI narrative: 57-year-old male presenting to the emergency department for evaluation of cough and congestion. Patient reports that he has been having white sputum Related Data Home Medications Medication Instructions Recorded Confirmed aspirin 81 mg tablet,delayed 81 mg PO DAILY 03/05/21 07/20/22 release (Adult Aspirin Regimen) pantoprazole 40 mg tablet,delayed 40 mg PO QAM 03/05/21 07/20/22 release calcium acetate(phosphat bind) 667 1 cap PO DAILY 11/30/21 07/20/22 mg capsule lisinopril 20 mg tablet 1 tablet PO DAILY 11/30/21 07/20/22 metoprolol succinate 100 mg 1 tablet PO DAILY 11/30/21 07/20/22 tablet,extended release 24 hr albuterol sulfate 90 mcg/actuation 1 puff inhalation Q4H PRN Dyspnea 12/09/21 07/20/22 aerosol inhaler hydralazine 100 mg tablet 100 mg PO BID 03/28/22 07/20/22 cholecalciferol (vitamin D3) 100 100 mcg PO TIDWMEAL 05/30/22 07/20/22 mcg (4,000 unit) capsule Allergies Allergy/AdvReac Type Severity Reaction Status Date / Time [place] Allergy Severe hives Uncoded 08/10/22 09:38 Review of Systems Review of Systems: CONSTITUTIONAL: Denies fever, chills, or sweats. EYES: Denies visual changes, redness, or discharge. ENT: Denies rhinorrhea, congestion, sore throat, or otalgia. CARDIOVASCULAR: Denies chest pain, palpitations, or edema. RESPIRATORY: See HPI GASTROINTESTINAL: Denies abdominal pain, nausea, vomiting, or diarrhea. GENITOURINARY: Denies dysuria or hematuria. SKIN: Denies rash or itching. MUSCULOSKELETAL: Denies back pain, joint pain, or myalgia. NEUROLOGIC: Denies headache, numbness, or weakness. PSYCHIATRIC: Denies anxiety or depression. [facility] Past Medical History Medical History (Updated 08/10/22 @ 10:22 by Tonya Weiner APRN) Benign prostatic hyperplasia Chest pain Coronary artery disease End-stage renal disease on hemodialysis Erythropoietin deficiency anemia Essential hypertension Gastroesophageal reflux disease Heart failure with reduced ejection fraction History of shingles Hyperparathyroidism due to renal insufficiency Nephrolithiasis Osteoarthritis of right knee Shift work sleep disorder Thyroid nodule incidentally noted on imaging study Vitamin D deficiency Surgical History Surgical History History of cardiac catheterization History of cystoscopy History of four vessel coronary artery bypass graft (02/2021) SMITH to LAD, SVG to PDA, OM 1, OM 2. History of melanoma excision (2004) Right neck. History of total right knee replacement (~02/2022) History of ureter stent Status post creation of arteriovenous fistula (05/2020) Family History Family History Sibling Diabetes mellitus Mother Family history of arthritis Father Family history unknown Social History Social History Social History: Surrogate medical decision maker: Jennie Chau, significant other. Code status: Full code. Smoking status: Former smoker Alcohol intake: never Substance use: never Substance use type: does not use Lack of Transportation: No Lack of Food: Never True Current Housing: I Do Not Have Housing Concerned About Future Housing: No Difficulty Paying Gas/Electric Bills: No Difficulty Paying for Meds: No Currently Unemployed: No Education: High School Diploma/GED Difficulty w/ Childcare or Family Care: No Additional living arrangements comments: Lives in [place]. Additional occupation/education comments: [employer]. Spiritual care concerns: No Exam Narrative: APPEARANCE: Well appearing, no pain, no distress, well-nourished. HEAD: normocephalic, atraumatic. EYES: PERRLA/EOMI, conjunctivae cl
== END 2022-08-04 18:20 | disposition home or self-care (01) ==
PROVIDERS: Emergency Provider Emergency Medicine; PCP Internal Medicine
DX: R05.9 Cough, unspecified (principal); I13.2 Hypertensive heart and chronic kidney disease with heart failure and with stage 5 chronic kidney disease, or end stage renal disease; Z20.822 Contact with and (suspected) exposure to COVID-19; N18.6 End stage renal disease; I50.9 Heart failure, unspecified; D63.1 Anemia in chronic kidney disease; I25.10 Atherosclerotic heart disease of native coronary artery without angina pectoris; K21.9 Gastro-esophageal reflux disease without esophagitis; N40.0 Benign prostatic hyperplasia without lower urinary tract symptoms; N25.81 Secondary hyperparathyroidism of renal origin; E55.9 Vitamin D deficiency, unspecified; M17.11 Unilateral primary osteoarthritis, right knee; G47.26 Circadian rhythm sleep disorder, shift work type; Z99.2 Dependence on renal dialysis; Z95.1 Presence of aortocoronary bypass graft; Z96.651 Presence of right artificial knee joint; Z87.442 Personal history of urinary calculi; Z85.820 Personal history of malignant melanoma of skin; Z87.891 Personal history of nicotine dependence; Z79.82 Long term (current) use of aspirin
CPT/HCPCS: 36415; 71046; 80048; 80053; 85025; 87637; 93005; 94640; 99283; A9270

== ENCOUNTER 2022-09-02 11:21 | Outpatient (CLI) | payer OTHER, SELFPAY ==
[2022-09-02 12:42] LABS: Free T4 Free Thyroxine 1.39 ng/mL (0.78-2.19)
== END 2022-09-02 11:22 | disposition home or self-care (01) ==
LOC: ANHLAB 11:23
PROVIDERS: PCP Internal Medicine; Visit Provider Internal Medicine
DX: E04.1 Nontoxic single thyroid nodule (principal)
CPT/HCPCS: 36415; 84439; 84443

== ENCOUNTER 2022-10-05 00:24 | Day surgery (SDC) | payer OTHER, SELFPAY ==
[2022-09-24 11:53] VITALS: BMI 24.7
[2022-10-05 06:22] VITALS: BP 194/106; PULSE 88; RESP 18; TEMP 36.6; O2SAT 94
[2022-10-05] MEDS: SODIUM CHLORIDE 0.9% IV 500 ML 10 ML IV CONT (06:32)
--- NOTE | 2022-10-05 07:12 | SUR.PREOP ---
Pt blood pressure 194/106. He did not take blood pressure medications this morning. He had dialysis yesterday. Dr. Page notified no new orders received.
--- NOTE | 2022-10-05 07:24 | WPDANESEPPF ---
Anes - Initial Pre Proc Eval Procedure: Operation Date: 10/05/22 07:30 Proposed Procedures p Screening Colonoscopy - Jacques Zhao MD Date/Time: 10/05/22 07:24 Surgeon: Jacques Zhao MD Pre Op Diagnosis: neoplasm screening Patient Data Age: 57 Gender: M Height: 1.83 m Weight: 79.7 kg Last Vital Signs Temp 98 F 10/05/22 06:22 Pulse 88 10/05/22 06:22 Resp 18 10/05/22 06:22 BP 194/106 H 10/05/22 06:22 Pulse Ox 94 10/05/22 06:22 O2 Del Method Room Air 10/05/22 06:22 Allergies Allergy/AdvReac Type Severity Reaction Status Date / Time Bumble Bee Allergy Severe hives Uncoded 10/05/22 06:21 Home Medications Medication Instructions Recorded Confirmed Type aspirin 81 mg tablet,delayed 81 mg PO DAILY 03/05/21 09/24/22 History release (Adult Aspirin Regimen) albuterol sulfate 90 mcg/actuation 1 puff inhalation Q4H PRN Dyspnea 12/09/21 09/24/22 History aerosol inhaler hydralazine 100 mg tablet 100 mg PO BID 03/28/22 09/24/22 History fluticasone 250 mcg-salmeterol 50 1 inh inhalation BID #60 ea 06/15/22 09/24/22 Rx mcg/dose blistr powdr for inhalation (Advair Diskus) fluticasone propionate 50 2 spray intranasal BID #16 grams 06/15/22 09/24/22 Rx mcg/actuation nasal spray,suspension (Flonase Allergy Relief) furosemide 80 mg tablet (Lasix) 80 mg PO QAM #90 tabs 06/15/22 09/24/22 Rx rosuvastatin 10 mg tablet (Crestor) 10 mg PO QHS #90 tabs 06/15/22 09/24/22 Rx acetaminophen 650 mg 650 mg PO Q6H PRN Headache 09/02/22 09/24/22 History tablet,extended release calcitriol 0.25 mcg capsule 0.75 mcg PO 3XW 09/02/22 09/24/22 History calcium acetate(phosphat bind) 667 1,334 mg PO DAILY 09/02/22 09/24/22 History mg capsule cholecalciferol (vitamin D3) 100 2,000 unit PO DAILY 09/02/22 09/24/22 History mcg (4,000 unit) capsule epoetin jase 10,000 unit/mL 8,000 unit IV 3XW 09/02/22 09/24/22 History injection solution (Epogen) fexofenadine 180 mg tablet 180 mg PO DAILY 09/02/22 09/24/22 History heparin pork See Rx Instructions .Route .COMPLEX 09/02/22 09/24/22 History iron sucrose 50 mg iron/2.5 mL 100 mg IV WEEKLY 09/02/22 09/24/22 History intravenous solution (Venofer) isosorbide mononitrate 30 mg 30 mg PO DAILY 09/02/22 09/24/22 History tablet,extended release 24 hr lisinopril 20 mg tablet 20 mg PO BID 09/02/22 09/24/22 History metoprolol succinate 100 mg 100 mg PO BID 09/02/22 09/24/22 History tablet,extended release 24 hr mometasone 50 mcg/actuation nasal 1 spray intranasal DAILY 09/02/22 09/24/22 History spray Patient hx anesthesia problems: none Family hx anesthesia problems: none Results Review: All pre-operative results and documents have been reviewed as part of the pre-operative evaluation. [facility] Past Medical History Medical History Benign prostatic hyperplasia BiPAP (biphasic positive airway pressure) dependence Chest pain Coronary artery disease End-stage renal disease on hemodialysis Erythropoietin deficiency anemia Essential hypertension Gastroesophageal reflux disease Heart failure with reduced ejection fraction History of shingles Hyperparathyroidism due to renal insufficiency Nephrolithiasis Osteoarthritis of right knee Shift work sleep disorder Thyroid nodule incidentally noted on imaging study Vitamin D deficiency Surgical History Surgical History History of cardiac catheterization History of cystoscopy History of four vessel coronary artery bypass graft (02/2021) SMITH to LAD, SVG to PDA, OM 1, OM 2. History of melanoma excision (2004) Right neck. History of total right knee replacement (~02/2022) History of ureter stent S/P CABG x 4 Status post creation of arteriovenous fistula (05/2020) Family History Family History (Reviewed 09/02/22 @ 09:34 by Milady Antonio
--- NOTE | 2022-10-05 07:29 | PM.HPGS ---
History of Present Illness History of Present Illness Consent: Risks, benefits, and alternatives have been discussed and questions answered. Patient agrees to proceed with procedure. Chief complaint: neoplasm screening Narrative: Audi Rosenthal is a 57 year old male here for first screening colonoscopy Review of Systems Constitutional: Constitutional: Denies headache(s) and Denies weakness Eyes: Eyes: Denies blurry vision ENT: Reports Normal hearing present, Denies headache(s) and Denies neck pain Cardiovascular: Cardiovascular: Denies chest pain and Denies dyspnea Respiratory: Respiratory: Denies dyspnea Gastrointestinal: Gastrointestinal: Reports no additional gastrointestinal complaints Genitourinary: Genitourinary: Denies dysuria Musculoskeletal: Musculoskeletal: Denies neck pain Integumentary/Breasts: Skin/Breast: Denies dry skin Neurologic: Reports Normal hearing present, Denies headache(s) and Denies weakness Psychiatric: Psychiatric: Denies anxiety Endocrine: Endocrine: Denies change in body appearance Hematologic/Lymphatic: Hematologic/Lymphatic: Denies easy bleeding Allergic/Immunologic: Allergic/Immunologic: Denies urticaria PMFSH Past Medical History Medical History Benign prostatic hyperplasia BiPAP (biphasic positive airway pressure) dependence Chest pain Coronary artery disease End-stage renal disease on hemodialysis Erythropoietin deficiency anemia Essential hypertension Gastroesophageal reflux disease Heart failure with reduced ejection fraction History of shingles Hyperparathyroidism due to renal insufficiency Nephrolithiasis Osteoarthritis of right knee Shift work sleep disorder Thyroid nodule incidentally noted on imaging study Vitamin D deficiency Surgical History Surgical History History of cardiac catheterization History of cystoscopy History of four vessel coronary artery bypass graft (02/2021) SMITH to LAD, SVG to PDA, OM 1, OM 2. History of melanoma excision (2004) Right neck. History of total right knee replacement (~02/2022) History of ureter stent S/P CABG x 4 Status post creation of arteriovenous fistula (05/2020) Family History Family History Sibling Diabetes mellitus half sister Mother Family history of arthritis Father Family history unknown Social History Social History Social History: Surrogate medical decision maker: Jennie Chau, significant other. Code status: Full code. Smoking status: Never smoker Tobacco type: cigars Alcohol intake: current Alcohol use details: occasionally Substance use: never Substance use type: does not use Lack of Transportation: No Lack of Food: Never True Current Housing: I Do Not Have Housing Concerned About Future Housing: No Difficulty Paying Gas/Electric Bills: No Difficulty Paying for Meds: No Currently Unemployed: No Education: High School Diploma/GED Difficulty w/ Childcare or Family Care: No Living arrangements: alone Additional living arrangements comments: Lives in [place]. Additional occupation/education comments: [employer]. Spiritual care concerns: No Meds Home Medications and Allergies Home Medications Medication Instructions Recorded Confirmed Type aspirin 81 mg tablet,delayed 81 mg PO DAILY 03/05/21 09/24/22 History release (Adult Aspirin Regimen) albuterol sulfate 90 mcg/actuation 1 puff inhalation Q4H PRN Dyspnea 12/09/21 09/24/22 History aerosol inhaler hydralazine 100 mg tablet 100 mg PO BID 03/28/22 09/24/22 History fluticasone 250 mcg-salmeterol 50 1 inh inhalation BID #60 ea 06/15/22 09/24/22 Rx mcg/dose blistr powdr for inhalation (Advair Diskus) fluticasone propio
--- NOTE | 2022-10-05 08:10 | SUR.OPER ---
oneyda tattoo, ref [id number], lot [id number], exp 07/08/24, 2 ml
[2022-10-05 08:23] VITALS: BP 133/77; PULSE 75; RESP 22; O2SAT 98
[2022-10-05 08:33] VITALS: BP 132/77; PULSE 70; RESP 14; O2SAT 100
[2022-10-05 08:43] VITALS: BP 163/101; PULSE 74; RESP 18; O2SAT 99
--- NOTE | 2022-10-05 11:22 | SUR.OPER ---
Resolution 360 Clip, ref [id number], lot [id number], expiration 07/20/2025 x3
== END 2022-10-05 08:51 | disposition home or self-care (01) ==
PROVIDERS: PCP Internal Medicine; Visit Provider Internal Medicine Gastroenterology
PROC: 0DJD8ZZ Inspection of Lower Intestinal Tract, Via Natural or Artificial Opening Endoscopic (ICD-10-PCS; CPT 45378; principal; 2022-10-05 07:30)
DX: Z12.11 Encounter for screening for malignant neoplasm of colon (principal); K51.40 Inflammatory polyps of colon without complications; D12.3 Benign neoplasm of transverse colon; K57.30 Diverticulosis of large intestine without perforation or abscess without bleeding; K64.8 Other hemorrhoids; I25.10 Atherosclerotic heart disease of native coronary artery without angina pectoris; I13.2 Hypertensive heart and chronic kidney disease with heart failure and with stage 5 chronic kidney disease, or end stage renal disease; I50.9 Heart failure, unspecified; N18.6 End stage renal disease; Z99.2 Dependence on renal dialysis; N40.0 Benign prostatic hyperplasia without lower urinary tract symptoms; D63.1 Anemia in chronic kidney disease; N25.81 Secondary hyperparathyroidism of renal origin; K21.9 Gastro-esophageal reflux disease without esophagitis; E55.9 Vitamin D deficiency, unspecified; Z95.1 Presence of aortocoronary bypass graft; Z79.82 Long term (current) use of aspirin; Z79.51 Long term (current) use of inhaled steroids
CPT/HCPCS: 45385; 45381; 88305; J2704; J7040

== ENCOUNTER 2022-11-02 15:26 | Observation (INO) | payer OTHER, SELFPAY ==
[2022-11-02] VITALS (13 sets, daily range): BP systolic 113–141; BP diastolic 58–82; PULSE 80–92; RESP 16–20; TEMP 36.4–36.9; O2SAT 94–100; BMI 23.3
--- NOTE | ~2022-11-02 | XR_ITS ---
EXAMINATION: XR chest 2V DATE: 11/02/2022 16:37 INDICATION: Chest pain. Dizziness. Shortness of breath. TECHNIQUE: Frontal and lateral views of the chest were obtained. COMPARISON: Chest 2 views 08/04/2022 FINDINGS: There is a chronic small left pleural effusion. There is chronic blunting of the right-side d costophrenic angles. There are airspace opacities in left mid and lower lung zones. No pneumothorax . Cardiomegaly is noted. The heart size is normal. There is a closure device at left atrial appendage . IMPRESSION: 1. Stable small left pleural effusion. 2. Stable airspace opacities in left mid and lower lung zones, consistent with atelectasis or less li yobany pneumonia. 3. Cardiomegaly. Reviewed, dictated and finalized at location L. IMPRESSION: 1. Stable small left pleural effusion. 2. Stable airspace opacities in left mid and lower lung zones, consistent with atelectasis or less likely pneumonia. 3. Cardiomegaly.
--- NOTE | 2022-11-02 15:28 | ECG_ITS ---
Measurements Intervals [place] Rate: 80 P: 54 [place]: 203 QRS: 42 QRSD: 105 T: 70 QT: 377 QTc: 435 Interpretive Statements SINUS RHYTHM BORDERLINE ST-T WAVE ABNORMALITY- HIGH LATERAL LEADS BORDERLINE ECG COMPARED TO ECG 08/04/2022 12:02:45 NO SIGNIFICANT CHANGES Electronically Signed On 11-02-2022 16:27:27 CDT by Tong Urban D.O.
[2022-11-02 17:13] LABS: Basophils Absolute Auto 0.1 K/mm3 (0.0-0.1); Basophils Percent Auto 0.8 % (0.2-1.2); Eosinophils Absolute Auto 0.2 K/mm3 (0-0.3); Eosinophils Percent Auto 2.4 % (0-4.4); Immature Granulocyte Percent A 1.3 % (0-0.5); Lymphocytes Absolute Auto 0.98 K/mm3 (0.9-3.2); Mean Corpuscular HGB Conc 29.7 g/dl (32-36); Mean Corpuscular Hemoglobin 28.8 pg (26-34); Mean Corpuscular Volume 97.1 fl (80-100); Monocytes Absolute Auto 0.5 K/mm3 (0.1-0.6); Neutrophils Absolute Auto 5.7 K/mm3 (1.3-6.7); Neutrophils Percent Auto 75.5 % (45.5-73.1); Platelet Count Result 259 k/mm3 (150-375); Red Blood Count 2.08 M/mm3 (4.6-6.20); Red Cell Distribution Width 19.8 % (11.5-14.5); White Blood Count 7.6 K/mm3 (4.5-10.0)
[2022-11-02 17:22] LABS: Alanine Aminotransferase 18 U/L (6-50); Albumin Level 3.7 g/dL (3.5-5.1); Alkaline Phosphatase 61 U/L (38-126); Anion Gap 15 mmol/L (8-16); Aspartate Amino Transferase 21 U/L (17-59); Bilirubin,Total 0.3 mg/dL (0.2-1.3); Blood Urea Nitrogen 109 mg/dL (9-20); Calcium 8.2 mg/dL (8.4-10.2); Carbon Dioxide 16 mmol/L (22-30); Chloride 104 mmol/L (98-107); Estimated CRCL calculation 8 ml/min; Estimated Glomerular Filt Rate 5; Glucose 84 mg/dL (65-110); Lipase 156 U/L (23-300); Potassium 5.6 mmol/L (3.4-5.0); Sodium 135 mmol/L (137-145)
[2022-11-02 17:27] LABS: INR 1.1; Prothrombin Time 14.5 Seconds (11.1-14.7)
[2022-11-02 17:33] LABS: Troponin I < 0.012 ng/mL (0.000-0.034)
[2022-11-02 17:36] LABS: Hematocrit 20.2 % (42.0-52.0)
[2022-11-02 17:38] LABS: Hypochromasia 1+ (NORMAL); Platelet Estimate Adequate (Adequate)
[2022-11-02 17:40] LABS: Schistocytes None Seen (NORMAL)
[2022-11-02] MEDS: DEXTROSE 50% 25 GM/50 ML SYRINGE IV PUSH (19:08)
[2022-11-02] MEDS: INSULIN HUMAN REGULAR (*BKC) 100 UNITS/ML IV PUSH (19:09)
[2022-11-02 19:30] LABS: Troponin I < 0.012 ng/mL (0.000-0.034)
--- NOTE | 2022-11-02 19:33 | ED.GENADULT ---
HPI - General Adult General Chief complaint: Chest Pain Stated complaint: SOB, CP, DIZZY Time Seen by Provider: 11/02/22 17:59 History of Present Illness HPI narrative: 57-year-old male presenting to the ED for evaluation of increased generalized weakness. Patient does have history of end-stage renal disease does get dialysis on Tuesday. Patient had a colonoscopy on October [address] Fletcher. Patient was out of town in [place] 2 weeks ago and had an acute GI bleed. Patient did have a lower scope and he believes they did cauterize a polyp. Patient did require 5 units of packed red blood at that time. Patient was discharged and then had rebleeding again and was having some vomiting of blood. Patient was readmitted and treated with 3 units of packed red blood. Patient is unsure if an upper GI was done. Patient was discharged on Tuesday. Patient was scheduled to have dialysis yesterday but states he was too weak and did not have dialysis. Patient presents to the ED today complaining of increased generalized weakness. Patient did not think he was having any active bleeding. Patient does describe some intermittent chest pain and generalized weakness. Related Data Home Medications Medication Instructions Recorded Confirmed aspirin 81 mg tablet,delayed 81 mg PO DAILY 03/05/21 11/02/22 release (Adult Aspirin Regimen) albuterol sulfate 90 mcg/actuation 1 puff inhalation Q4H PRN Dyspnea 12/09/21 11/02/22 aerosol inhaler acetaminophen 650 mg 650 mg PO Q6H PRN Headache 09/02/22 11/02/22 tablet,extended release epoetin jase 10,000 unit/mL 8,000 unit IV 3XW 09/02/22 11/02/22 injection solution (Epogen) fexofenadine 180 mg tablet 180 mg PO DAILY 09/02/22 11/02/22 heparin pork See Rx Instructions .Route .COMPLEX 09/02/22 11/02/22 iron sucrose 50 mg iron/2.5 mL 100 mg IV WEEKLY 09/02/22 11/02/22 intravenous solution (Venofer) isosorbide mononitrate 30 mg 30 mg PO DAILY 09/02/22 11/02/22 tablet,extended release 24 hr lisinopril 20 mg tablet 20 mg PO BID 09/02/22 11/02/22 metoprolol succinate 100 mg 100 mg PO BID 09/02/22 11/02/22 tablet,extended release 24 hr mometasone 50 mcg/actuation nasal 1 spray intranasal DAILY 09/02/22 11/02/22 spray cefdinir 300 mg capsule 300 mg PO Q12H 10/28/22 11/02/22 hydralazine 100 mg tablet 100 mg PO TID 10/28/22 11/02/22 Allergies Allergy/AdvReac Type Severity Reaction Status Date / Time vitamin K2 AdvReac Shakiness Verified 11/02/22 18:16 Bumble Bee Allergy Severe hives Uncoded 11/02/22 18:16 Review of Systems Review of Systems: All systems reviewed & are unremarkable except as noted in HPI and below PMFSH Past Medical History Medical History Benign prostatic hyperplasia BiPAP (biphasic positive airway pressure) dependence Chest pain Coronary artery disease End-stage renal disease on hemodialysis Erythropoietin deficiency anemia Essential hypertension Gastroesophageal reflux disease Heart failure with reduced ejection fraction History of shingles Hyperparathyroidism due to renal insufficiency Nephrolithiasis Osteoarthritis of right knee Shift work sleep disorder Thyroid nodule incidentally noted on imaging study Vitamin D deficiency Surgical History Surgical History History of cardiac catheterization History of cystoscopy History of four vessel coronary artery bypass graft (02/2021) SMITH to LAD, SVG to PDA, OM 1, OM 2. History of melanoma excision (2004) Right neck. History of total right knee replacement (~02/2022) History of ureter stent S/P CABG x 4 Status post creation of arteriovenous fistula (05/2020) Family History Family History Sibling Diabetes mellitus half sister Mother Family history of arthritis Father Family history unknown Social History Social H
[2022-11-02] MEDS: SODIUM CHLORIDE 0.9% IV 250 ML 30 ML IV CONT (19:45)
[2022-11-02] MEDS: TUBING, BLOOD PLUM PUMP TUBING 1 EACH XX (19:55)
[2022-11-02] MEDS: PANTOPRAZOLE SODIUM IV 40 MG VIAL IV PUSH (21:00)
--- NOTE | 2022-11-02 21:08 | ADMGEN ---
This patient, Audi Rosenthal, was admitted to IMU Room 213-01. Patient/family oriented to hospital policies and general routines including ID bracelet, bed and alarms, visiting hours, pain management, procedures, bathroom and other care routines, personal items, smoking policy, room service/diet, and visiting hours. Information on how to activate the Rapid Response Team has been discussed. Patient/Family are encouraged to report perceived risks to care and to ask questions if they do not understand what they are told or what they should do.
[2022-11-02] MEDS: PANTOPRAZOLE SODIUM IV 80 MG in SODIUM CHLORIDE 0.9% IV 500 ML 50 MG IV CONT (21:52)
--- NOTE | 2022-11-02 23:20 | PM.IMHP ---
H&P: HPI History of Present Illness Date/Time: 11/02/22 19:30 Chief Complaint: Chest pain, dizziness, shortness of breath. Narrative: This is a pleasant 57-year-old male with coronary artery disease status post bypass, heart failure with reduced ejection fraction, hypertension, anemia, gastroesophageal reflux disease, and end-stage renal disease on hemodialysis presented to the emergency department via private vehicle from home for evaluation of chest pain, dizziness, and shortness of breath. He had a colonoscopy on October [address] Zhao and a benign colon polyp was removed. About 2 weeks after the procedure he went to [place] for a family function and while there he developed rectal bleeding. He was hospitalized at [facility] with an acute GI bleed at which time he was profoundly anemic, requiring 5 units of packed red blood cells. He had a colonoscopy and patient reports that a bleeding area was cauterized. He was discharged home but was readmitted within several days, once again for blood in the stools and an episode of hematemesis. He believes he had upper and lower endoscopies at that time, again with cautery of a bleeding vessel but he is uncertain where it was located. He received 3 units of blood during that hospitalization. He was discharged last Tuesday and he has been doing okay up until the last several days when he once again started to feel weak and dizzy. He is also having dyspnea on exertion and he has occasional mid chest pressure, not necessarily related to activity. He continues to have dark stools though that is not unusual for him as he is on iron supplementation. He denies fever, chills, sweats, pleuritic pain, palpitations, cold and flu symptoms, cough, nausea, vomiting, hematemesis, and hematochezia. Of note he has dialysis on Tuesday, Tuesday, and Tuesday but he missed yesterday due to feeling poorly. In the ED he was found to have a hemoglobin and hematocrit of 6.0 and 20.2% respectively. He is being admitted in this setting for blood transfusion and GI consultation as his stool was Hemoccult positive on [place]. At the time my evaluation he is not having any active chest discomfort. He has no known history of peptic ulcers. He is on aspirin daily, takes no other NSAIDs. Review of Systems Review of Systems: Twelve systems were reviewed and are negative except for as per HPI. [facility] Past Medical History Medical History (Updated 11/02/22 @ 23:34 by Sue Mack PA-C) Benign prostatic hyperplasia Chest pain Coronary artery disease End-stage renal disease on hemodialysis Erythropoietin deficiency anemia Essential hypertension Gastroesophageal reflux disease GI bleed Heart failure with reduced ejection fraction History of shingles Hyperparathyroidism due to renal insufficiency Nephrolithiasis Obstructive sleep apnea treated with BiPAP Osteoarthritis of right knee Shift work sleep disorder Thyroid nodule incidentally noted on imaging study Vitamin D deficiency Surgical History Surgical History (Updated 11/02/22 @ 23:31 by Sue Mack PA-C) History of cardiac catheterization History of cystoscopy History of four vessel coronary artery bypass graft (02/2021) SMITH to LAD, SVG to PDA, OM 1, OM 2. History of melanoma excision (2004) Right neck. History of total right knee replacement (02/2022) History of ureter stent Status post creation of arteriovenous fistula (05/2020) Family History Family History Sibling Diabetes mellitus half sister Mother Family history of arthritis Father Family history unknown Social History Social History Social History: Surrogate medical decision maker: Jennie Chau, significant other. Code status: Full code. Smoking status: Former smoker Tobacco type: cigars Alcohol intake: current Drinks per week: 1 Al
[2022-11-03] VITALS (42 sets, daily range): BP systolic 108–172; BP diastolic 52–91; PULSE 75–92; RESP 14–21; TEMP 36–37; O2SAT 95–100
[2022-11-03] MEDS: TUBING, BLOOD PLUM PUMP TUBING 1 EACH XX ×3 (00:05→10:40)
[2022-11-03] MEDS: ROSUVASTATIN 10 MG TABLET PO ×2 (00:33→20:56)
[2022-11-03] MEDS: FUROSEMIDE INJ 40 MG/4 ML VIAL 20 MG IV PUSH (00:45)
[2022-11-03] MEDS: SODIUM CHLORIDE 0.9% IV 250 ML 50 ML (02:00)
[2022-11-03 02:11] LABS: Hematocrit 21.1 % (42.0-52.0); Mean Corpuscular HGB Conc 31.8 g/dl (32-36); Mean Corpuscular Volume 91.3 fl (80-100); Mean Platelet Volume 8.7 fl (7.4-10.4); Platelet Count Result 213 k/mm3 (150-375); Red Blood Count 2.31 M/mm3 (4.6-6.20); Red Cell Distribution Width 19.5 % (11.5-14.5)
[2022-11-03 02:13] LABS: Hemoglobin 6.7 g/dL (14.0-18.0)
[2022-11-03 02:23] LABS: Anion Gap 9 mmol/L (8-16); Blood Urea Nitrogen 107 mg/dL (9-20); Calcium 7.7 mg/dL (8.4-10.2); Carbon Dioxide 17 mmol/L (22-30); Chloride 107 mmol/L (98-107); Estimated CRCL calculation 8 ml/min; Estimated Glomerular Filt Rate 5; Glucose 100 mg/dL (65-110); Phosphorus 7.1 mg/dL (2.5-4.5); Potassium 5.3 mmol/L (3.4-5.0); Sodium 133 mmol/L (137-145)
[2022-11-03 02:38] LABS: Troponin I < 0.012 ng/mL (0.000-0.034)
--- NOTE | 2022-11-03 06:57 | WPDGICN ---
Assessment and Plan Assessment and plan (1) GI bleed: Code(s): K92.2 - Gastrointestinal hemorrhage, unspecified Status: Acute Assessment and Plan: this patient has been admitted twice couple weeks ago with gastrointestinal bleeding an [facility] where he presented with rectal bleeding and he recalls some hematemesis as well. He had had a polypectomy 2 weeks prior to that at this institution and they told him that they cauterized the site of the bleeding which was supposedly where a large polyp was removed. He is a dialysis patient receives dialysis on Tuesday but he felt too weak to go to dialysis yesterday. He then came to the emergency room he was found to be again markedly anemic with a hemoglobin of 6. He is receiving 3 units of blood. His last hemoglobin is 6.7. He he had a hemoglobin of 10.3 in August but appears that his baseline is in the nines, likely due to his chronic kidney disease. EGD will be done this afternoon, after dialysis. (2) End-stage renal disease on hemodialysis: Code(s): N18.6 - End stage renal disease; Z99.2 - Dependence on renal dialysis Status: Acute Assessment and Plan: He has been on dialysis for little more than 2 years A states that this is secondary to hypertension and his cardiac disease. (3) Hyperkalemia: Code(s): E87.5 - Hyperkalemia Status: Acute Assessment and Plan: Admission potassium was 5.6 and repeat 5.3. he will be going to dialysis shortly which all to remedy his electrolyte it is. GI Consult Note Consult date/time: 11/03/22 06:57 HPI: Audi Rosenthal is a 57 year old male Sent to the emergency room with severe weakness. He was found to be markedly anemic. In he actually had a colonoscopy 4 weeks ago with removal of a large polyp. A week or so later he was with family in [place] when he developed lower gastrointestinal bleeding. He was hospitalized in [place], received 5 units of blood and had a colonoscopy with apparently cautery of the bleeding lesion. He states he also had some coffee-ground emesis at that time but does not recall if he had an EGD. He was discharged and a day after that procedure and then began passing more blood and was readmitted and received 3 more units of blood. He does not recall of any more interventions were done at that time . He has had no nausea or vomiting or abdominal pain in the past week. Review of Systems Review of Systems: All systems reviewed & are unremarkable except as noted in HPI and below PMFSH Past Medical History Medical History Benign prostatic hyperplasia Chest pain Coronary artery disease End-stage renal disease on hemodialysis Erythropoietin deficiency anemia Essential hypertension Gastroesophageal reflux disease GI bleed Heart failure with reduced ejection fraction History of shingles Hyperparathyroidism due to renal insufficiency Nephrolithiasis Obstructive sleep apnea treated with BiPAP Osteoarthritis of right knee Shift work sleep disorder Thyroid nodule incidentally noted on imaging study Vitamin D deficiency Surgical History Surgical History History of cardiac catheterization History of cystoscopy History of four vessel coronary artery bypass graft (02/2021) SMITH to LAD, SVG to PDA, OM 1, OM 2. History of melanoma excision (2004) Right neck. History of total right knee replacement (02/2022) History of ureter stent Status post creation of arteriovenous fistula (05/2020) Family History Family History Sibling Diabetes mellitus half sister Mother Family history of arthritis Father Family history unknown Social History Social History Social History: Surrogate medical decision maker: Jennie
[2022-11-03] MEDS: SODIUM CHLORIDE 0.9% IV 250 ML 30 ML IV CONT (07:28)
[2022-11-03] MEDS: FLUTICASONE/SALMETEROL 115-21 MCG INHALER 1 PUFF 2 PUFF INHALATION ×2 (08:59→20:10)
[2022-11-03 09:16] LABS: Hematocrit 27.7 % (42.0-52.0); Hemoglobin 8.8 g/dL (14.0-18.0)
[2022-11-03 10:15] LABS: Hepatitis B Surface Antigen Negative (Negative)
[2022-11-03] MEDS: EPOETIN ALFA-EPBX 10,000 UNITS/ML VIAL 10000 UNITS IV PUSH (10:18)
[2022-11-03 10:40] LABS: Hepatitis B Surface Anti Res Positive
--- NOTE | 2022-11-03 12:10 | PM.CNNEP ---
History of Present Illness Reason for Consult Consult date: 11/03/22 Reason for consult: end stage renal disease Chief Complaint Chief complaint: Upper GI Bleed,Anemia,End-stage Renal Disease,Hype History of Present Illness Narrative: The patient is a 57-year-old male with extensive past medical history as outlined below who presented to [facility] Emergency room for further evaluation of chest discomfort, dizziness, weakness, and shortness of breath. The patient was recently the in [facility] visiting family and friends when he developed rectal bleeding. He was hospitalized for this issue as an acute GI bleed and he was found to be severely anemic requiring almost 8 units of packed red blood cells over a period of two hospitalizations. He apparently had a colonoscopy done at that time which demonstrated some area of bleeding that was cauterized. He was subsequently discharged and eventually traveled backed to this area. He states he had been doing well when he got back in town but then in the last few days he started notice increasing dizziness, lightheadedness, and weakness in association with dyspnea on exertion. This was also coupled with mild chest discomfort as well. He denied any fevers, chills, diaphoresis, palpitations, nausea, vomiting, hematemesis, or hematochezia. Given the persistence of the symptoms at the events that occurred earlier in the month with regard to his previous GI bleed, he came to the ER for further assessment. Workup and evaluation in the emergency room demonstrated the patient to be hemodynamically stable but routine blood test demonstrated his hemoglobin hematocrit to be 6.0 in 20.2, respectively. He was noted to be guaiac-positive by rectal exam in the ER as well. Given his previous GI bleed issues when he was out of town and his subsequent presentation here at [facility] ER, he was typed and crossed for packed red blood cell transfusion and subsequently admitted to the hospital for further evaluation and therapy. Since his admission, he appears to be doing somewhat better following the packed red blood cell transfusions that he received overnight and is currently getting with his dialysis treatment. Renal consultation was requested due to his end-stage renal disease. The patient is quite familiar to me as I take care of his outpatient dialysis needs. The patient normally dialyzes on a Tuesday, Tuesday, Tuesday dialysis schedule at [facility] under my care. From a kidney perspective, he usually does quite well with his dialysis treatments although it should be noted that because of him not feeling very good, he did not receive his dialysis treatment on Tuesday. He does have some issues with regard to significant fluid gains in between dialysis treatments as well as some difficulty with phosphorus control but for the most part, he does reasonably well with dialysis in general. Currently, at the time my visit, the patient is receiving dialysis (seen on HD at 12:00 p.m.) and appears in no acute distress. Review of Systems Review of Systems: As per HPI. [facility] Past Medical History Medical History Benign prostatic hyperplasia Chest pain Coronary artery disease End-stage renal disease on hemodialysis Erythropoietin deficiency anemia Essential hypertension Gastroesophageal reflux disease GI bleed Heart failure with reduced ejection fraction History of shingles Hyperparathyroidism due to renal insufficiency Nephrolithiasis Obstructive sleep apnea treated with BiPAP Osteoarthritis of right knee Shift work sleep disorder Thyroid nodule incidentally noted on imaging study Vitamin D deficiency Surgical History Surgical History History of cardiac catheterization History of cystoscopy History of four vessel coronary artery bypass graft (02/2021) SMITH to LAD, SVG to P
--- NOTE | 2022-11-03 12:19 | PM.IMPN ---
Progress Note: A&P Assessment and Plan (1) GI bleed: Code(s): K92.2 - Gastrointestinal hemorrhage, unspecified Status: Acute Assessment and Plan: Continue pantoprazole. GI consulted -plan for EGD. (2) Profound anemia: Code(s): D64.9 - Anemia, unspecified Status: Acute Assessment and Plan: Acute blood loss on chronic anemia related to GI bleed. He will be transfused to a stable hemoglobin. Trend H&H. (3) Chest pain: Code(s): R07.9 - Chest pain, unspecified Status: Acute Assessment and Plan: Troponin negative. Monitor (4) Hyperkalemia: Code(s): E87.5 - Hyperkalemia Status: Acute Assessment and Plan: Patient missed dialysis yesterday as detailed above. He was treated appropriately for the hyperkalemia in the ED and repeat BMP is pending. Nephrology was consulted and urgent dialysis was not recommended. No EKG changes were noted. (5) Metabolic acidosis: Code(s): E87.20 - Acidosis, unspecified Status: Acute Assessment and Plan: Related to renal failure. Should improve with dialysis tomorrow. (6) End-stage renal disease on hemodialysis: Code(s): N18.6 - End stage renal disease; Z99.2 - Dependence on renal dialysis Status: Acute Assessment and Plan: Dr. Moses has been consulted for hemodialysis. (7) Obstructive sleep apnea treated with BiPAP: Code(s): G47.33 - Obstructive sleep apnea (adult) (pediatric) Status: Acute Assessment and Plan: BiPAP will be provided for the patient to use while hospitalized. (8) Heart failure with reduced ejection fraction: Code(s): I50.20 - Unspecified systolic (congestive) heart failure Status: Acute Assessment and Plan: Clinically compensated. Monitor volume status closely while transfusing. He will likely need Lasix between units. (9) Essential hypertension: Code(s): I10 - Essential (primary) hypertension Status: Acute Assessment and Plan: Blood pressures were reviewed and they are stable. Continue antihypertensives and monitor. (10) Coronary artery disease: Code(s): I25.10 - Atherosclerotic heart disease of [place] coronary artery without angina pectoris Status: Acute Assessment and Plan: Patient has been having chest pain as detailed above. Aspirin is on hold however given Hemoccult-positive stool and GI bleeding. Continue beta-yony and statin. Subjective Date/time seen: 11/03/22 12:19 Interval history: Vital signs stable. No new complaints. Exam Narrative: General: Mildly ill-appearing gentleman the semi-Beltrán position in bed. Weight: 70.1 kg. BMI: 23.4. HEENT: PERRL, EOMI. Sclera anicteric. Oral mucosa moist. Neck: Supple. Respiratory: Lungs are clear to auscultation bilaterally. Cardiovascular: Regular rate and rhythm with S1-S2. Systolic murmur verses radiation of fistula. Gastrointestinal: Abdomen is soft and nondistended with positive bowel sounds. He is tender to deeper palpation in the epigastric region. No guarding or rebound tenderness. Skin: Warm and dry with generalized pallor. Extremities: No cyanosis, clubbing, or edema. Radial and pedal pulses intact. Left upper extremity fistula with palpable thrill and bruit. Neurological: Alert. Cranial nerves 2-12 are grossly intact. No gross focal deficits to casual conversation. Psychiatric: Pleasant and cooperative with normal mood and affect. Judgment and insight intact. Objective Data Vital Signs Vital Signs: Vital Signs - 24 hr 11/02/22 16:50 11/02/22 15:28 11/02/22 18:05 Temperature 97.7 F Pulse Rate 92 81 82 Respiratory Rate 16 18 Blood Pressure 131/71 116/71 Pulse Oximetry 100 100 Oxygen Delivery 11/02/22 18:09 11/02/22 19:10 11/02/22 19:46 Temperature 98.3 F Pulse Rate 85 90 Respiratory Rate 18 16 Blood Pressure 132/82 123/58 L Pulse Oximet
--- NOTE | 2022-11-03 13:04 | PC.NURSE ---
Medical records from [facility] in [place], [place] received. Dr. Booth made aware.
--- NOTE | 2022-11-03 14:18 | WPDANESEPPF ---
Anes - Initial Pre Proc Eval Procedure: Operation Date: 11/03/22 15:00 Proposed Procedures p Esophagogastroduodenoscopy - Avelino Pham MD Date/Time: 11/03/22 14:18 Surgeon: Irineo Simon MD Pre Op Diagnosis: Upper GI Bleed,Anemia,End-stage Renal Disease,Hype Patient Data Age: 57 Gender: M Height: 1.83 m Weight: 78 kg Last Vital Signs Temp 97.8 F 11/03/22 14:15 Pulse 88 11/03/22 14:15 Resp 18 11/03/22 14:15 BP 115/52 L 11/03/22 14:15 Pulse Ox 97 11/03/22 14:15 O2 Del Method Room Air 11/03/22 14:15 Allergies Allergy/AdvReac Type Severity Reaction Status Date / Time vitamin K2 AdvReac Shakiness Verified 11/02/22 18:16 Bumble Bee Allergy Severe hives Uncoded 11/02/22 18:16 Home Medications Medication Instructions Recorded Confirmed Type aspirin 81 mg tablet,delayed 81 mg PO DAILY 03/05/21 11/02/22 History release (Adult Aspirin Regimen) albuterol sulfate 90 mcg/actuation 1 puff inhalation Q4H PRN Dyspnea 12/09/21 11/02/22 History aerosol inhaler fluticasone 250 mcg-salmeterol 50 1 inh inhalation BID #60 ea 06/15/22 11/02/22 Rx mcg/dose blistr powdr for inhalation (Advair Diskus) fluticasone propionate 50 2 spray intranasal BID #16 grams 06/15/22 11/02/22 Rx mcg/actuation nasal spray,suspension (Flonase Allergy Relief) furosemide 80 mg tablet (Lasix) 80 mg PO QAM #90 tabs 06/15/22 11/02/22 Rx rosuvastatin 10 mg tablet (Crestor) 10 mg PO QHS #90 tabs 06/15/22 11/02/22 Rx acetaminophen 650 mg 650 mg PO Q6H PRN Headache 09/02/22 11/02/22 History tablet,extended release epoetin jase 10,000 unit/mL 8,000 unit IV 3XW 09/02/22 11/02/22 History injection solution (Epogen) fexofenadine 180 mg tablet 180 mg PO DAILY 09/02/22 11/02/22 History heparin pork See Rx Instructions .Route .COMPLEX 09/02/22 11/02/22 History iron sucrose 50 mg iron/2.5 mL 100 mg IV WEEKLY 09/02/22 11/02/22 History intravenous solution (Venofer) isosorbide mononitrate 30 mg 30 mg PO DAILY 09/02/22 11/02/22 History tablet,extended release 24 hr lisinopril 20 mg tablet 20 mg PO BID 09/02/22 11/02/22 History metoprolol succinate 100 mg 100 mg PO BID 09/02/22 11/02/22 History tablet,extended release 24 hr mometasone 50 mcg/actuation nasal 1 spray intranasal DAILY 09/02/22 11/02/22 History spray cefdinir 300 mg capsule 300 mg PO Q12H 10/28/22 11/02/22 History hydralazine 100 mg tablet 100 mg PO TID 10/28/22 11/02/22 History Laboratory Tests 11/02/22 11/02/22 11/02/22 17:05 18:08 18:59 WBC 7.6 K/mm3 (4.5-10.0) RBC 2.08 L M/mm3 (4.6-6.20) Hgb 6.0 L* D g/dL (14.0-18.0) Hct 20.2 L* % (42.0-52.0) MCV 97.1 fl (80-100) MCH 28.8 pg (26-34) MCHC 29.7 L g/dl (32-36) RDW 19.8 H % (11.5-14.5) Plt Count 259 k/mm3 (150-375) MPV 9.0 fl (7.4-10.4) Immature Gran % (Auto) 1.3 H % (0-0.5) Neut % (Auto) 75.5 H % (45.5-73.1) Lymph % (Auto) 13.0 L % (18.3-44.2) Ballard % (Auto) 7.0 % (2.6-8.5) Eos % (Auto) 2.4 % (0-4.4) Baso % (Auto) 0.8 % (0.2-1.2) Lymph # (Auto) 0.98 K/mm3 (0.9-3.2) Ballard # (Auto) 0.5 K/mm3 (0.1-0.6) Eos # (Auto) 0.2 K/mm3 (0-0.3) Baso # (Auto) 0.1 K/mm3 (0.0-0.1) Abs Immat Gran (auto) 0.10 H K/mm3 (0.00-0.031) Absolute Neuts (auto) 5.7 K/mm3 (1.3-6.7) Absolute Nucleated RBC 0.0 K/mm3 (0.0-0.012) Nucleated RBC % 0.0 % (0.0-0.2) Platelet Estimate Adequate (Adequate) Hypochromasia 1+ (NORMAL) Schistocytes None seen (NORMAL) PT 14.5 Seconds (11.1-14.7) INR 1.1 APTT 34.0 SECONDS (22.3-36.8) Sodium 135 L mmol/L (137-145) Potassium 5.6 H mmol/L (3.4-5.0) Chloride 104 mmol/L (98-107
[2022-11-03] MEDS: ceFAZolin 1 GM/NS 50 ML 1 GM/50 ML BAG IVPB (14:19)
[2022-11-03] MEDS: SODIUM CHLORIDE 0.9% IV 500 ML 10 ML IV CONT (14:23)
[2022-11-03] MEDS: FLUTICASONE PROPIONATE 0.05% NA SPR 16 GM BTL (*BKC) 1 SPRAY NASAL (18:10)
[2022-11-03] MEDS: hydrALAZINE HCL 50 MG TABLET 100 MG PO (18:10)
[2022-11-03] MEDS: LORATADINE 10 MG TABLET PO (18:10)
[2022-11-03 18:48] LABS: Hematocrit 27.6 % (42.0-52.0); Hemoglobin 8.9 g/dL (14.0-18.0)
[2022-11-04] VITALS (12 sets, daily range): BP systolic 114–154; BP diastolic 55–80; PULSE 80–98; RESP 16–20; TEMP 36.3–36.9; O2SAT 93–100
[2022-11-04 06:56] LABS: Basophils Absolute Auto 0.1 K/mm3 (0.0-0.1); Basophils Percent Auto 1.1 % (0.2-1.2); Eosinophils Absolute Auto 0.2 K/mm3 (0-0.3); Eosinophils Percent Auto 2.5 % (0-4.4); Hematocrit 28.1 % (42.0-52.0); Immature Granulocyte Absolute 0.06 K/mm3 (0.00-0.031); Lymphocytes Absolute Auto 0.98 K/mm3 (0.9-3.2); Mean Corpuscular Hemoglobin 28.8 pg (26-34); Mean Corpuscular Volume 90.1 fl (80-100); Mean Platelet Volume 9.1 fl (7.4-10.4); Monocytes Absolute Auto 0.6 K/mm3 (0.1-0.6); Neutrophils Absolute Auto 4.3 K/mm3 (1.3-6.7); Neutrophils Percent Auto 70.4 % (45.5-73.1); Platelet Count Result 199 k/mm3 (150-375); Red Blood Count 3.12 M/mm3 (4.6-6.20); Red Cell Distribution Width 19.5 % (11.5-14.5); White Blood Count 6.1 K/mm3 (4.5-10.0)
[2022-11-04 07:08] LABS: Anion Gap 8 mmol/L (8-16); Blood Urea Nitrogen 50 mg/dL (9-20); Calcium 7.8 mg/dL (8.4-10.2); Carbon Dioxide 27 mmol/L (22-30); Chloride 102 mmol/L (98-107); Estimated CRCL calculation 13 ml/min; Estimated Glomerular Filt Rate 9; Glucose 86 mg/dL (65-110); Potassium 4.6 mmol/L (3.4-5.0); Sodium 137 mmol/L (137-145)
[2022-11-04] MEDS: FLUTICASONE/SALMETEROL 115-21 MCG INHALER 1 PUFF 2 PUFF INHALATION ×2 (08:22→19:53)
[2022-11-04] MEDS: FLUTICASONE PROPIONATE 0.05% NA SPR 16 GM BTL (*BKC) 1 SPRAY NASAL ×2 (09:39→17:30)
[2022-11-04] MEDS: hydrALAZINE HCL 50 MG TABLET 100 MG PO ×3 (09:40→17:30)
[2022-11-04] MEDS: FUROSEMIDE 80 MG TABLET PO (09:40)
[2022-11-04] MEDS: PANTOPRAZOLE SODIUM IV 40 MG VIAL IV PUSH (09:40)
[2022-11-04] MEDS: ISOSORBIDE MONONITRATE 30 MG TAB.ER.24H PO (09:40)
[2022-11-04] MEDS: LORATADINE 10 MG TABLET PO (09:40)
--- NOTE | 2022-11-04 11:52 | PM.IMPN ---
Progress Note: A&P Assessment and Plan (1) GI bleed: Code(s): K92.2 - Gastrointestinal hemorrhage, unspecified Status: Acute Assessment and Plan: Continue pantoprazole. EGD noted. (2) Profound anemia: Code(s): D64.9 - Anemia, unspecified Status: Acute Assessment and Plan: Acute blood loss on chronic anemia related to GI bleed. He will be transfused to a stable hemoglobin. Trend H&H. (3) Chest pain: Code(s): R07.9 - Chest pain, unspecified Status: Acute Assessment and Plan: Troponin negative. Monitor (4) Hyperkalemia: Code(s): E87.5 - Hyperkalemia Status: Acute Assessment and Plan: Patient missed dialysis yesterday as detailed above. He was treated appropriately for the hyperkalemia in the ED and repeat BMP is pending. Nephrology was consulted and urgent dialysis was not recommended. No EKG changes were noted. (5) Metabolic acidosis: Code(s): E87.20 - Acidosis, unspecified Status: Acute Assessment and Plan: Related to renal failure. Should improve with dialysis tomorrow. (6) End-stage renal disease on hemodialysis: Code(s): N18.6 - End stage renal disease; Z99.2 - Dependence on renal dialysis Status: Acute Assessment and Plan: Dr. Moses has been consulted for hemodialysis. (7) Obstructive sleep apnea treated with BiPAP: Code(s): G47.33 - Obstructive sleep apnea (adult) (pediatric) Status: Acute Assessment and Plan: BiPAP will be provided for the patient to use while hospitalized. (8) Heart failure with reduced ejection fraction: Code(s): I50.20 - Unspecified systolic (congestive) heart failure Status: Acute Assessment and Plan: Clinically compensated. Monitor volume status closely while transfusing. He will likely need Lasix between units. (9) Essential hypertension: Code(s): I10 - Essential (primary) hypertension Status: Acute Assessment and Plan: Blood pressures were reviewed and they are stable. Continue antihypertensives and monitor. (10) Coronary artery disease: Code(s): I25.10 - Atherosclerotic heart disease of [place] coronary artery without angina pectoris Status: Acute Assessment and Plan: Patient has been having chest pain as detailed above. Aspirin is on hold however given Hemoccult-positive stool and GI bleeding. Continue beta-yony and statin. Subjective Date/time seen: 11/04/22 11:52 Interval history: No complaints Exam Narrative: General: Mildly ill-appearing gentleman the semi-Beltrán position in bed. Weight: 70.1 kg. BMI: 23.4. HEENT: PERRL, EOMI. Sclera anicteric. Oral mucosa moist. Neck: Supple. Respiratory: Lungs are clear to auscultation bilaterally. Cardiovascular: Regular rate and rhythm with S1-S2. Systolic murmur verses radiation of fistula. Gastrointestinal: Abdomen is soft and nondistended with positive bowel sounds. He is tender to deeper palpation in the epigastric region. No guarding or rebound tenderness. Skin: Warm and dry with generalized pallor. Extremities: No cyanosis, clubbing, or edema. Radial and pedal pulses intact. Left upper extremity fistula with palpable thrill and bruit. Neurological: Alert. Cranial nerves 2-12 are grossly intact. No gross focal deficits to casual conversation. Psychiatric: Pleasant and cooperative with normal mood and affect. Judgment and insight intact. Objective Data Vital Signs Vital Signs: Vital Signs - 24 hr 11/03/22 12:00 11/03/22 12:05 11/03/22 12:20 Temperature Pulse Rate 84 85 87 Respiratory Rate Blood Pressure 160/91 H 162/86 H 172/87 H Pulse Oximetry Oxygen Delivery 11/03/22 12:40 11/03/22 12:00 11/03/22 14:15 Temperature 97.8 F Pulse Rate 84 83 88 Respiratory Rate 18 Blood Pressure 168/87 H 115/52 L Pulse Oximetry 97 Oxygen Delivery Room Air 10/06
--- NOTE | 2022-11-04 12:40 | PC.NURSE ---
This patient, Audi Rosenthal, was transferred to [facility] on 11/04/22 at 1240. Personal belongings sent with patient. Report given to REVA Gallegos. Appropriate documentation sent with patient.
--- NOTE | 2022-11-04 12:51 | PC.NURSE ---
This patient, Audi Rosenthal, was received from [[id number]] on 11/04/22 at 1251. Patient/family oriented to unit policies and routines.
[2022-11-04 13:09] LABS: Partial Thromboplastin Time 36.1 SECONDS (22.3-36.8)
--- NOTE | 2022-11-04 13:20 | PM.PNNEP ---
Progress Note: A&P Assessment and Plan (1) End-stage renal disease on hemodialysis: Code(s): N18.6 - End stage renal disease; Z99.2 - Dependence on renal dialysis Status: Acute Assessment and Plan: HD tomorrow follow electrolytes, volume status, and clearance (2) GI bleed: Code(s): K92.2 - Gastrointestinal hemorrhage, unspecified Status: Chronic Assessment and Plan: acute on chronic GI following s/p EGD with findings of possible duodenal erosions but no active bleeding H/H stable following PRBC transfusion high dose Epogen with HD (3) Hyperkalemia: Code(s): E87.5 - Hyperkalemia Status: Acute Assessment and Plan: elevated on admission due to missed HD treatment and possible GI bleed corrected with dialysis follow trend (4) Heart failure with reduced ejection fraction: Code(s): I50.20 - Unspecified systolic (congestive) heart failure Status: Acute Assessment and Plan: appears compented at this time fluid removal with HD to maintain euvolemia (5) Essential hypertension: Code(s): I10 - Essential (primary) hypertension Status: Chronic Assessment and Plan: reasonable control at this time follow trend of hemodynamics Will continue to follow. Subjective Date/time seen: 11/04/22 13:20 Interval history: Follow-up for end stage renal disease on hemodialysis and anemia. Tolerated hemodialysis treatment as well as PRBC transfusion yesterday without any issues or problems; s/p EGD with findings noted with no signs of active bleeding; H/H doing better blood transfusion; no other acute issues/events noted overnight or earlier this morning. Exam Narrative: General: WD/WN male in NAD Heart: normal S1 and S2; no rub Lungs: clear to auscultation Abdomen: soft, nontender, nondistended, positive bowel sounds Extremities: no cyanosis or clubbing; trace edema Skin: warm and dry Objective Data Vital Signs Vital Signs: Vital Signs Temp Pulse Resp BP Pulse Ox O2 Del Method 11/04/22 12:01 114/65 11/04/22 10:00 88 11/04/22 08:00 85 11/04/22 08:00 93 Room Air 11/04/22 08:00 98.5 F 84 16 140/80 97 11/04/22 08:25 93 Room Air 11/04/22 04:00 97.8 F 80 20 154/76 H 97 11/04/22 04:00 85 11/04/22 02:00 89 11/04/22 04:00 93 20 98 Room Air 11/04/22 00:00 93 11/03/22 22:00 92 11/04/22 00:00 89 20 98 Room Air 11/03/22 23:05 Autopap 11/03/22 23:32 97.9 F 89 20 146/80 H 98 11/03/22 20:00 86 11/03/22 20:00 91 18 97 Room Air 11/03/22 20:35 91 97 Room Air 11/03/22 20:00 97.9 F 87 18 134/70 98 11/03/22 16:00 99 Room Air 11/03/22 18:00 89 11/03/22 16:00 98.6 F 88 20 144/74 H 99 11/03/22 15:09 85 21 H 117/61 97 Room Air 11/03/22 14:59 84 17 120/63 98 Room Air 11/03/22 14:49 87 21 H 112/63 97 Room Air 11/03/22 13:22 98.0 F 89 18 164/91 H 96 11/03/22 14:15 97.8 F 88 18 115/52 L 97 Room Air Intake/Output Intake/Output: Intake & Output 11/01/22 11/02/22 11/03/22 11/04/22 23:59 23:59 23:59 23:59 Intake Total 350 1265 610 Output Total 3500 1050 Balance 443 -8929 -377 Meds/Results Medications: Active Medications Generic Name Dose Route Start Last Admin Trade Name Freq PRN Reason Stop Dose Admin Acetaminophen 650 mg 11/02/22 23:45 Acetaminophen 325 Mg Tablet PO Q6H PRN Headache Albuterol 2 puff 11/02/22 23:45 Albuterol Sulfate (*Sp) Aerosol 1 Puff INHALATION Q4H PRN Dyspnea Aspirin 81 mg 11/03/22 09:00 11/03/22 16:52 Aspirin 81 Mg Enteric Tablet PO Not Given DAILY TOM Dextrose 12.5 gm 11/02/22 18:55 Dextrose 50% 25 Gm/50 Ml Syringe IV PUSH PRN PRN Hypoglycemia Protocol Fluticasone Propionate 1 spray 11/03/22 09:00 11/04/22 09:
--- NOTE | 2022-11-04 15:52 | WPDGIPROGNO ---
Progress Note: A&P Assessment and Plan (1) GI bleed: Code(s): K92.2 - Gastrointestinal hemorrhage, unspecified Status: Acute Assessment and Plan: this patient has been admitted twice couple weeks ago with gastrointestinal bleeding an [facility] where he presented with rectal bleeding and he recalls some hematemesis as well. He had had a polypectomy 2 weeks prior to that at this institution and they told him that they cauterized the site of the bleeding which was supposedly where a large polyp was removed. He is a dialysis patient receives dialysis on Tuesday but he felt too weak to go to dialysis yesterday. He then came to the emergency room he was found to be again markedly anemic with a hemoglobin of 6. He is receiving 3 units of blood. His last hemoglobin is 6.7. He he had a hemoglobin of 10.3 in August but appears that his baseline is in the nines, likely due to his chronic kidney disease. EGD Done yesterday revealed multiple areas of what looked like erosion in the duodenum, somewhat bulge areas devoid of villi. I did obtain multiple biopsies which is still pending. There was however no active bleeding seen in his upper gastrointestinal tract. Hemoglobin has come up to 9.0 (2) End-stage renal disease on hemodialysis: Code(s): N18.6 - End stage renal disease; Z99.2 - Dependence on renal dialysis Status: Acute Assessment and Plan: He has been on dialysis for little more than 2 years A states that this is secondary to hypertension and his cardiac disease. Creatinine has come down from 10.3 yesterday to 6.5 today. (3) Hyperkalemia: Code(s): E87.5 - Hyperkalemia Status: Acute Assessment and Plan: Admission potassium was 5.6 and repeat 5.3. he will be going to dialysis shortly which all to remedy his electrolyte it is. down to 4.6 today. Plan From my perspective he can be discharged as there is no evidence of active bleeding. I will be in contact with him regarding results of his biopsies and I would like him to be discharged on pantoprazole 40 mg daily. Subjective Date/time seen: 11/04/22 15:52 he tolerated his diet last night. He is having no abdominal pain. He has seen no blood in his stools and has not had a bowel movement since last night. Hemoglobin is stable. I discussed with him results of his EGD that revealed multiple superficial ulcerations or erosions in the duodenum. Biopsies are pending. Exam Const: General: cooperative and healthy appearing Orientation/consciousness: patient oriented x3 HENMT: Head: normal to inspection Ears: hearing grossly normal bilaterally Mouth: Yes Normal oral and palatal mucosa present Eyes: General: appearance normal, both eyes and all related structures Neck: Neck: normal visual inspection Chest: Chest palpation & inspection: normal inspection of the chest Resp: Effort & Inspection: normal respiratory effort Auscultation: clear to auscultation bilaterally Cardio: Rate: regular rate Rhythm: regular rhythm GI: Inspection: normal to inspection GI Palp: Yes No hepatosplenomegaly present Auscultation: normal bowel sounds Skin: General skin exam: normal color and no jaundice Neuro: General: patient oriented x3 Speech: normal speech Objective Data Vital Signs Vital Signs: Vital Signs - 24 hr 11/03/22 16:00 11/03/22 18:00 11/03/22 16:00 Temperature 37.0 C Pulse Rate 88 89 Respiratory Rate 20 Blood Pressure 144/74 H Pulse Oximetry 99 99 Oxygen Delivery Room Air 11/03/22 20:00 11/03/22 20:35 11/03/22 20:00 Temperature 36.6 C Pulse Rate 87 91 91 Respiratory Rate 18 18 Blood Pressure 134/70 Pulse Oximetry 98 97 97 Oxygen Delivery Room Air Room Air 11/03/22 20:00 11/03/22 23:32 11/03/22 23:05 Temperature 36.6 C Pulse Rate 86 89 Respiratory Rate 20 Blood Pressure 146/80 H Pulse Oximetry 98 Oxygen Delivery Autopap 11/04/22
[2022-11-04] MEDS: ROSUVASTATIN 10 MG TABLET PO (20:37)
[2022-11-05] VITALS (16 sets, daily range): BP systolic 126–156; BP diastolic 67–88; PULSE 86–98; RESP 15–18; TEMP 35.7–36.7; O2SAT 97–99
[2022-11-05 06:41] LABS: Basophils Absolute Auto 0.1 K/mm3 (0.0-0.1); Basophils Percent Auto 1.1 % (0.2-1.2); Eosinophils Absolute Auto 0.2 K/mm3 (0-0.3); Eosinophils Percent Auto 2.8 % (0-4.4); Hematocrit 28.2 % (42.0-52.0); Hemoglobin 8.7 g/dL (14.0-18.0); Immature Granulocyte Absolute 0.05 K/mm3 (0.00-0.031); Immature Granulocyte Percent A 0.8 % (0-0.5); Lymphocytes Absolute Auto 0.93 K/mm3 (0.9-3.2); Mean Corpuscular HGB Conc 30.9 g/dl (32-36); Mean Corpuscular Hemoglobin 28.5 pg (26-34); Mean Corpuscular Volume 92.5 fl (80-100); Mean Platelet Volume 9.1 fl (7.4-10.4); Monocytes Absolute Auto 0.5 K/mm3 (0.1-0.6); Monocytes Percent Auto 7.9 % (2.6-8.5); Neutrophils Absolute Auto 4.5 K/mm3 (1.3-6.7); Neutrophils Percent Auto 72.4 % (45.5-73.1); Platelet Count Result 196 k/mm3 (150-375); Red Blood Count 3.05 M/mm3 (4.6-6.20); Red Cell Distribution Width 19.2 % (11.5-14.5); White Blood Count 6.2 K/mm3 (4.5-10.0)
[2022-11-05 06:45] LABS: Anion Gap 12 mmol/L (8-16); Blood Urea Nitrogen 55 mg/dL (9-20); Calcium 8.1 mg/dL (8.4-10.2); Carbon Dioxide 22 mmol/L (22-30); Chloride 102 mmol/L (98-107); Estimated CRCL calculation 10 ml/min; Estimated Glomerular Filt Rate 7; Glucose 83 mg/dL (65-110); Potassium 4.4 mmol/L (3.4-5.0); Sodium 136 mmol/L (137-145)
[2022-11-05] MEDS: FLUTICASONE/SALMETEROL 115-21 MCG INHALER 1 PUFF 2 PUFF INHALATION (07:37)
[2022-11-05] MEDS: PANTOPRAZOLE SODIUM IV 40 MG VIAL IV PUSH (08:20)
[2022-11-05] MEDS: ISOSORBIDE MONONITRATE 30 MG TAB.ER.24H PO (08:20)
[2022-11-05] MEDS: FLUTICASONE PROPIONATE 0.05% NA SPR 16 GM BTL (*BKC) 1 SPRAY NASAL (08:20)
[2022-11-05] MEDS: LORATADINE 10 MG TABLET PO (08:20)
--- NOTE | 2022-11-05 08:23 | PC.NURSE ---
Asked the dialysis nurse if the patient should receive morning dose of hydralazine and Lasix prior to dialysis, she checked with the provider and called back and stated to hold both doses.
--- NOTE | 2022-11-05 11:41 | PM.PNNEP ---
Progress Note: A&P Assessment and Plan (1) End-stage renal disease on hemodialysis: Code(s): N18.6 - End stage renal disease; Z99.2 - Dependence on renal dialysis Status: Acute Assessment and Plan: HD today follow electrolytes, volume status, and clearance (2) GI bleed: Code(s): K92.2 - Gastrointestinal hemorrhage, unspecified Status: Chronic Assessment and Plan: acute on chronic GI following s/p EGD with findings of possible duodenal erosions but no active bleeding H/H stable following PRBC transfusion high dose Epogen with HD (3) Hyperkalemia: Code(s): E87.5 - Hyperkalemia Status: Acute Assessment and Plan: elevated on admission due to missed HD treatment and possible GI bleed corrected with dialysis follow trend (4) Heart failure with reduced ejection fraction: Code(s): I50.20 - Unspecified systolic (congestive) heart failure Status: Acute Assessment and Plan: appears compented at this time fluid removal with HD to maintain euvolemia (5) Essential hypertension: Code(s): I10 - Essential (primary) hypertension Status: Chronic Assessment and Plan: reasonable control at this time follow trend of hemodynamics Will continue to follow. Subjective Date/time seen: 11/05/22 11:41 Interval history: Follow-up for end stage renal disease on hemodialysis and anemia. Tolerating hemodialysis treatment at the time of my visit (seen on HD treatment at 11:30AM); H/H appears relatively stable; no other acute issues/events overnight or earlier this moring; no concerns voiced currently. Exam Narrative: General: WD/WN male in NAD Heart: normal S1 and S2; no rub Lungs: clear to auscultation Abdomen: soft, nontender, nondistended, positive bowel sounds Extremities: no cyanosis or clubbing; trace edema Skin: warm and intact Objective Data Vital Signs Vital Signs: Vital Signs Temp Pulse Resp BP Pulse Ox O2 Del Method 11/05/22 11:40 87 126/67 11/05/22 11:20 92 135/70 11/05/22 11:00 93 135/70 11/05/22 10:40 93 129/75 11/05/22 10:20 98 146/80 H 11/05/22 09:57 93 133/75 11/05/22 09:45 98.0 F 96 15 137/80 11/05/22 08:00 Room Air 11/05/22 07:42 97 Room Air 11/05/22 06:00 97.7 F 92 18 128/70 99 11/04/22 20:00 98 18 97 Room Air 11/04/22 22:00 98 F 98 18 138/60 97 11/04/22 19:52 98 Room Air Intake/Output Intake/Output: Intake & Output 11/02/22 11/03/22 11/04/22 11/05/22 23:59 23:59 23:59 23:59 Intake Total 350 1615 1850 716 Output Total 3500 1050 2000 Balance 350 -7225 126 -0790 Meds/Results Radiology Results: ITS Impressions Chest X-Ray 11/02/22 16:41 IMPRESSION: 1. Stable small left pleural effusion. 2. Stable airspace opacities in left mid and lower lung zones, consistent with atelectasis or less likely pneumonia. 3. Cardiomegaly. Labs Labs: Laboratory Tests 11/05/22 05:50 11/05/22 05:50
--- NOTE | 2022-11-05 12:00 | PM.DS ---
DS: Admitting Diagnosis Discharge Date November 05, 2022 Admitting Diagnosis GI bleed DS: Discharge Diagnosis Discharge Diagnosis (1) GI bleed: Code(s): K92.2 - Gastrointestinal hemorrhage, unspecified Status: Acute Assessment and Plan: Continue pantoprazole. EGD noted. (2) Profound anemia: Code(s): D64.9 - Anemia, unspecified Status: Acute Assessment and Plan: Acute blood loss on chronic anemia related to GI bleed. He will be transfused to a stable hemoglobin. Trend H&H. (3) Chest pain: Code(s): R07.9 - Chest pain, unspecified Status: Acute Assessment and Plan: Troponin negative. Monitor (4) Hyperkalemia: Code(s): E87.5 - Hyperkalemia Status: Acute Assessment and Plan: Patient missed dialysis yesterday as detailed above. He was treated appropriately for the hyperkalemia in the ED and repeat BMP is pending. Nephrology was consulted and urgent dialysis was not recommended. No EKG changes were noted. (5) Metabolic acidosis: Code(s): E87.20 - Acidosis, unspecified Status: Acute Assessment and Plan: Related to renal failure. Should improve with dialysis tomorrow. (6) End-stage renal disease on hemodialysis: Code(s): N18.6 - End stage renal disease; Z99.2 - Dependence on renal dialysis Status: Acute Assessment and Plan: Dr. Moses has been consulted for hemodialysis. (7) Obstructive sleep apnea treated with BiPAP: Code(s): G47.33 - Obstructive sleep apnea (adult) (pediatric) Status: Acute Assessment and Plan: BiPAP will be provided for the patient to use while hospitalized. (8) Heart failure with reduced ejection fraction: Code(s): I50.20 - Unspecified systolic (congestive) heart failure Status: Acute Assessment and Plan: Clinically compensated. Monitor volume status closely while transfusing. He will likely need Lasix between units. (9) Essential hypertension: Code(s): I10 - Essential (primary) hypertension Status: Acute Assessment and Plan: Blood pressures were reviewed and they are stable. Continue antihypertensives and monitor. (10) Coronary artery disease: Code(s): I25.10 - Atherosclerotic heart disease of [place] coronary artery without angina pectoris Status: Acute Assessment and Plan: Patient has been having chest pain as detailed above. Aspirin is on hold however given Hemoccult-positive stool and GI bleeding. Continue beta-yony and statin. DS: Summary Hospital Course Hospital Course: Patient is a 57-year-old gentleman who came in with anemia and GI bleed. He also has end-stage renal disease and receives hemodialysis in the hospital. Ultimately had an EGD which showed erosions of the small bowel. Patient will PPI on discharge. Follow-up with GI as needed. Time Spent with Patient Time attestation: Total time spent providing and/or coordinating discharge services: Exam Narrative: General: Mildly ill-appearing gentleman the semi-Beltrán position in bed. Weight: 70.1 kg. BMI: 23.4. HEENT: PERRL, EOMI. Sclera anicteric. Oral mucosa moist. Neck: Supple. Respiratory: Lungs are clear to auscultation bilaterally. Cardiovascular: Regular rate and rhythm with S1-S2. Systolic murmur verses radiation of fistula. Gastrointestinal: Abdomen is soft and nondistended with positive bowel sounds. He is tender to deeper palpation in the epigastric region. No guarding or rebound tenderness. Skin: Warm and dry with generalized pallor. Extremities: No cyanosis, clubbing, or edema. Radial and pedal pulses intact. Left upper extremity fistula with palpable thrill and bruit. Neurological: Alert. Cranial nerves 2-12 are grossly intact. No gross focal deficits to casual conversation. Psychiatric: Pleasant and cooperative with normal mood and affect. Judgment and insight intact. DS: Data
--- NOTE | 2022-11-05 13:57 | PC.NURSE ---
Pt transferred to dialysis at 0930 and transferred back to the floor at 1350.
== END 2022-11-05 14:30 | disposition home or self-care (01) ==
LOC: ANHED 17:59 → ANHIMU 23:10 → ANH3MEDSUR 11-04 23:24 → ANHIMU 11-08 10:34
PROVIDERS: Family Medicine; Internal Medicine Gastroenterology; Internal Medicine Nephrology; Physician Assistant; Admitting Provider Internal Medicine; Emergency Provider Emergency Medicine; PCP Family Medicine; Visit Provider Chiropractor
PROC: 0DJ08ZZ Inspection of Upper Intestinal Tract, Via Natural or Artificial Opening Endoscopic (ICD-10-PCS; CPT 43235; principal; 2022-11-03 15:00)
DX: K21.9 Gastro-esophageal reflux disease without esophagitis (principal); K29.80 Duodenitis without bleeding; R53.1 Weakness; R07.9 Chest pain, unspecified; E87.5 Hyperkalemia; D63.1 Anemia in chronic kidney disease; I13.2 Hypertensive heart and chronic kidney disease with heart failure and with stage 5 chronic kidney disease, or end stage renal disease; N18.6 End stage renal disease; I50.22 Chronic systolic (congestive) heart failure; E21.3 Hyperparathyroidism, unspecified; I25.10 Atherosclerotic heart disease of native coronary artery without angina pectoris; E87.20 Acidosis, unspecified; R91.8 Other nonspecific abnormal finding of lung field; E55.9 Vitamin D deficiency, unspecified; G47.33 Obstructive sleep apnea (adult) (pediatric); Z99.89 Dependence on other enabling machines and devices; Z95.1 Presence of aortocoronary bypass graft; Z99.2 Dependence on renal dialysis; Z87.891 Personal history of nicotine dependence; F10.90 Alcohol use, unspecified, uncomplicated; Z79.82 Long term (current) use of aspirin; Z79.51 Long term (current) use of inhaled steroids; Z79.1 Long term (current) use of non-steroidal anti-inflammatories (NSAID); Z79.899 Other long term (current) drug therapy
CPT/HCPCS: 43239; 36415; 36430; 71046; 80048; 80053; 83690; 83735; 84100; 84484; 85014; 85018; 85025; 85027; 85610; 85730; 86706; 86850; 86900; 86901; 86923; 87340; 88305; 93005; 94640; 96361; 96374; 96375; 96376; 99285; A9270; C9113; G0257; G0378; J0690; J1644; J1815; J1940; J2704; J7030; J7040; J7050; P9016; Q5105

== ENCOUNTER 2022-11-24 15:26 | Emergency (ER) | payer OTHER, SELFPAY ==
[2022-11-24] VITALS (10 sets, daily range): BP systolic 138–149; BP diastolic 79–91; PULSE 81–98; RESP 14–19; TEMP 36.3; O2SAT 93–98
--- NOTE | 2022-11-24 15:43 | ECG_ITS ---
Measurements Intervals [place] Rate: 95 P: 61 IN: 218 QRS: 38 QRSD: 102 T: 53 QT: 392 QTc: 493 Interpretive Statements SINUS RHYTHM WITH FIRST DEGREE AV BLOCK POSSIBLE LEFT VENTRICULAR HYPERTROPHY [VOLTAGE CRITERIA PLUS LAE OR QRS WIDENING] WITH SECONDARY REPOLARIZATION ABNORMALITY ABNORMAL ECG COMPARED TO ECG 11/02/2022 16:09:40 SLIGHTLY LONGER IN INTERVAL Electronically Signed On 11-26-2022 16:07:59 CDT by Deandre Walker M.D.
[2022-11-24 16:01] LABS: Basophils Percent Auto 0.8 % (0.2-1.2); Eosinophils Absolute Auto 0.2 K/mm3 (0-0.3); Eosinophils Percent Auto 4.9 % (0-4.4); Hematocrit 29.8 % (42.0-52.0); Hemoglobin 9.5 g/dL (14.0-18.0); Immature Granulocyte Absolute 0.01 K/mm3 (0.00-0.031); Immature Granulocyte Percent A 0.3 % (0-0.5); Lymphocytes Absolute Auto 0.71 K/mm3 (0.9-3.2); Lymphocytes Percent Auto 18.2 % (18.3-44.2); Mean Corpuscular HGB Conc 31.9 g/dl (32-36); Mean Corpuscular Hemoglobin 27.8 pg (26-34); Mean Corpuscular Volume 87.1 fl (80-100); Monocytes Absolute Auto 0.4 K/mm3 (0.1-0.6); Monocytes Percent Auto 11.3 % (2.6-8.5); Neutrophils Absolute Auto 2.5 K/mm3 (1.3-6.7); Neutrophils Percent Auto 64.5 % (45.5-73.1); Platelet Count Result 254 k/mm3 (150-375); Red Blood Count 3.42 M/mm3 (4.6-6.20); Red Cell Distribution Width 16.2 % (11.5-14.5); White Blood Count 3.9 K/mm3 (4.5-10.0)
[2022-11-24 16:13] LABS: Alanine Aminotransferase 14 U/L (6-50); Albumin Level 4.3 g/dL (3.5-5.1); Alkaline Phosphatase 79 U/L (38-126); Anion Gap 7 mmol/L (8-16); Aspartate Amino Transferase 20 U/L (17-59); Bilirubin,Total 0.4 mg/dL (0.2-1.3); Blood Urea Nitrogen 37 mg/dL (9-20); Calcium 8.8 mg/dL (8.4-10.2); Carbon Dioxide 31 mmol/L (22-30); Chloride 94 mmol/L (98-107); Estimated CRCL calculation 18 ml/min; Estimated Glomerular Filt Rate 14; Glucose 80 mg/dL (65-110); Sodium 132 mmol/L (137-145)
[2022-11-24 16:17] LABS: INR 1.1; Prothrombin Time 14.2 Seconds (11.1-14.7)
[2022-11-24 16:18] LABS: Partial Thromboplastin Time 41.2 SECONDS (22.3-36.8)
--- NOTE | 2022-11-24 17:04 | ED.GENADULT ---
HPI - General Adult General Chief complaint: GI Bleed Stated complaint: light headed, dark stool, sob Time Seen by Provider: 11/24/22 15:40 History of Present Illness HPI narrative: Patient is a 57-year-old male who presents ER with weakness lightheadedness. Chronic issue for the last couple months since he has been having issues with GI bleeding. He had a polypectomy and then has had subsequent bleeding. At one point he had 8 units of blood transfused at an outside hospital. He was recently admitted here for further anemia and transfusion. Patient was seen by Dr. Lawson who performed an EGD and found nonerosive reflux disease as well as duodenitis. After feeling lightheaded dialysis it was recommended he come here to be evaluated. Related Data Home Medications Medication Instructions Recorded Confirmed aspirin 81 mg tablet,delayed 81 mg PO DAILY 03/05/21 11/02/22 release (Adult Aspirin Regimen) albuterol sulfate 90 mcg/actuation 1 puff inhalation Q4H PRN Dyspnea 12/09/21 11/02/22 aerosol inhaler acetaminophen 650 mg 650 mg PO Q6H PRN Headache 09/02/22 11/02/22 tablet,extended release epoetin jase 10,000 unit/mL 8,000 unit IV 3XW 09/02/22 11/02/22 injection solution (Epogen) fexofenadine 180 mg tablet 180 mg PO DAILY 09/02/22 11/02/22 heparin pork See Rx Instructions .Route .COMPLEX 09/02/22 11/02/22 iron sucrose 50 mg iron/2.5 mL 100 mg IV WEEKLY 09/02/22 11/02/22 intravenous solution (Venofer) isosorbide mononitrate 30 mg 30 mg PO DAILY 09/02/22 11/02/22 tablet,extended release 24 hr lisinopril 20 mg tablet 20 mg PO BID 09/02/22 11/02/22 metoprolol succinate 100 mg 100 mg PO BID 09/02/22 11/02/22 tablet,extended release 24 hr mometasone 50 mcg/actuation nasal 1 spray intranasal DAILY 09/02/22 11/02/22 spray cefdinir 300 mg capsule 300 mg PO Q12H 10/28/22 11/02/22 hydralazine 100 mg tablet 100 mg PO TID 10/28/22 11/02/22 Allergies Allergy/AdvReac Type Severity Reaction Status Date / Time menaquinone-7 (vitamin K2) AdvReac Shakiness Verified 11/24/22 15:51 [vitamin K2] Bumble Bee Allergy Severe hives Uncoded 11/24/22 15:51 Review of Systems Review of Systems: All systems reviewed & are unremarkable except as noted in HPI and below Constitutional: Constitutional: Denies chills, Reports fatigue and Denies fever(s) Comments: lightheadedness ENT: Denies nasal congestion and Denies sore throat Cardiovascular: Cardiovascular: Denies chest pain, Denies rapid heart rate and Denies radiating jaw, neck or arm pain Respiratory: Respiratory: Denies cough and Denies dyspnea Gastrointestinal: Gastrointestinal: Denies abdominal pain, Denies nausea and Denies vomiting Comments: Dark stools Neurologic: Denies syncope, Denies headache(s), Denies focal weakness and Denies numbness PMFSH Past Medical History Medical History Benign prostatic hyperplasia Chest pain Coronary artery disease End-stage renal disease on hemodialysis Erythropoietin deficiency anemia Essential hypertension Gastroesophageal reflux disease GI bleed Heart failure with reduced ejection fraction History of shingles Hyperparathyroidism due to renal insufficiency Nephrolithiasis Obstructive sleep apnea treated with BiPAP Osteoarthritis of right knee Shift work sleep disorder Thyroid nodule incidentally noted on imaging study Vitamin D deficiency Surgical History Surgical History History of cardiac catheterization History of cystoscopy History of four vessel coronary artery bypass graft (02/2021) SMITH to LAD, SVG to PDA, OM 1, OM 2. History of melanoma excision (2004) Right neck. History of total right knee replacement (02/2022) History of ureter stent Status post creation of arteriovenous fistula (05/2020) Family History Family History Sibling Diab
== END 2022-11-24 17:49 | disposition home or self-care (01) ==
PROVIDERS: Emergency Provider Emergency Medicine; PCP Family Medicine
DX: R42 Dizziness and giddiness (principal); R53.1 Weakness; I25.10 Atherosclerotic heart disease of native coronary artery without angina pectoris; I13.2 Hypertensive heart and chronic kidney disease with heart failure and with stage 5 chronic kidney disease, or end stage renal disease; N18.6 End stage renal disease; I50.9 Heart failure, unspecified; D63.1 Anemia in chronic kidney disease; N40.0 Benign prostatic hyperplasia without lower urinary tract symptoms; N25.81 Secondary hyperparathyroidism of renal origin; G47.33 Obstructive sleep apnea (adult) (pediatric); E55.9 Vitamin D deficiency, unspecified; Z99.2 Dependence on renal dialysis; Z95.1 Presence of aortocoronary bypass graft; Z96.651 Presence of right artificial knee joint; Z85.820 Personal history of malignant melanoma of skin; Z87.891 Personal history of nicotine dependence; Z79.82 Long term (current) use of aspirin; Z79.01 Long term (current) use of anticoagulants
CPT/HCPCS: 36415; 80053; 85025; 85610; 85730; 86850; 86900; 86901; 93005; 99283

== ENCOUNTER 2023-03-04 06:53 | Observation (INO) | payer MEDICARE, OTHER, SELFPAY ==
[2023-03-04] VITALS (39 sets, daily range): BP systolic 121–192; BP diastolic 64–122; PULSE 65–85; RESP 15–27; TEMP 36.2–37; O2SAT 95–98; BMI 23.0
--- NOTE | ~2023-03-04 | XR_ITS ---
EXAMINATION: XR chest 2V DATE: 03/04/2023 07:29 INDICATION: Chest pain. Shortness of breath. TECHNIQUE: Frontal and lateral views of the chest were obtained. COMPARISON: Chest 2 views 11/02/2022, chest CT 08/03/22 FINDINGS: There are small pleural effusions, left worse than right. There are airspace opacities in r ight lower lung zone and left mid and lower lung zones. No pneumothorax. Cardiomegaly is noted. Media n sternotomy wires and mediastinal surgical clips are seen, likely from prior coronary artery bypass grafting. There is a closure device at the left atrial appendage. IMPRESSION: 1. Stable small pleural effusions, left worse than right. 2. Stable airspace opacities in right lower lung zone and left mid and lower lung zones, consistent w ith atelectasis/scarring or less likely pneumonia. 3. Cardiomegaly. Reviewed, dictated and finalized at location E. IMPRESSION: 1. Stable small pleural effusions, left worse than right. 2. Stable airspace opacities in right lower lung zone and left mid and lower jules ng zones, consistent with atelectasis/scarring or less likely pneumonia. 3. Cardiomegaly.
--- NOTE | 2023-03-04 07:03 | ECG_ITS ---
Measurements Intervals [place] Rate: 80 P: 152 GA: 191 QRS: 137 QRSD: 112 T: 147 QT: 395 QTc: 457 Interpretive Statements SINUS RHYTHM LIMB LEAD REVERSAL POSSIBLE LEFT ATRIAL ENLARGEMENT INTRAVENTRICULAR CONDUCTION DELAY DELAYED PRECORDIAL R/S TRANSITION BORDERLINE ST-T WAVE ABNORMALITY- INF/LAT LEADS BASELINE ARTIFACT- V4-V6 BORDERLINE ECG COMPARED TO ECG 11/24/2022 15:43:45 INTRAVENTRICULAR CONDUCTION DELAY NOW PRESENT Electronically Signed On 03-04-2023 7:19:42 CDT by Tong Urban D.O.
[2023-03-04] MEDS: ASPIRIN 81 MG CHEWABLE TABLET 324 MG PO (07:18)
[2023-03-04 07:25] LABS: Alanine Aminotransferase 14 U/L (6-50); Albumin Level 4.7 g/dL (3.5-5.1); Alkaline Phosphatase 51 U/L (38-126); Anion Gap 14 mmol/L (8-16); Aspartate Amino Transferase 18 U/L (17-59); Bilirubin,Total 0.6 mg/dL (0.2-1.3); Blood Urea Nitrogen 61 mg/dL (9-20); Calcium 9.8 mg/dL (8.4-10.2); Carbon Dioxide 23 mmol/L (22-30); Chloride 98 mmol/L (98-107); Estimated CRCL calculation 11 ml/min; Estimated Glomerular Filt Rate 7; Glucose 99 mg/dL (65-110); Lipase 181 U/L (23-300); Potassium 5.3 mmol/L (3.4-5.0); Sodium 135 mmol/L (137-145)
--- NOTE | 2023-03-04 07:26 | ED.SOB ---
HPI - SOB/Dyspnea General Chief Complaint: Shortness of Breath/Dyspnea Stated Complaint: shortness of breath Time Seen by Provider: 03/04/23 07:24 Source: patient Mode of arrival: ambulatory Limitations: no limitations History of Present Illness HPI Narrative: Patient drove himself to the ED from home complaining of steady tightness and shortness of breath across the chest started last night. 6 out of 10, no aggravating or relieving factors, denies any fever, chills, nausea, vomiting, sneezing, coughing. Patient denies radiation of pain. History of hypertension, CABG, end-stage renal disorder on dialysis, scheduled for dialysis at 1030 this morning. Patient did not eat his breakfast or take his medication prior to arrival. Patient scheduled for thyroid surgery on coming Tuesday, patient was seen by his residential support specialist yesterday for preop evaluation which was okay. Patient on aspirin, denies anticoagulant medications. Related Data Home Medications Medication Instructions Recorded Confirmed aspirin 81 mg tablet,delayed 81 mg PO DAILY 03/05/21 03/04/23 release (Adult Aspirin Regimen) albuterol sulfate 90 mcg/actuation 2 puff inhalation Q4H PRN Dyspnea 12/09/21 03/04/23 aerosol inhaler epoetin jase 10,000 unit/mL 8,000 unit IV 3XW 09/02/22 03/04/23 injection solution (Epogen) heparin pork See Rx Instructions .Route .COMPLEX 09/02/22 03/04/23 iron sucrose 50 mg iron/2.5 mL 100 mg IV WEEKLY 09/02/22 03/04/23 intravenous solution (Venofer) isosorbide mononitrate 30 mg 30 mg PO DAILY 09/02/22 03/04/23 tablet,extended release 24 hr lisinopril 20 mg tablet 20 mg PO BID 09/02/22 03/04/23 metoprolol succinate 100 mg 100 mg PO BID 09/02/22 03/04/23 tablet,extended release 24 hr mometasone 50 mcg/actuation nasal 1 spray intranasal DAILY 09/02/22 03/04/23 spray hydralazine 100 mg tablet 100 mg PO TID 10/28/22 03/04/23 loratadine 10 mg tablet (Allergy 10 mg PO DAILY 03/04/23 03/04/23 Relief (loratadine)) Allergies Allergy/AdvReac Type Severity Reaction Status Date / Time menaquinone-7 (vitamin K2) AdvReac Shakiness Verified 03/04/23 07:05 [vitamin K2] Bumble Bee Allergy Severe hives Uncoded 03/04/23 07:05 vitamin k Allergy Severe loss of Uncoded 03/04/23 07:05 consiousness Review of Systems Review of Systems: All systems reviewed & are unremarkable except as noted in HPI and below PMFSH Past Medical History Medical History Benign prostatic hyperplasia Chest pain Coronary artery disease End-stage renal disease on hemodialysis Erythropoietin deficiency anemia Essential hypertension Gastroesophageal reflux disease GI bleed Heart failure with reduced ejection fraction History of shingles Hyperparathyroidism due to renal insufficiency Nephrolithiasis Obstructive sleep apnea treated with BiPAP Osteoarthritis of right knee Shift work sleep disorder Thyroid nodule incidentally noted on imaging study Vitamin D deficiency Surgical History Surgical History History of cardiac catheterization History of cystoscopy History of four vessel coronary artery bypass graft (02/2021) SMITH to LAD, SVG to PDA, OM 1, OM 2. History of melanoma excision (2004) Right neck. History of total right knee replacement (02/2022) History of ureter stent Status post creation of arteriovenous fistula (05/2020) Family History Family History Sibling Diabetes mellitus half sister Mother Family history of arthritis Father Family history unknown Social History Social History (Updated 03/04/23 @ 22:15 by Mar Morse APRN) Social History: Patient currently lives alone. Surrogate medical decision maker: Debrapradip Rosenthal, sister. Code status: Full Code. Smoking status: Current some day smoker Tobacco type: cigars Additional smoking assessment comments: Reports smoking 1 - 2 cigarettes a week Alcohol intake: never Drinks per week: 1 Alcohol use details: occasionally Substance use: never Substance use type: does not use Lack of Transportation: No Lack of Food: Never True Current Housing: I Have Housing Concerned About Future Housing: No Difficulty Paying Gas/Electric Bills: No Difficulty Paying for Meds: No Currently Unemployed: No Education: High School Diploma/GED Difficulty w/ Childcare or Family Care: No Living arrangements: alone Additional living arrangements comments: Lives in [place]. Additional occupation/education comments: [employer]. Spiritual care concerns: No Exam Narrative: General appearance: Well-developed, well-nourished Skin: Normal color Head: Normocephalic, nontraumatic Eyes: Clear conjunctiva ENT: Oropharynx normal, ears normal, nose normal Neck: Supple, nontender Chest and respiratory: Airway patent, no respiratory distress, no accessory muscle use Heart: Regular rate/rhythm Abdomen: Soft, nontender, no organomegaly, quiet bowel sounds Vascular: Normal peripheral pulses, normal capillary refill. Musculoskeletal: Normal range of motion, nontender back Neurologic: Alert and oriented ?3, QUALITY COMPLIANCE CONSULTANT is normal as tested, no gross motor deficit Course Consultations Consultation #1: DR MACEDO Date: 03/04/23 Time: 08:54 Consultation #2: DR PAGE Date: 03/04/23 Time: 08:54 Vital Signs Vital signs: Vital Signs Temperature 36.8 C 03/04/23 06:57 Pulse Rate 80 03/04/23 06:57 Respiratory Rate 20 03/04/23 06:57 Blood Pressure 192/119 H 03/04/23 06:57 Pulse Oximetry 97 03/04/23 06:57 Oxygen Delivery Room Air 03/04/23 06:57 Temperature 36.8 C 03/05/23 11:14 Pulse Rate 70 03/05/23 11:14 Respiratory Rate 20 03/05/23 11:14 Blood Pressure 154/96 H 03/05/23 11:14 Pulse Oximetry 99 03/05/23 11:14 Oxygen Delivery Room Air 03/05/23 08:00 MDM - SOB/Dyspnea MDM Narrative Medical decision making narrative: Patient presents with chest pain and shortness of breath for the last 10 hours, steady, Differential diagnosis include coronary artery disease, pneumonia, pleural effusion, volume overload, patient was a scheduled for dialysis at 1030 this morning, did not take his home medication this morning. On arrival blood pressure is elevated, chest pain is 6 out of 10, work-up today showed no significant abnormality to explain his complaint. Volume overload, elevated blood pressure are my concern. Patient to be admitted to the hospitalist, consult Dr. MACEDO for dialysis. Differential Diagnosis Differential diagnosis: Likely congestive heart failure, community acquired pneumonia and other (Volume overload, congestive heart failure, pleural effusion) Medical Records Attestation: I reviewed the patient's medical records. Lab Data Attestation: I reviewed the patient's lab results. 03/05/23 04:17 03/05/23 04:17 Labs: Lab Results 03/04/23 Range/Units 07:08 WBC 6.8 (4.5-10.0) K/mm3 RBC 4.81 (4.6-6.20) M/mm3 Hgb 12.4 L (14.0-18.0) g/dL Hct 42.5 (42.0-52.0) % MCV 88.4 (80-100) fl MCH 25.8 L (26-34) pg MCHC 29.2 L (32-36) g/dl RDW 19.5 H (11.5-14.5) % Plt Count 191 (150-375) k/mm3 MPV 9.9 (7.4-10.4) fl Immature Gran % (Auto) 0.4 (0-0.5) % Neut % (Auto) 69.6 (45.5-73.1) % Lymph % (Auto) 14.5 L (18.3-44.2) % [place] % (Auto) 10.4 H (2.6-8.5) % Eos % (Auto) 3.9 (0-4.4) % Baso % (Auto) 1.2 (0.2-1.2) % Lymph # (Auto) 0.98 (0.9-3.2) K/mm3 [place] # (Auto) 0.7 H (0.1-0.6) K/mm3 Eos # (Auto) 0.3 (0-0.3) K/mm3 Baso # (Auto) 0.1 (0.0-0.1) K/mm3 Abs Immat Gran (auto) 0.03 (0.00-0.031) K/mm3 Absolute Neuts (auto) 4.7 (1.3-6.7) K/mm3 Absolute Nucleated RBC 0.0 (0.0-0.012) K/mm3 Nucleated RBC % 0.0 (0.0-0.2) % Platelet Estimate Adequate (Adequate) Hypochromasia 1+ (NORMAL) Schistocytes None seen (NORMAL) PT 14.8 H (11.1-14.7) Seconds INR 1.1 APTT 36.1 (22.3-36.8) SECONDS Sodium 135 L (137-145) mmol/L Potassium 5.3 H (3.4-5.0) mmol/L Chloride 98 (98-107) mmol/L Carbon Dioxide 23 (22-30) mmol/L Anion Gap 14 (8-16) mmol/L BUN 61 H D (9-20) mg/dL Creatinine 7.60 H (0.7-1.3) mg/dL Estim Creat Clear Calc 11 ml/min Estimated GFR 7 L (59 - ) Glucose 99 (65-110) mg/dL Calcium 9.8 (8.4-10.2) mg/dL Total Bilirubin 0.6 (0.2-1.3) mg/dL AST 18 (17-59) U/L ALT 14 (6-50) U/L Alkaline Phosphatase 51 (38-126) U/L Troponin I 0.027 (0.000-0.034) ng/mL NT-Pro-B Natriuret Pep > 31345 H (19.9-100) pg/mL Total Protein 8.0 (6.3-8.2) g/dL Albumin 4.7 (3.5-5.1) g/dL Lipase 181 (23-300) U/L Imaging Data Radiologist's impression: Impressions Chest X-Ray 03/04/23 07:33 IMPRESSION: 1. Stable small pleural effusions, left worse than right. 2. Stable airspace opacities in right lower lung zone and left mid and lower lung zones, consistent with atelectasis/scarring or less likely pneumonia. 3. Cardiomegaly. ECG Data EKG #1: ECG completion date: 03/04/23 ECG completion time: 08:29 Prior ECG tracings: available for review Interpretation: Normal sinus rhythm at 80 bpm, left atrial enlargement, interventricular conduction delay, delayed precordial R/S transition, borderline EKG, compared to EKG on November 24, 2022 interventricular conduction delay now present. Critical Care Time Critical Care Time Critical Care Time: Yes Total Critical Care Time: 35 Discharge Plan Discharge Clinical Impression: Hemodialysis patient, Pleural effusion, Hypertension, uncontrolled, Dialysis patient Chest pain Qualifiers: Chest pain type: unspecified Qualified Code(s): R07.9 - Chest pain, unspecified Patient Disposition: Still a Patient Condition: Stable
[2023-03-04 07:27] LABS: Basophils Absolute Auto 0.1 K/mm3 (0.0-0.1); Basophils Percent Auto 1.2 % (0.2-1.2); Eosinophils Absolute Auto 0.3 K/mm3 (0-0.3); Eosinophils Percent Auto 3.9 % (0-4.4); Hematocrit 42.5 % (42.0-52.0); Hemoglobin 12.4 g/dL (14.0-18.0); Immature Granulocyte Absolute 0.03 K/mm3 (0.00-0.031); Immature Granulocyte Percent A 0.4 % (0-0.5); Lymphocytes Absolute Auto 0.98 K/mm3 (0.9-3.2); Lymphocytes Percent Auto 14.5 % (18.3-44.2); Mean Corpuscular HGB Conc 29.2 g/dl (32-36); Mean Corpuscular Hemoglobin 25.8 pg (26-34); Mean Corpuscular Volume 88.4 fl (80-100); Mean Platelet Volume 9.9 fl (7.4-10.4); Monocytes Absolute Auto 0.7 K/mm3 (0.1-0.6); Monocytes Percent Auto 10.4 % (2.6-8.5); Neutrophils Absolute Auto 4.7 K/mm3 (1.3-6.7); Neutrophils Percent Auto 69.6 % (45.5-73.1); Platelet Count Result 191 k/mm3 (150-375); Red Blood Count 4.81 M/mm3 (4.6-6.20); Red Cell Distribution Width 19.5 % (11.5-14.5); White Blood Count 6.8 K/mm3 (4.5-10.0)
[2023-03-04 07:35] LABS: Troponin I 0.027 ng/mL (0.000-0.034)
[2023-03-04 07:47] LABS: INR 1.1; Prothrombin Time 14.8 Seconds (11.1-14.7)
[2023-03-04 07:49] LABS: Partial Thromboplastin Time 36.1 SECONDS (22.3-36.8)
[2023-03-04 07:51] LABS: Hypochromasia 1+ (NORMAL); Platelet Estimate Adequate (Adequate); Schistocytes None Seen (NORMAL)
[2023-03-04 08:05] LABS: NT Pro B Type Natriuretic Pept > 30000 pg/mL (19.9-100)
[2023-03-04] MEDS: ISOSORBIDE MONONITRATE 30 MG TAB.ER.24H PO (08:10)
[2023-03-04] MEDS: hydrALAZINE HCL 50 MG TABLET 100 MG PO ×2 (08:10→21:00)
[2023-03-04] MEDS: FUROSEMIDE INJ 100 MG/10 ML VIAL 80 MG IV PUSH (08:11)
[2023-03-04] MEDS: lisinopriL 20 MG TABLET PO ×2 (09:06→21:01)
[2023-03-04] MEDS: METOPROLOL TARTRATE 50 MG TAB 25 MG PO (09:06)
--- NOTE | 2023-03-04 09:32 | ADMGEN ---
This patient, Audi Rosenthal, was admitted to IMU Room 200-01. Patient/family oriented to hospital policies and general routines including ID bracelet, bed and alarms, visiting hours, pain management, procedures, bathroom and other care routines, personal items, smoking policy, room service/diet, and visiting hours. Information on how to activate the Rapid Response Team has been discussed. Patient/Family are encouraged to report perceived risks to care and to ask questions if they do not understand what they are told or what they should do.
[2023-03-04 11:08] LABS: Troponin I 0.024 ng/mL (0.000-0.034)
[2023-03-04 12:01] LABS: Hepatitis B Surface Antigen Negative (Negative)
[2023-03-04 13:18] LABS: Troponin I 0.017 ng/mL (0.000-0.034)
[2023-03-04 13:54] LABS: Hepatitis B Surface Anti Res Indeterminate
--- NOTE | 2023-03-04 14:50 | P.CONNP_ITS ---
Assessment and Plan Assessment and plan (1) End stage renal disease: Code(s): N18.6 - End stage renal disease Status: Chronic Assessment and Plan: * HD today * continue M/W/F schedule while hospitalized * follow electrolytes, volume status, and clearance (2) Shortness of Breath: Code(s): R06.02 - Shortness of breath Status: Acute Assessment and Plan: * presumably due to fluid overload +/- hypertension * reassess symptoms post-HD * follow respiratory status * continue home diuretics (3) Essential hypertension: Code(s): I10 - Essential (primary) hypertension Status: Chronic Assessment and Plan: * elevated on admission * resume home medications * HD today should help some * follow trend of hemodynamics (4) Anemia: Code(s): D64.9 - Anemia, unspecified Status: Chronic Assessment and Plan: * due to ESRD * H/H at goal * Epogen with HD * follow trend (5) MICHELLE (obstructive sleep apnea): Code(s): G47.33 - Obstructive sleep apnea (adult) (pediatric) Status: Chronic Assessment and Plan: * compliance with BiPAP/CPAP questionable * continue while hospitalized I will continue follow the patient with you while he remains hospitalized and make further recommendations as needed. Thank you for allowing me to participate in care of this patient. History of Present Illness Reason for Consult Consult date: 03/04/23 Reason for consult: end stage renal disease Chief Complaint Chief complaint: Chest Pain/Dyspnea/Pleural Effusion/Hemodialysis P History of Present Illness Narrative: The patient is a 57-year-old male with extensive past medical history as outlined below who presented to [facility] Emergency room for further evaluation of chest tightness and shortness of breath The patient reports that the symptoms started early this morning around 1:00 - 2:00 a.m.. They awoke him from his sleep and was associated with some mild nausea. He reported no other associated symptoms with regard to diaphoresis, radiation of the chest tightness, epigastric pain, dizziness, lightheadedness, or palpitations. The symptoms apparently lasted for about 11 - 12 hours and as they seem to be ongoing, he presented to the emergency room for further assessment. Workup and evaluation emergency room demonstrated the patient to be somewhat hypertensive but in no acute distress. routine blood test demonstrated labs consistent with his known history of end-stage renal disease and his chest x-ray showed some mild congestion and pleural effusions. As he still makes some urine, he was given IV diuretic therapy and this actually seemed to relieve a lot of his symptoms including his chest tightness and shortness of breath. Given his somewhat complex medical history as well as the fact that he is due for dialysis today, he was admitted to the hospital for further evaluation and therapy. Renal consultation was requested due to his end-stage renal disease. The patient is quite familiar to me as I take care of his outpatient dialysis needs. The patient normally dialyzes on a Tuesday, Tuesday, Tuesday dialysis schedule at [facility] under my care. From a kidney perspective, he usually does quite well with his dialysis treatments although sometimes compliance with medications and his dialysis treatments in general are an issue. There are times that he has missed dialysis treatments due to his traveling and compliance with his home medications his sometimes of concern given his high blood pressure readings during dialysis treatments despite his multiple medications that he should be taking. His last dialysis treatment was on 03/03/2023, and he is due for dialysis today. Currently, at the time my visit, the patient is receiving dialysis (seen on HD at 2:40 p.m.) and appears in no acute distress. Review of Systems Review of Systems: As per HPI. [facility] Past Medical History Medical History Benign prostatic hyperplasia Chest pain Coronary artery disease End-stage renal disease on hemodialysis Erythropoietin deficiency anemia Essential hypertension Gastroesophageal reflux disease GI bleed Heart failure with reduced ejection fraction History of shingles Hyperparathyroidism due to renal insufficiency Nephrolithiasis Obstructive sleep apnea treated with BiPAP Osteoarthritis of right knee Shift work sleep disorder Thyroid nodule incidentally noted on imaging study Vitamin D deficiency Surgical History Surgical History History of cardiac catheterization History of cystoscopy History of four vessel coronary artery bypass graft (02/2021) SMITH to LAD, SVG to PDA, OM 1, OM 2. History of melanoma excision (2004) Right neck. History of total right knee replacement (02/2022) History of ureter stent Status post creation of arteriovenous fistula (05/2020) Family History Family History Sibling Diabetes mellitus half sister Mother Family history of arthritis Father Family history unknown Social History Social History (Updated 03/04/23 @ 22:15 by Mar Morse APRN) Social History: Patient currently lives alone. Surrogate medical decision maker: Debra Rosenthal, sister. Code status: Full Code. Smoking status: Current some day smoker Tobacco type: cigars Additional smoking assessment comments: Reports smoking 1 - 2 cigarettes a week Alcohol intake: never Drinks per week: 1 Alcohol use details: occasionally Substance use: never Substance use type: does not use Lack of Transportation: No Lack of Food: Never True Current Housing: I Have Housing Concerned About Future Housing: No Difficulty Paying Gas/Electric Bills: No Difficulty Paying for Meds: No Currently Unemployed: No Education: High School Diploma/GED Difficulty w/ Childcare or Family Care: No Living arrangements: alone Additional living arrangements comments: Lives in [place]. Additional occupation/education comments: [employer]. Spiritual care concerns: No Meds Home Medications and Allergies Home Medications Medication Instructions Recorded Confirmed Type aspirin 81 mg tablet,delayed 81 mg PO DAILY 03/05/21 03/04/23 History release (Adult Aspirin Regimen) albuterol sulfate 90 mcg/actuation 2 puff inhalation Q4H PRN Dyspnea 12/09/21 03/04/23 History aerosol inhaler rosuvastatin 10 mg tablet (Crestor) 10 mg PO QHS #90 tabs 06/15/22 03/04/23 Rx epoetin jase 10,000 unit/mL 8,000 unit IV 3XW 09/02/22 03/04/23 History injection solution (Epogen) heparin pork See Rx Instructions .Route .COMPLEX 09/02/22 03/04/23 History iron sucrose 50 mg iron/2.5 mL 100 mg IV WEEKLY 09/02/22 03/04/23 History intravenous solution (Venofer) isosorbide mononitrate 30 mg 30 mg PO DAILY 09/02/22 03/04/23 History tablet,extended release 24 hr lisinopril 20 mg tablet 20 mg PO BID 09/02/22 03/04/23 History metoprolol succinate 100 mg 100 mg PO BID 09/02/22 03/04/23 History tablet,extended release 24 hr mometasone 50 mcg/actuation nasal 1 spray intranasal DAILY 09/02/22 03/04/23 History spray hydralazine 100 mg tablet 100 mg PO TID 10/28/22 03/04/23 History pantoprazole 40 mg tablet,delayed 40 mg PO BID #14 tabs 01/10/23 03/04/23 Rx release (Protonix) fluticasone 250 mcg-salmeterol 50 1 inh inhalation BID #60 ea 02/08/23 03/04/23 Rx mcg/dose blistr powdr for inhalation (Advair Diskus) loratadine 10 mg tablet (Allergy 10 mg PO DAILY 03/04/23 03/04/23 History Relief (loratadine)) furosemide 80 mg tablet (Lasix) 80 mg PO QAM #30 tabs 03/05/23 Rx Allergies Allergy/AdvReac Type Severity Reaction Status Date / Time menaquinone-7 (vitamin K2) AdvReac Shakiness Verified 03/04/23 07:05 [vitamin K2] Bumble Bee Allergy Severe hives Uncoded 03/04/23 07:05 vitamin k Allergy Severe loss of Uncoded 03/04/23 07:05 consiousness Vital Signs Vital Signs Temp Pulse Resp BP Pulse Ox O2 Del Method 03/04/23 14:00 75 03/04/23 12:00 67 03/04/23 12:00 Room Air 03/04/23 11:26 98.1 F 66 18 152/78 H 98 03/04/23 10:00 70 03/04/23 10:32 Room Air 03/04/23 09:36 98.0 F 72 18 140/96 H 98 03/04/23 09:15 74 24 H 03/04/23 09:06 76 20 156/102 H 03/04/23 09:01 85 16 140/104 H 03/04/23 08:58 74 22 H 169/102 H 03/04/23 08:31 77 18 182/113 H 03/04/23 08:00 81 27 H 178/122 H 03/04/23 07:45 74 19 03/04/23 07:32 75 23 H 169/103 H 03/04/23 07:26 76 21 H 177/100 H 03/04/23 07:06 77 20 181/109 H 03/04/23 09:06 82 03/04/23 07:07 96 Room Air 03/04/23 07:00 79 03/04/23 06:57 98.3 F 80 20 192/119 H 97 Room Air Exam Narrative: GENERAL APPEARANCE: well developed well nourished male in no acute distress HEENT: normocephalic, atraumatic, normal conjunctiva and sclera, nares patient NECK: no lymphadenopathy, thyromegaly, or JVD MOUTH: normal lips, teeth, and gums CARDIOVASCULAR: RRR, normal S1 and S2, no rub RESPIRATORY: clear anteriorly but with bibasilar crackles ABDOMEN: soft, mild TTP in epigastic area, nondistended, positive bowel sounds present EXTREMITIES: no evidence of cyanosis, clubbing; trace edema NEUROLOGICAL: alert and oriented x 3; CN II - XII intact bilaterally; no focal deficits noted Results Lab Results 03/05/23 04:17 03/05/23 04:17 Lab results: Most recent lab results Calcium 9.8 mg/dL (8.4-10.2) 03/04/23 07:08
--- NOTE | 2023-03-04 18:46 | P.HP_ITS ---
H&P: HPI History of Present Illness Date/Time: 03/04/23 18:46 Chief Complaint: SOB Narrative: 58 y/o M presents here with SOB and chest tightness with PMH of ESRD requiring dialysis (MWF), erythropoietin anemia, GERD, heart failure, hyperparathyroidism, MICHELLE with BiPAP, and BPH. The patient presented here with shortness of breath and chest tightness that started around 1-2:00 a.m. Symptoms woke him from his sleep and was briefly accompanied by nausea. No diaphoresis, radiation of tightness, or epigastric pain. discomfort and shortness of breath lasted until 11a-12p. Reports total relief after diuretic was given. Denies any current chest pain, shortness of breath, or chest tightness. Patient scheduled for parathyroid surgery on Tue, 03/07. Patient reports compliance with medication expand, excluding Imdur. 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 No recent illnesses. No identified alleviating or aggravating factors. Review of Systems Review of Systems: All systems reviewed & are unremarkable except as noted in HPI and below PMFSH Past Medical History Medical History Benign prostatic hyperplasia Chest pain Coronary artery disease End-stage renal disease on hemodialysis Erythropoietin deficiency anemia Essential hypertension Gastroesophageal reflux disease GI bleed Heart failure with reduced ejection fraction History of shingles Hyperparathyroidism due to renal insufficiency Nephrolithiasis Obstructive sleep apnea treated with BiPAP Osteoarthritis of right knee Shift work sleep disorder Thyroid nodule incidentally noted on imaging study Vitamin D deficiency Surgical History Surgical History History of cardiac catheterization History of cystoscopy History of four vessel coronary artery bypass graft (02/2021) SMITH to LAD, SVG to PDA, OM 1, OM 2. History of melanoma excision (2004) Right neck. History of total right knee replacement (02/2022) History of ureter stent Status post creation of arteriovenous fistula (05/2020) Family History Family History Sibling Diabetes mellitus half sister Mother Family history of arthritis Father Family history unknown Social History Social History (Updated 03/04/23 @ 22:15 by Mar Morse APRN) Social History: Patient currently lives alone. Surrogate medical decision maker: Debra Rosenthal, sister. Code status: Full Code. Smoking status: Current some day smoker Tobacco type: cigars Additional smoking assessment comments: Reports smoking 1 - 2 cigarettes a week Alcohol intake: never Drinks per week: 1 Alcohol use details: occasionally Substance use: never Substance use type: does not use Lack of Transportation: No Lack of Food: Never True Current Housing: I Have Housing Concerned About Future Housing: No Difficulty Paying Gas/Electric Bills: No Difficulty Paying for Meds: No Currently Unemployed: No Education: High School Diploma/GED Difficulty w/ Childcare or Family Care: No Living arrangements: alone Additional living arrangements comments: Lives in [place]. Additional occupation/education comments: [employer]. Spiritual care concerns: No Meds Home Medications and Allergies Home Medications Medication Instructions Recorded Confirmed Type aspirin 81 mg tablet,delayed 81 mg PO DAILY 03/05/21 03/04/23 History release (Adult Aspirin Regimen) albuterol sulfate 90 mcg/actuation 2 puff inhalation Q4H PRN Dyspnea 12/09/21 03/04/23 History aerosol inhaler rosuvastatin 10 mg tablet (Crestor) 10 mg PO QHS #90 tabs 06/15/22 03/04/23 Rx epoetin jase 10,000 unit/mL 8,000 unit IV 3XW 09/02/22 03/04/23 History injection solution (Epogen) fexofenadine 180 mg tablet 180 mg PO DAILY 09/02/22 03/04/23 History heparin pork See Rx Instructions .Route .COMPLEX 09/02/22 03/04/23 History iron sucrose 50 mg iron/2.5 mL 100 mg IV WEEKLY 09/02/22 03/04/23 History intravenous solution (Venofer) isosorbide mononitrate 30 mg 30 mg PO DAILY 09/02/22 03/04/23 History tablet,extended release 24 hr lisinopril 20 mg tablet 20 mg PO BID 09/02/22 03/04/23 History metoprolol succinate 100 mg 100 mg PO BID 09/02/22 03/04/23 History tablet,extended release 24 hr mometasone 50 mcg/actuation nasal 1 spray intranasal DAILY 09/02/22 03/04/23 History spray hydralazine 100 mg tablet 100 mg PO TID 10/28/22 03/04/23 History furosemide 80 mg tablet (Lasix) 80 mg PO QAM #90 tabs 01/10/23 03/04/23 Rx pantoprazole 40 mg tablet,delayed 40 mg PO BID #14 tabs 01/10/23 03/04/23 Rx release (Protonix) fluticasone 250 mcg-salmeterol 50 1 inh inhalation BID #60 ea 02/08/23 03/04/23 Rx mcg/dose blistr powdr for inhalation (Advair Diskus) loratadine 10 mg tablet (Allergy 10 mg PO DAILY 03/04/23 03/04/23 History Relief (loratadine)) Allergies Allergy/AdvReac Type Severity Reaction Status Date / Time menaquinone-7 (vitamin K2) AdvReac Shakiness Verified 03/04/23 07:05 [vitamin K2] Bumble Bee Allergy Severe hives Uncoded 03/04/23 07:05 vitamin k Allergy Severe loss of Uncoded 03/04/23 07:05 consiousness Vital Signs Vital Signs - 24 hr 03/04/23 06:57 03/04/23 07:00 03/04/23 07:07 Temperature 98.3 F Pulse Rate 80 79 Respiratory Rate 20 Blood Pressure 192/119 H Pulse Oximetry 97 96 Oxygen Delivery Room Air Room Air 03/04/23 09:06 03/04/23 07:06 03/04/23 07:26 Temperature Pulse Rate 82 77 76 Respiratory Rate 20 21 H Blood Pressure 181/109 H 177/100 H Pulse Oximetry Oxygen Delivery 03/04/23 07:32 03/04/23 07:45 03/04/23 08:00 Temperature Pulse Rate 75 74 81 Respiratory Rate 23 H 19 27 H Blood Pressure 169/103 H 178/122 H Pulse Oximetry Oxygen Delivery 03/04/23 08:31 03/04/23 08:58 03/04/23 09:01 Temperature Pulse Rate 77 74 85 Respiratory Rate 18 22 H 16 Blood Pressure 182/113 H 169/102 H 140/104 H Pulse Oximetry Oxygen Delivery 03/04/23 09:06 03/04/23 09:15 03/04/23 09:36 Temperature 98.0 F Pulse Rate 76 74 72 Respiratory Rate 20 24 H 18 Blood Pressure 156/102 H 140/96 H Pulse Oximetry 98 Oxygen Delivery 03/04/23 10:32 03/04/23 10:00 03/04/23 11:26 Temperature 98.1 F Pulse Rate 70 66 Respiratory Rate 18 Blood Pressure 152/78 H Pulse Oximetry 98 Oxygen Delivery Room Air 03/04/23 12:00 03/04/23 12:00 03/04/23 14:00 Temperature Pulse Rate 67 75 Respiratory Rate Blood Pressure Pulse Oximetry Oxygen Delivery Room Air 03/04/23 14:35 03/04/23 14:45 03/04/23 15:00 Temperature 97.7 F Pulse Rate 67 65 75 Respiratory Rate 16 Blood Pressure 145/88 H 144/86 H 147/88 H Pulse Oximetry Oxygen Delivery 03/04/23 15:20 03/04/23 15:40 03/04/23 16:00 Temperature Pulse Rate 74 76 71 Respiratory Rate Blood Pressure 157/90 H 162/93 H 158/82 H Pulse Oximetry Oxygen Delivery 03/04/23 16:20 03/04/23 16:40 03/04/23 16:00 Temperature Pulse Rate 75 75 71 Respiratory Rate Blood Pressure 161/93 H 155/93 H Pulse Oximetry Oxygen Delivery 03/04/23 17:00 03/04/23 17:20 03/04/23 17:40 Temperature Pulse Rate 77 77 78 Respiratory Rate Blood Pressure 144/85 H 147/80 H 137/78 Pulse Oximetry Oxygen Delivery 03/04/23 18:00 Temperature Pulse Rate 80 Respiratory Rate Blood Pressure Pulse Oximetry Oxygen Delivery Exam Const: General: comfortable and no acute distress HENMT: Face/Nose/Sinus: Normal nares present Mouth: Yes moist mucous membranes Eyes: General: appearance normal, both eyes and all related structures Sclera: sclerae normal Pupils: Equal, round and reactive pupils present Neck: Neck: supple and no JVD Resp: Effort & Inspection: normal respiratory effort Auscultation: crackles Other: crackles at bases Cardio: Rate: regular rate Rhythm: regular rhythm Other: S1-S2 present without murmur, rub, ectopy GI: GI Palp: Yes Soft to palpation Auscultation: normal bowel sounds Skin: General skin exam: normal color and no rashes or lesions noted Neuro: Speech: normal speech Sensory Exam: normal sensation Other: A/Ox4 Extrem: Other: dialysis fistula to L upper bicep, +thrill/bruit Psych: Mental Status: mental status grossly normal Affect: normal affect H&P: Results Labs Labs: Short CBC 03/04/23 Range/Units 07:08 WBC 6.8 (4.5-10.0) K/mm3 Hgb 12.4 L (14.0-18.0) g/dL Hct 42.5 (42.0-52.0) % Plt Count 191 (150-375) k/mm3 BMP 03/04/23 07:08 Sodium 135 L Potassium 5.3 H Chloride 98 Carbon Dioxide 23 BUN 61 H D Creatinine 7.60 H Glucose 99 Calcium 9.8 Cardiac Enzymes 03/04/23 03/04/23 03/04/23 Range/Units 07:08 10:33 12:48 Troponin I 0.027 0.024 0.017 D (0.000-0.034) ng/mL Liver Function 03/04/23 Range/Units 07:08 Total Bilirubin 0.6 (0.2-1.3) mg/dL AST 18 (17-59) U/L ALT 14 (6-50) U/L Alkaline Phosphatase 51 (38-126) U/L Albumin 4.7 (3.5-5.1) g/dL Assessment and Plan Assessment and plan (1) End-stage renal disease on hemodialysis: Code(s): N18.6 - End stage renal disease; Z99.2 - Dependence on renal dialysis Status: Acute (2) Shortness of Breath: Code(s): R06.02 - Shortness of breath Status: Acute Plan Hospital Course Problem List 1. ESRD on hemodialysis * dialysis on MWF - received treatment today inpatient. * nephrology consulted - Aurelia * VS Q4 * Daily Weights * trend renal function and BMP 2. Shortness of breath * Initial EKG * BNP: >30,000 * continue home lasix 80 mg QAM * Echo ordered, last done 05/11/2022. Impression: Left ventricular systolic function EF 51% left ventricular segmental wall motion is abnormal left ventricular diastolic function is abnormal grade 3 with elevated left ventricular filling pressures moderate concentric left ventricular hypertrophy severe left atrial enlargement severe right atrial enlargement mild pulmonary hypertension estimated pressure of 53 mmHG normal tricuspid leaflets with moderate severe TR. * initial c/f hypertensive urgency, continue to monitor BP. Last BP 143/71 at 20:15. * trend CBC * trop negative x3 Chronic Conditions - hold home iron infusion and epogen - HTN: Continue home medication -hydralazine, Imdur, lisinopril, metoprolol. Monitor BP. - CAD: Continue home a daily aspirin - HLD: Continue home medication - rosuvastatin - MICHELLE: continue home bipap/cpap - continue home albuterol PRN, Advair b.i.d. - allergies: Continue home medication -loratadine, fexofenadine, Flonase Diet: Heart healthy GI Prophylaxis: Continue home pantoprazole DVT Prophylaxis: SCD Lines: pIV Code Status: Full Code Quality VTE Prophylaxis VTE prophylaxis: mechanical ordered [facility] H&P: [id number] Initial Admit Mod
[2023-03-04] MEDS: FLUTICASONE/SALMETEROL 115-21 MCG INHALER 1 PUFF 2 PUFF INHALATION (20:06)
[2023-03-04] MEDS: METOPROLOL SUCCINATE EXT REL 100 MG TABCR PO (21:01)
[2023-03-04] MEDS: ROSUVASTATIN 10 MG TABLET PO (21:01)
[2023-03-05] VITALS (12 sets, daily range): BP systolic 154–180; BP diastolic 96–109; PULSE 70–83; RESP 15–22; TEMP 36.3–36.9; O2SAT 98–99
--- NOTE | 2023-03-05 | ECHO_ITS ---
Patient Info Name: Audi Rosenthal Age: 58 years : 1965 Gender: Male Ht: 72 in Wt: 170 lbs BSA: 1.98 m2 HR: 75 bpm BP: 152 / 78 mmHg Heart Rhythm: Sinus Rhythm Technical Quality: Good Exam Date: 03/05/2023 8:45 AM Exam Location: [facility] Patient Status: Inpatient Admit Date: 03/04/2023 Staff Ordering Physician: Mar Morse APRN Customer Service Driver: Hadley Ferguson RDCS Attending Provider: Garry Simon MD Referring Physician: Lito BOLAND; Exam Type: CA echo doppler color flow Study Info Indications - Sob, elevated BNP Complete two-dimensional, color flow and Doppler transthoracic echocardiogram is performed. Summary 1. Complete two-dimensional, color flow and Doppler transthoracic echocardiogram is performed. 2. Concentric left ventricular hypertrophy with good systolic function and grade 1 diastolic noncompliance. 3. Right ventricular and right atrial enlargement as judged from the apical window. 4. Mild tricuspid insufficiency velocities suggest that PA systolic pressure is approximately 40 mmHg. 5. Pleural effusion noted. Left Ventricle Left ventricular chamber dimension is normal. Left ventricular systolic function is normal, estimated at 50-55%. There is severe concentric increased left ventricular wall thickness. The left ventricular diastolic function is grade I diastolic dysfunction. Right Ventricle Right ventricular chamber dimension is moderately enlarged. Right ventricular systolic function is reduced. Left Atria Left atrial chamber dimension is normal. Right Atria Right atrial chamber dimension is moderately enlarged. Aortic Valve The aortic valve is trileaflet. There is mild aortic valve sclerosis. Pulmonic Valve The pulmonic valve is not well visualized. Mitral Valve The mitral valve has normal leaflets. There is trace mitral valve regurgitation. Tricuspid Valve The tricuspid valve leaflets are normal. There is mild tricuspid valve regurgitation. Pericardium/Pleural The pericardium appears normal. Aorta The aortic root size at the sinus of Valsalva is normal. Left Ventricular Outflow Tract Name Value Normal LVOT 2D LVOT Diameter 1.8 cm LVOT Doppler LVOT Peak Gradient 5 mmHg LVOT Mean Gradient 2 mmHg LVOT VTI 24 cm LVOT VTI/AV VTI Ratio 0.6 LVOT Stroke Volume 62 ml LVOT CO 4.2 l/min LVOT CI 2.1 l/min/m2 Pulmonic Valve Name Value Normal RVOT Doppler RVOT Peak Gradient 0 mmHg PV Doppler PV Peak Gradient 5 mmHg Mitral Valve Name Value Normal MV Doppler MV Decel [place] 471 cm/s2 MV PHT 61 ms MV Area (PHT) 3.6 cm2 4.0-5.0 MV Regurgitation Doppler MR Peak Gradient 22 mmHg MV Diastolic Function MV E Peak Velocity 99 cm/s MV A Peak Velocity 35 cm/s MV E/A 2.8 MV Decel Time 211 ms MV Annular TDI MV E/e' (Septal) 22.7 <=8.0 MV E/e' (Lateral) 12.0 <=8.0 MV E/e' (Average) 17.3 Tricuspid Valve Name Value Normal TV Regurgitation Doppler TR Peak Velocity 283 cm/s TR Peak Gradient 30 mmHg Estimated PAP/RSVP RA Pressure 10 mmHg <=5 PA Systolic Pressure 42 mmHg <36 RV Systolic Pressure 42 mmHg <36 Aortic Valve Name Value Normal AV Doppler AV Peak Velocity 193 cm/s AV Peak Gradient 15 mmHg AV Mean Gradient 8 mmHg AV VTI 37 cm AV Area (Cont Eq VTI) 1.7 cm2 >=3.0 AV Area (Cont Eq Martin) 1.5 cm2 AV Regurgitation 2D LVOT Area 2.6 cm2 Ventricles Name Value Normal LV Dimensions 2D/MM IVS Diastolic Thickness (2D) 1.6 cm 0.6-1.0 LVID Diastole (2D) 4.3 cm 4.2-5.8 LVIW Diastolic Thickness (2D) 1.5 cm 0.6-1.0 LVID Systole (2D) 3.4 cm 2.5-4.0 LVOT Diameter 1.8 cm LV Mass (2D Cubed) 269.22 g 88.00-224.00 LV Mass Index (2D Cubed) 136 g/m2 49-115 Relative Wall Thickness (2D) 0.70 LV Fractional Shortening/Ejection Fraction 2D/MM LV Fractional Shortening (2D) 22 % 25-43 LV EF (2D Teicholz) 45 % 52-72 LV Diastolic Volume (4C MOD) 147 ml LV EF (4C MOD) 60 % LV Diastolic Volume (2C MOD) 134 ml LV EF (2C MOD) 52 % LV Diastolic Volume (BP MOD) 141 ml 62-150 LV Diastolic Volume Index (BP MOD) 71 ml/m2 34-74 LV Systolic Volume (BP MOD) 65 ml 21-61 LV Systolic Volume Index (BP MOD) 33 ml/m2 11-31 LV EF (BP MOD) 54 % 52-72 LV Diastolic Length (4C) 9.7 cm LV Systolic Length (4C) 7.8 cm LV Stroke Volume (4C MOD) 88 ml Atria Name Value Normal LA Dimensions LA Volume (4C A-L) 87 ml LA Volume (BP A-L) 95 ml RA Dimensions RA Area (4C) 26.2 cm2 <=18.0 Report Signatures
[2023-03-05 04:49] LABS: Hematocrit 36.2 % (42.0-52.0); Mean Corpuscular HGB Conc 30.4 g/dl (32-36); Mean Corpuscular Hemoglobin 25.8 pg (26-34); Mean Platelet Volume 9.6 fl (7.4-10.4); Platelet Count Result 170 k/mm3 (150-375); Red Blood Count 4.26 M/mm3 (4.6-6.20)
[2023-03-05] MEDS: hydrALAZINE HCL 50 MG TABLET 100 MG PO (04:56)
[2023-03-05 05:09] LABS: Alanine Aminotransferase 12 U/L (6-50); Albumin Level 4.1 g/dL (3.5-5.1); Alkaline Phosphatase 48 U/L (38-126); Anion Gap 12 mmol/L (8-16); Aspartate Amino Transferase 17 U/L (17-59); Bilirubin,Total 0.6 mg/dL (0.2-1.3); Blood Urea Nitrogen 34 mg/dL (9-20); Carbon Dioxide 28 mmol/L (22-30); Chloride 96 mmol/L (98-107); Estimated CRCL calculation 17 ml/min; Estimated Glomerular Filt Rate 13; Glucose 87 mg/dL (65-110); Potassium 4.1 mmol/L (3.4-5.0); Sodium 136 mmol/L (137-145)
[2023-03-05] MEDS: ISOSORBIDE MONONITRATE 30 MG TAB.ER.24H PO (08:30)
[2023-03-05] MEDS: lisinopriL 20 MG TABLET PO (08:30)
[2023-03-05] MEDS: PANTOPRAZOLE 40 MG TABLET PO (08:30)
[2023-03-05] MEDS: LORATADINE 10 MG TABLET PO (08:30)
[2023-03-05] MEDS: ASPIRIN 81 MG ENTERIC TABLET PO (08:30)
[2023-03-05] MEDS: METOPROLOL SUCCINATE EXT REL 100 MG TABCR PO (08:31)
[2023-03-05] MEDS: FUROSEMIDE 80 MG TABLET PO (08:31)
[2023-03-05] MEDS: FLUTICASONE PROPIONATE 0.05% NA SPR 16 GM BTL (*BKC) 1 SPRAY NASAL (08:31)
[2023-03-05] MEDS: FLUTICASONE/SALMETEROL 115-21 MCG INHALER 1 PUFF 2 PUFF INHALATION (08:56)
--- NOTE | 2023-03-05 10:51 | P.PNNP_ITS ---
Progress Note: A&P Assessment and Plan (1) End stage renal disease: Code(s): N18.6 - End stage renal disease Status: Chronic Assessment and Plan: * HD yesterday * continue M/W/F schedule while hospitalized * follow electrolytes, volume status, and clearance (2) Shortness of Breath: Code(s): R06.02 - Shortness of breath Status: Acute Assessment and Plan: * resolved * presumably due to fluid overload +/- hypertension * elevated BNP on admission * troponins negative x 3 * follow respiratory status * continue home diuretics (3) Essential hypertension: Code(s): I10 - Essential (primary) hypertension Status: Chronic Assessment and Plan: * elevated on admission but better * resumed home medications * fluid removal with HD yesterday assisted some * follow trend of hemodynamics (4) Anemia: Code(s): D64.9 - Anemia, unspecified Status: Chronic Assessment and Plan: * due to ESRD * H/H at goal * Epogen with HD * follow trend (5) MICHELLE (obstructive sleep apnea): Code(s): G47.33 - Obstructive sleep apnea (adult) (pediatric) Status: Chronic Assessment and Plan: * compliance with BiPAP/CPAP questionable * continue while hospitalized Not opposed to discharge from renal perspective if otherwise medically stable Will continue to follow. Subjective Date/time seen: 03/05/23 10:51 Interval history: Follow-up for end stage renal disease on hemodialysis. Tolerated hemodialysis treatment yesterday afternoon without any issues or problems; breathing/respiratory status seems back to baseline; no apparent distress noted at the time of my visit; no other issues/events overnight or earlier this morning. Exam Narrative: General: WD/WN male in NAD Heart: normal S1 and S2; no rub Lungs: clear to auscultation; few crackles at the bases Abdomen: soft, nontender, nondistended, positive bowel sounds Extremities: no cyanosis or clubbing; no edema Skin: warm and dry Objective Data Vital Signs Vital Signs: Vital Signs Temp Pulse Resp BP Pulse Ox O2 Del Method 03/05/23 10:30 154/98 H 03/05/23 10:00 74 03/05/23 08:00 82 03/05/23 08:31 82 03/05/23 08:00 Room Air 03/05/23 07:57 98.5 F 83 22 H 164/106 H 98 03/05/23 06:31 175/109 H 03/05/23 06:00 78 03/05/23 04:00 Room Air 03/05/23 04:35 97.3 F L 77 15 180/108 H 99 03/04/23 22:00 82 03/05/23 04:00 75 03/05/23 02:00 73 03/05/23 00:00 74 03/04/23 23:33 97.2 F L 75 15 121/64 97 03/04/23 23:49 Room Air 03/04/23 20:00 76 03/04/23 20:00 Room Air 03/04/23 21:01 77 03/04/23 20:15 97.6 F 74 16 143/71 H 96 03/04/23 20:12 82 18 95 Room Air 03/04/23 20:11 18 03/04/23 18:56 97.7 F 67 16 145/88 H 03/04/23 18:15 80 154/86 H 03/04/23 18:00 77 146/82 H 03/04/23 18:00 80 03/04/23 17:40 78 137/78 03/04/23 17:20 77 147/80 H 03/04/23 17:00 77 144/85 H 03/04/23 16:00 71 03/04/23 16:40 75 155/93 H 03/04/23 16:20 75 161/93 H 03/04/23 16:00 71 158/82 H 03/04/23 15:40 76 162/93 H Intake/Output Intake/Output: Intake & Output 03/02/23 03/03/23 03/04/23 03/05/23 23:59 23:59 23:59 23:59 Intake Total 1880 1010 Output Total 3150 Balance -1270 1010 Meds/Results Radiology Results: ITS Impressions Chest X-Ray 03/04/23 07:33 IMPRESSION: 1. Stable small pleural effusions, left worse than right. 2. Stable airspace opacities in right lower lung zone and left mid and lower lung zones, consistent with atelectasis/scarring or less likely pneumonia. 3. Cardiomegaly. Labs Labs: Laboratory Tests 03/05/23 04:17 03/05/23 04:17 Calcium 9.0 Total Bilirubin 0.6 AST 17 ALT 12 Alkaline Phosphatase 48 Total Protein 7.0 Albumin 4.1
--- NOTE | 2023-03-05 11:08 | P.DS_ITS ---
DS: Admitting Diagnosis Discharge Date 03/05/23 Admitting Diagnosis Shortness of breath adn chest pain DS: Discharge Diagnosis Discharge Diagnosis (1) Chest pain: Qualifiers: Chest pain type: unspecified Qualified Code(s): R07.9 - Chest pain, unspecified Code(s): R07.9 - Chest pain, unspecified Status: Acute (2) Shortness of Breath: Code(s): R06.02 - Shortness of breath Status: Acute (3) End-stage renal disease on hemodialysis: Code(s): N18.6 - End stage renal disease; Z99.2 - Dependence on renal dialysis Status: Acute (4) Coronary artery disease: Code(s): I25.10 - Atherosclerotic heart disease of [place] coronary artery without angina pectoris Status: Acute (5) COPD (chronic obstructive pulmonary disease): Code(s): J44.9 - Chronic obstructive pulmonary disease, unspecified Status: Acute DS: Summary Hospital Course Reason for hospitalization: 58yo male with ESRD, COPD and CAD here for chest pain and shortness of breath. Please see H&P for details. Hospital Course: Patient presents to the emergency room with complaints of shortness of breath and chest pain. Blood pressure was 182/113. EKG showing normal sinus rhythm, left atrial enlargement, IVCD and late transition. He had borderline ST-T wave changes in the inferior and lateral leads. Overall EKG appeared about the same from November except that the IVCD was new. Chest x-ray showed small pleural effusions and stable airspace opacities in the right lower lung zone and left mid and lower lung zones. Potassium was 5.3. His BNP was greater than 30K. Troponin was negative x3. He stated he had chest pain described as tightness without radiation that lasted about 10 hours before presentation. Patient received aspirin and Lasix in the emergency room. He also was given hydralazine, Imdur, lisinopril and Lopressor which are his home medications. Patient states his symptoms resolved with these therapies. He states that he was compliant with dialysis on 03/02 and believes he received a full treatment. He states that he is not on furosemide at home but this is on his medication list and on the list from his field artillery radar operator's note from 03/03. He does not check his blood pressure at home. He has sleep apnea but does not tolerate the CPAP. He states he will be following up with his doctor regarding this for other options. Untreated sleep apnea probably contributing to his high blood pressure. Nephrology was consulted. Patient was admitted to the IMU. He was monitored on telemetry. He had no further episodes or chest pain or SOB. [place] sympoms related to either HTN urgency with demand ischemia and/or fluid overload. Telemetry showing only PVCs. He did undergo dialysis with removal of 2.5L. Blood pressure improved. Echocardiogram performed but results pending. Patient states that his parathyroid surgery has been canceled. Strongly encouraged patient to return to his field artillery radar operator's for further evaluation and testing. He states field artillery radar operator does want to proceed with a stress test. Patient is eager for discharge. He voices understanding that he will return if he has recurrent chest pain. Patient overall did well and was able to be disc harged home on 03/05/2023. Status at Discharge Cognitive/behavioral status at discharge: stable Time Spent with Patient Time attestation: Total time spent providing and/or coordinating discharge services: 35 minutes Time spent: Greater than 30 minutes Exam Narrative: AF 98.3 154/96 70 20 99%ra Gen - NARD Chest - left base crackles o/w clear CV - RRR S1/S2. Tele showing PVCs Abd - Soft, NT/ND, Positive BS Ext - No pedal edema. thrill and bruit left upper arm Neuro - Alert and oriented. Nonfocal exam. Psych - Nml mood and affect Skin - Warm and dry DS: Data Data Completed and Pending Labs on day of discharge: Labs from last 24 hours 03/05/23 03/04/23 03/04/23 04:17 12:48 10:33 WBC 5.0 RBC 4.26 L Hgb 11.0 L Hct 36.2 L MCV 85.0 MCH 25.8 L MCHC 30.4 L RDW 19.0 H Plt Count 170 MPV 9.6 Sodium 136 L Potassium 4.1 Chloride 96 L Carbon Dioxide 28 Anion Gap 12 BUN 34 H D Creatinine 4.80 H Estim Creat Clear Calc 17 Estimated GFR 13 L Glucose 87 Calcium 9.0 Total Bilirubin 0.6 AST 17 ALT 12 Alkaline Phosphatase 48 Troponin I 0.017 D 0.024 Total Protein 7.0 Albumin 4.1 Hep Bs Antigen Negative Hep Bs Antibody Indeterminate Discharge Plan Discharge Attending physician on discharge: Garry Simon Consulting providers: Destiney Moses Discharging Clinician: Garry Simon Anticipated Discharge Date/Time: 03/05/23 11:23 Patient Disposition: Home, Self-Care Activity: no straining Diet: heart healthy and renal Discharge Instructions: Check blood pressure 1 to 2 times a day. Record and bring into your doctor for review. Call your doctor if your blood pressure is greater than 180/110. Take precautions to avoid falls. Rise slowly from a lying or sitting position. Pause before standing or walking. Continue to try to use CPAP at night and with naps. Contact your doctor or call 911 and come to the Emergency Room if you have recurrent chest pain or other worrisome symptoms. Avoid NSAIDs (ibuprofen, naproxen, Aleve). Tylenol is safe to take. Follow-up with your primary care provider in 1-2 weeks. Please call for appointment. Follow-up with Medical Services Manager next week. Please call for an appointment. Thank you for using [facility] for your health care needs. Patient Instructions: Antibiotic Form, How to Stop Smoking (GEN) Stand Alone Forms: General Discharge Information Follow-up/Referrals: Dre Mckeon MD [Primary Care Provider] - Call for Appointment Discharge Medications: Continued lisinopril 20 mg tablet 20 mg PO BID metoprolol succinate 100 mg tablet extended release 24 hr 100 mg PO BID rosuvastatin [Crestor] 10 mg tablet 10 mg PO QHS Qty: 90 1RF aspirin [Adult Aspirin Regimen] 81 mg tablet,delayed release (DR/EC) 81 mg PO DAILY albuterol sulfate 90 mcg/actuation HFA aerosol inhaler 2 puff inhalation Q4H PRN (Reason: Dyspnea) isosorbide mononitrate 30 mg tablet extended release 24 hr 30 mg PO DAILY mometasone 50 mcg/actuation spray,non-aerosol 1 spray intranasal DAILY Rx Instructions: administer into each nostril Epogen 10,000 unit/mL solution 8,000 unit IV 3XW Rx Instructions: m,w, f with dialysis heparin pork 1,000 units See Rx Instructions .ROUTE .COMPLEX Patient Comments: at dialysis Rx Instructions: 1,000 units intravenously ;1000 units with dialysis (hourly dose)2000 units with dialysis treatment Venofer 50 mg iron/2.5 mL solution 100 mg IV WEEKLY Patient Comments: at dialysis Rx Instructions: administer over 2-5 mins loratadine [Allergy Relief (loratadine)] 10 mg tablet 10 mg PO DAILY hydralazine 100 mg tablet 100 mg PO TID pantoprazole [Protonix] 40 mg tablet,delayed release (DR/EC) 40 mg PO BID Qty: 14 0RF fluticasone propion-salmeterol [Advair Diskus] 250-50 mcg/dose blister with device 1 inh inhalation BID Qty: 60 3RF furosemide [Lasix] 80 mg tablet 80 mg PO QAM Qty: 30 1RF Date of admission: 03/04/23 08:57 Primary Care Provider: Dre Mckeon Admitting Provider: Garry Simon Attending physician on admission: Garry Simon Condition: Stable
--- NOTE | 2023-03-08 07:24 | PC.NURSE ---
ECHO report shown to Dr. Simon. Faxed to Dr. Walker.
== END 2023-03-05 11:57 | disposition home or self-care (01) ==
LOC: ANHED 08:34 → ANHIMU 09:08
PROVIDERS: Emergency Medicine; Internal Medicine Nephrology; Student in an Organized Health Care Education/Training Program; Admitting Provider Internal Medicine; Emergency Provider Emergency Medicine; PCP Family Medicine; Visit Provider Internal Medicine
DX: R07.9 Chest pain, unspecified (principal); R06.02 Shortness of breath; I13.2 Hypertensive heart and chronic kidney disease with heart failure and with stage 5 chronic kidney disease, or end stage renal disease; N18.6 End stage renal disease; I50.20 Unspecified systolic (congestive) heart failure; D63.1 Anemia in chronic kidney disease; Z99.2 Dependence on renal dialysis; I25.10 Atherosclerotic heart disease of native coronary artery without angina pectoris; J44.9 Chronic obstructive pulmonary disease, unspecified; Z95.1 Presence of aortocoronary bypass graft; N25.81 Secondary hyperparathyroidism of renal origin; Z20.822 Contact with and (suspected) exposure to COVID-19; N40.0 Benign prostatic hyperplasia without lower urinary tract symptoms; K21.9 Gastro-esophageal reflux disease without esophagitis; I45.9 Conduction disorder, unspecified; G47.33 Obstructive sleep apnea (adult) (pediatric); J30.9 Allergic rhinitis, unspecified; Z99.89 Dependence on other enabling machines and devices; R91.8 Other nonspecific abnormal finding of lung field; J90 Pleural effusion, not elsewhere classified; E55.9 Vitamin D deficiency, unspecified; Z87.891 Personal history of nicotine dependence; Z79.82 Long term (current) use of aspirin; Z79.51 Long term (current) use of inhaled steroids; Z79.899 Other long term (current) drug therapy
CPT/HCPCS: 36415; 71046; 80053; 83690; 83880; 84484; 85025; 85027; 85610; 85730; 86706; 87340; 93005; 93306; 94640; 96374; 99285; A9270; G0257; G0378; J1940; J7030

== ENCOUNTER 2023-04-17 06:42 | Observation (INO) | payer MEDICARE, OTHER, SELFPAY ==
[2023-04-17] VITALS (18 sets, daily range): BP systolic 132–179; BP diastolic 84–108; PULSE 62–77; RESP 16–23; TEMP 36.2–36.8; O2SAT 96–99; BMI 22.6
--- NOTE | ~2023-04-17 | XR_ITS ---
EXAMINATION: XR chest 2V DATE: 04/17/2023 07:37 INDICATION: Chest pain. TECHNIQUE: Frontal and lateral views of the chest were obtained. COMPARISON: Chest 2 views 03/04/2023 FINDINGS: There are small pleural effusions, left worse than right. There are airspace opacities in r ight lower lung zone and left mid and lower lung zones. No pneumothorax. Cardiomegaly is noted. There is a closure device at the left atrial appendage. Median sternotomy wires and mediastinal surgical c lips are seen, likely from prior coronary artery bypass grafting. IMPRESSION: 1. Stable small pleural effusions, left worse than right. 2. Stable airspace opacities in right lower lung zone and left mid and lower lung zones, consistent w ith atelectasis/scarring or less likely pneumonia. 3. Cardiomegaly. Reviewed, dictated and finalized at location E. RMATION TECHNOLOGY AUDITOR IMPRESSION: 1. Stable small pleural effusions, left worse than right. 2. Stable airspace opacities in right lower lung zone and left mid and lower jules ng zones, consistent with atelectasis/scarring or less likely pneumonia. 3. Cardiomegaly.
--- NOTE | 2023-04-17 06:47 | ECG_ITS ---
Measurements Intervals [place] Rate: 67 P: 69 HI: 214 QRS: 56 QRSD: 112 T: 109 QT: 430 QTc: 456 Interpretive Statements SINUS RHYTHM WITH FIRST DEGREE AV BLOCK INTRAVENTRICULAR CONDUCTION DELAY BORDERLINE ST-T WAVE ABNORMALITY- LAT/HIGH LAT LEADS BASELINE ARTIFACT- I, II, III, AVR, AVL, V5 BORDERLINE ECG COMPARED TO ECG 03/04/2023 07:00:36 FIRST DEGREE AV BLOCK NOW PRESENT Electronically Signed On 04-17-2023 12:08:24 EMPLOYMENT OFFICER by Tong Urban D.O.
[2023-04-17] MEDS: ASPIRIN 81 MG CHEWABLE TABLET 324 MG PO (07:00)
[2023-04-17 07:02] LABS: Basophils Absolute Auto 0.1 K/mm3 (0.0-0.1); Basophils Percent Auto 1.4 % (0.2-1.2); Eosinophils Absolute Auto 0.2 K/mm3 (0-0.3); Eosinophils Percent Auto 3.3 % (0-4.4); Hematocrit 36.1 % (42.0-52.0); Hemoglobin 10.6 g/dL (14.0-18.0); Immature Granulocyte Absolute 0.02 K/mm3 (0.00-0.031); Immature Granulocyte Percent A 0.3 % (0-0.5); Lymphocytes Absolute Auto 0.86 K/mm3 (0.9-3.2); Lymphocytes Percent Auto 13.3 % (18.3-44.2); Mean Corpuscular HGB Conc 29.4 g/dl (32-36); Mean Corpuscular Hemoglobin 25.7 pg (26-34); Mean Corpuscular Volume 87.4 fl (80-100); Mean Platelet Volume 9.8 fl (7.4-10.4); Monocytes Absolute Auto 0.7 K/mm3 (0.1-0.6); Monocytes Percent Auto 11.2 % (2.6-8.5); Neutrophils Absolute Auto 4.6 K/mm3 (1.3-6.7); Neutrophils Percent Auto 70.5 % (45.5-73.1); Platelet Count Result 211 k/mm3 (150-375); Red Blood Count 4.13 M/mm3 (4.6-6.20); Red Cell Distribution Width 18.8 % (11.5-14.5); White Blood Count 6.5 K/mm3 (4.5-10.0)
--- NOTE | 2023-04-17 07:03 | PC.NURSE ---
Report to REVA Abraham.
[2023-04-17 07:14] LABS: Alanine Aminotransferase 12 U/L (6-50); Albumin Level 4.5 g/dL (3.5-5.1); Alkaline Phosphatase 46 U/L (38-126); Anion Gap 18 mmol/L (8-16); Aspartate Amino Transferase 17 U/L (17-59); Bilirubin,Total 0.6 mg/dL (0.2-1.3); Blood Urea Nitrogen 72 mg/dL (9-20); Calcium 9.1 mg/dL (8.4-10.2); Carbon Dioxide 19 mmol/L (22-30); Chloride 96 mmol/L (98-107); Estimated CRCL calculation 10 ml/min; Estimated Glomerular Filt Rate 6; Glucose 99 mg/dL (65-110); Lipase 223 U/L (23-300); Potassium 5.7 mmol/L (3.4-5.0); Sodium 133 mmol/L (137-145)
[2023-04-17 07:19] LABS: Anisocytosis 1+ (NORMAL); Platelet Estimate Adequate (Adequate); Schistocytes None Seen (NORMAL)
[2023-04-17 07:26] LABS: Troponin I 0.022 ng/mL (0.000-0.034)
[2023-04-17 07:33] LABS: INR 1.1; Prothrombin Time 14.9 Seconds (11.1-14.7)
[2023-04-17 07:34] LABS: Partial Thromboplastin Time 36.2 SECONDS (22.3-36.8)
[2023-04-17 07:37] LABS: NT Pro B Type Natriuretic Pept > 30000 pg/mL (19.9-100)
--- NOTE | 2023-04-17 07:46 | ED.SOB ---
HPI - SOB/Dyspnea General Chief Complaint: Shortness of Breath/Dyspnea Stated Complaint: SOB Time Seen by Provider: 04/17/23 06:54 History of Present Illness HPI Narrative: Patient is a 58-year-old male with history of end-stage renal disease and heart failure who presents ER with shortness of breath. Sudden onset this morning around 1 AM. Worse with laying back. Has mild central chest discomfort. No fevers chills or sweats. No productive cough. Sow Manager located at [facility]. Patient sees Dr. Moses here. Patient does still make urine and has been compliant with home medication. He receives dialysis Tuesday/Tuesday/Tuesday and has not missed a session. No new edema to the legs. Mild orthopnea. Related Data Home Medications Medication Instructions Recorded Confirmed aspirin 81 mg tablet,delayed 81 mg PO DAILY 03/05/21 04/17/23 release (Adult Aspirin Regimen) albuterol sulfate 90 mcg/actuation 2 puff inhalation Q4H PRN Dyspnea 12/09/21 04/17/23 aerosol inhaler epoetin jase 10,000 unit/mL 8,000 unit IV 3XW 09/02/22 04/17/23 injection solution (Epogen) heparin pork See Rx Instructions .Route .COMPLEX 09/02/22 04/17/23 iron sucrose 50 mg iron/2.5 mL 100 mg IV WEEKLY 09/02/22 04/17/23 intravenous solution (Venofer) isosorbide mononitrate 30 mg 30 mg PO DAILY 09/02/22 04/17/23 tablet,extended release 24 hr lisinopril 20 mg tablet 20 mg PO BID 09/02/22 04/17/23 metoprolol succinate 100 mg 100 mg PO BID 09/02/22 04/17/23 tablet,extended release 24 hr mometasone 50 mcg/actuation nasal 1 spray intranasal DAILY 09/02/22 04/17/23 spray hydralazine 100 mg tablet 100 mg PO TID 10/28/22 04/17/23 loratadine 10 mg tablet (Allergy 10 mg PO DAILY 03/04/23 04/17/23 Relief (loratadine)) Allergies Allergy/AdvReac Type Severity Reaction Status Date / Time bee venom protein (honey bee) Allergy Hives Verified 04/17/23 11:43 menaquinone-7 (vitamin K2) AdvReac Shakiness Verified 04/17/23 11:43 [vitamin K2] vitamin k Allergy Severe loss of Uncoded 04/17/23 11:43 consiousness Review of Systems Review of Systems: All systems reviewed & are unremarkable except as noted in HPI and below Constitutional: Constitutional: Reports no additional constitutional complaints ENT: Reports system reviewed and no additional complaints, except as documented Cardiovascular: Cardiovascular: Reports chest pain, Denies rapid heart rate and Denies radiating jaw, neck or arm pain Respiratory: Respiratory: Denies cough, Reports dyspnea and Denies wheezing Gastrointestinal: Gastrointestinal: Reports no additional gastrointestinal complaints Musculoskeletal: Musculoskeletal: Reports no additional musculoskeletal complaints PMFSH Past Medical History Medical History Benign prostatic hyperplasia Chest pain Coronary artery disease End-stage renal disease on hemodialysis Erythropoietin deficiency anemia Essential hypertension Gastroesophageal reflux disease GI bleed Heart failure with reduced ejection fraction History of shingles Hyperparathyroidism due to renal insufficiency Nephrolithiasis Obstructive sleep apnea treated with BiPAP Osteoarthritis of right knee Shift work sleep disorder Thyroid nodule incidentally noted on imaging study Vitamin D deficiency Surgical History Surgical History History of cardiac catheterization History of cystoscopy History of four vessel coronary artery bypass graft (02/2021) SMITH to LAD, SVG to PDA, OM 1, OM 2. History of melanoma excision (2004) Right neck. History of total right knee replacement (02/2022) History of ureter stent Status post creation of arteriovenous fistula (05/2020) Family History Family History Sibling Diabetes mellitus half sister Mother Family history of arthritis Fathe
[2023-04-17] MEDS: NITROGLYCERIN OINTMENT 1 INCH DOSE 0.5 INCH TRANSDERM (08:06)
[2023-04-17] MEDS: FUROSEMIDE INJ 100 MG/10 ML VIAL IV PUSH (09:38)
[2023-04-17 10:12] LABS: Troponin I 0.016 ng/mL (0.000-0.034)
--- NOTE | 2023-04-17 11:34 | ADMGEN ---
This patient, Audi Rosenthal, was admitted to IMU Room 201-01. Patient/family oriented to hospital policies and general routines including ID bracelet, bed and alarms, visiting hours, pain management, procedures, bathroom and other care routines, personal items, smoking policy, room service/diet, and visiting hours. Information on how to activate the Rapid Response Team has been discussed. Patient/Family are encouraged to report perceived risks to care and to ask questions if they do not understand what they are told or what they should do.
--- NOTE | 2023-04-17 12:55 | P.CONNP_ITS ---
Assessment and Plan Assessment and plan (1) End stage renal disease: Code(s): N18.6 - End stage renal disease Status: Chronic Assessment and Plan: * HD tomorrow * continue M/W/F schedule while hospitalized * follow electrolytes, volume status, and clearance (2) Chest pain: Qualifiers: Chest pain type: unspecified Qualified Code(s): R07.9 - Chest pain, unspecified Code(s): R07.9 - Chest pain, unspecified Status: Acute Assessment and Plan: * EKG negative * troponins not indicative of ischemia * presumably more related to #3 * follow-up with primary special education supervisor as an outpatient (3) Shortness of Breath: Code(s): R06.02 - Shortness of breath Status: Acute Assessment and Plan: * presumably due to fluid overload +/- hypertension * s/p IV diuretics in the ER * resume oral diuretic therapy * push fluid removal with dialysis tomorrow and reassess * may need dry weight adjustment * follow respiratory status * continue home diuretics (4) Essential hypertension: Code(s): I10 - Essential (primary) hypertension Status: Chronic Assessment and Plan: * elevated on admission * resume home medications * HD should help some tomorrow * follow trend of hemodynamics (5) Anemia: Code(s): D64.9 - Anemia, unspecified Status: Chronic Assessment and Plan: * due to ESRD * H/H at goal * Epogen with HD * follow trend (6) MICHELLE (obstructive sleep apnea): Code(s): G47.33 - Obstructive sleep apnea (adult) (pediatric) Status: Chronic Assessment and Plan: * compliance with BiPAP/CPAP questionable * continue while hospitalized (if agreeable) I will continue follow the patient with you while he remains hospitalized and make further recommendations as needed. Thank you for allowing me to participate in care of this patient. History of Present Illness Reason for Consult Consult date: 04/17/23 Reason for consult: end stage renal disease Chief Complaint Chief complaint: Chest Pain, Volume Overload History of Present Illness Narrative: The patient is a 58-year-old male with extensive past medical history as outlined below who presented to [facility] Emergency room for further evaluation of chest tightness and shortness of breath The patient apparently woke up around 1:30AM stating that he could not breathe. The shortness of breath had awoken him from sleep and he also reported having some chest discomfort that he describes as a stiffness in his mid chest. No other associated symptoms with regard to nausea, vomiting, diaphoresis, r adiation of the pain, palpitations or worsening pain with deep inspiration. he denies any fevers, chills, blurry vision, dysphagia, dysuria, hematuria, back pain, or abdominal pain. He states that he has had episodes like this in the past but usually is able to hold out until his dialysis treatment on Tuesday at which point his symptoms improve. However, this time, the shortness of breath and chest pain continued to persist until eventually came to the emergency room for further assessment. Workup and evaluation emergency room demonstrated the patient be hemodynamically stable although he was somewhat hypertensive with a systolic in the 170s to 180s. He was not tachycardic or hypoxic and initial EKG did not show any acute ischemic changes. His initial troponin was negative and his chest x-ray showed small pleural effusions with the left greater than right in association with airspace opacities i
--- NOTE | 2023-04-17 12:55 | PM.CNNEP ---
Assessment and Plan Assessment and plan (1) End stage renal disease: Code(s): N18.6 - End stage renal disease Status: Chronic Assessment and Plan: HD tomorrow continue M/W/F schedule while hospitalized follow electrolytes, volume status, and clearance (2) Chest pain: Qualifiers: Chest pain type: unspecified Qualified Code(s): R07.9 - Chest pain, unspecified Code(s): R07.9 - Chest pain, unspecified Status: Acute Assessment and Plan: EKG negative troponins not indicative of ischemia presumably more related to #3 follow-up with primary grinder operator external tool as an outpatient (3) Shortness of Breath: Code(s): R06.02 - Shortness of breath Status: Acute Assessment and Plan: presumably due to fluid overload +/- hypertension s/p IV diuretics in the ER resume oral diuretic therapy push fluid removal with dialysis tomorrow and reassess may need dry weight adjustment follow respiratory status continue home diuretics (4) Essential hypertension: Code(s): I10 - Essential (primary) hypertension Status: Chronic Assessment and Plan: elevated on admission resume home medications HD should help some tomorrow follow trend of hemodynamics (5) Anemia: Code(s): D64.9 - Anemia, unspecified Status: Chronic Assessment and Plan: due to ESRD H/H at goal Epogen with HD follow trend (6) MICHELLE (obstructive sleep apnea): Code(s): G47.33 - Obstructive sleep apnea (adult) (pediatric) Status: Chronic Assessment and Plan: compliance with BiPAP/CPAP questionable continue while hospitalized (if agreeable) I will continue follow the patient with you while he remains hospitalized and make further recommendations as needed. Thank you for allowing me to participate in care of this patient. History of Present Illness Reason for Consult Consult date: 04/17/23 Reason for consult: end stage renal disease Chief Complaint Chief complaint: Chest Pain, Volume Overload History of Present Illness Narrative: The patient is a 58-year-old male with extensive past medical history as outlined below who presented to [facility] Emergency room for further evaluation of chest tightness and shortness of breath The patient apparently woke up around 1:30AM stating that he could not breathe. The shortness of breath had awoken him from sleep and he also reported having some chest discomfort that he describes as a stiffness in his mid chest. No other associated symptoms with regard to nausea, vomiting, diaphoresis, radiation of the pain, palpitations or worsening pain with deep inspiration. he denies any fevers, chills, blurry vision, dysphagia, dysuria, hematuria, back pain, or abdominal pain. He states that he has had episodes like this in the past but usually is able to hold out until his dialysis treatment on Tuesday at which point his symptoms improve. However, this time, the shortness of breath and chest pain continued to persist until eventually came to the emergency room for further assessment. Workup and evaluation emergency room demonstrated the patient be hemodynamically stable although he was somewhat hypertensive with a systolic in the 170s to 180s. He was not tachycardic or hypoxic and initial EKG did not show any acute ischemic changes. His initial troponin was negative and his chest x-ray showed small pleural effusions with the left greater than right in association with airspace opacities in the mid left lobe and bilateral lobes as well as cardiomegaly. His repeat troponins continued to remain negative and his other routine blood test demonstrated chronic anemia and labs consistent with his known history of end-stage renal disease along with an elevated BNP. He was given aspirin, nitroglycerin, and IV diuretics in the hopes that this would stabilize his symptoms which seem to occur with improveme
[2023-04-17 12:59] LABS: Troponin I 0.016 ng/mL (0.000-0.034)
--- NOTE | 2023-04-17 13:04 | PM.IMHP ---
H&P: HPI History of Present Illness Date/Time: 04/17/23 13:04 Chief Complaint: Short of breath and CP Narrative: 58yo male with ESRD, HTN, CAD, MICHELLE and CHF here for shortness of breath and chest pain. Patient awoke around 130 this morning stating ?I could not breathe?. Shortness of breath woke him up from sleep. He is also having chest pain that he describes as ?stiff and tight? in the mid chest bilaterally. No nausea, vomiting or diaphoresis. No radiation of the pain. Pain is not pleuritic or palpable. No palpitations. He follows with cardiology at [facility]. He had a 4 vessel coronary artery bypass grafting in February 2021. Patient's last Lexiscan stress test was in November 2021 which showed large area of mild infarct involving left ventricular apex, apical and mid anterior segments, apical lateral segment and mid to basal anterior lateral segments with global hypokinesis with EF of 37%. Patient has been hospitalized as recently as February 2023 for similar presentation. He states that he has these episodes of chest pain and shortness of breath at night that occur about 2-3 times per month. Most the time, he is able to stay at home and wait to have his dialysis later that day. In February 2023, he did have an echocardiogram which showed concentric LVH with good systolic function and grade 1 diastolic noncompliance with EF of 50-55% as well as right ventricular and right atrial enlargement. Patient is compliant with his dialysis that he gets at [id number]. He has a left upper extremity fistula placed about 2.5 years ago which is around the time he started dialysis. He did have dialysis on 04/15/2023 but states they did not remove any fluid because he was at his dry weight. He denies any weight loss, fever, chills, vision changes, hearing changes, odynophagia, dysphagia, dysuria, hematuria, abdominal pain, back pain, numbness/tingling/weakness in arms or legs. He does have a cough since he had pneumonia last year productive of clear sputum and some slight wheezing although the wheezing appears to be unrelated the cough. He did quit smoking about 2 years ago although this is questionable. He was seen by his doctor about the cough and was given an inhaler; he may have COPD but he is unsure. Patient still makes urine and voids 3-4 times a day with normal volumes. He does admit to working all day yesterday and drinking plenty of fluids. Because of the chest pain and shortness of breath, patient presented to the emergency room for evaluation. In the ED, his BP was 179/108. He was not tachycardic or hypoxic. EKG reviewed showing normal sinus rhythm with IVCD , first degree AVB and borerline ST-T wave changes. No change from prior except first degree new. CXR showing stable findings with small (L>R) pleural effusions, airspace opacities in the left midlobe and bilateral lower lobes and CMG. Troponin negative x 3. Hgb 10.6 but has chronic anemia. Sodium 133, potassium 5.7 and bicarb 19 with anion gap of 19. BUN/Cr elevated not unexpectedly. BNP >30K. He was given ASA, NTP and Lasix IV. He was able to void a good volume. he was admitted for further care. He denies SOB or CP currently. He has not been wearing his CPAP at night recently. He is due for parathyroid surgery next month. Review of Systems Review of Systems: All systems reviewed & are unremarkable except as noted in HPI and below PMFSH Past Medical History Medical History Benign prostatic hyperplasia Chest pain Coronary artery disease End-stage renal disease on hemodialysis Erythropoietin deficiency anemia Essential hypertension Gastroesophageal reflux disease GI bleed Heart failure with reduced ejection fraction History of shingles Hyperparathyroidism due to renal insufficiency Nephrolithiasis Obstructive sleep apnea treated with BiPAP Osteoarthritis of right knee Shift work sle
[2023-04-17 14:48] LABS: Anion Gap 18 mmol/L (8-16); Blood Urea Nitrogen 75 mg/dL (9-20); Calcium 8.8 mg/dL (8.4-10.2); Carbon Dioxide 19 mmol/L (22-30); Chloride 96 mmol/L (98-107); Estimated CRCL calculation 9 ml/min; Estimated Glomerular Filt Rate 6; Glucose 158 mg/dL (65-110); Potassium 5.4 mmol/L (3.4-5.0); Sodium 133 mmol/L (137-145)
[2023-04-17] MEDS: hydrALAZINE HCL 50 MG TABLET 100 MG PO (16:27)
[2023-04-17] MEDS: SODIUM ZIRCONIUM CYCLOSILICATE 10 GM POWD.PACK PO (18:43)
[2023-04-17] MEDS: FLUTICASONE/SALMETEROL 115-21 MCG INHALER 1 PUFF 2 PUFF INHALATION (20:09)
[2023-04-17] MEDS: METOPROLOL SUCCINATE EXT REL 100 MG TABCR PO (21:01)
[2023-04-17] MEDS: ROSUVASTATIN 10 MG TABLET PO (21:01)
[2023-04-17] MEDS: PANTOPRAZOLE 40 MG TABLET PO (21:01)
[2023-04-17] MEDS: lisinopriL 20 MG TABLET PO (21:01)
[2023-04-18] VITALS (27 sets, daily range): BP systolic 129–184; BP diastolic 73–105; PULSE 68–88; RESP 16–18; TEMP 36.4–37; O2SAT 96–98
[2023-04-18] MEDS: hydrALAZINE HCL 20 MG/ML VIAL 10 MG IV PUSH ×2 (00:32→05:01)
[2023-04-18 04:20] LABS: Basophils Absolute Auto 0.1 K/mm3 (0.0-0.1); Basophils Percent Auto 1.3 % (0.2-1.2); Eosinophils Absolute Auto 0.2 K/mm3 (0-0.3); Eosinophils Percent Auto 3.5 % (0-4.4); Hematocrit 32.2 % (42.0-52.0); Hemoglobin 9.9 g/dL (14.0-18.0); Immature Granulocyte Absolute 0.01 K/mm3 (0.00-0.031); Immature Granulocyte Percent A 0.2 % (0-0.5); Lymphocytes Absolute Auto 0.76 K/mm3 (0.9-3.2); Lymphocytes Percent Auto 14.1 % (18.3-44.2); Mean Corpuscular HGB Conc 30.7 g/dl (32-36); Mean Corpuscular Hemoglobin 26.5 pg (26-34); Mean Corpuscular Volume 86.1 fl (80-100); Mean Platelet Volume 9.9 fl (7.4-10.4); Monocytes Absolute Auto 0.6 K/mm3 (0.1-0.6); Monocytes Percent Auto 11.5 % (2.6-8.5); Neutrophils Absolute Auto 3.7 K/mm3 (1.3-6.7); Neutrophils Percent Auto 69.4 % (45.5-73.1); Platelet Count Result 199 k/mm3 (150-375); Red Blood Count 3.74 M/mm3 (4.6-6.20); Red Cell Distribution Width 18.8 % (11.5-14.5); White Blood Count 5.4 K/mm3 (4.5-10.0)
[2023-04-18 04:59] LABS: Anion Gap 16 mmol/L (8-16); Blood Urea Nitrogen 83 mg/dL (9-20); Calcium 8.9 mg/dL (8.4-10.2); Carbon Dioxide 19 mmol/L (22-30); Chloride 95 mmol/L (98-107); Estimated CRCL calculation 8 ml/min; Estimated Glomerular Filt Rate 6; Glucose 88 mg/dL (65-110); Phosphorus 9.5 mg/dL (2.5-4.5); Potassium 5.5 mmol/L (3.4-5.0); Sodium 130 mmol/L (137-145)
[2023-04-18 05:29] LABS: Hepatitis B Surface Antigen Negative (Negative)
[2023-04-18 05:48] LABS: Hepatitis B Surface Anti Res Indeterminate
[2023-04-18] MEDS: FLUTICASONE PROPIONATE 0.05% NA SPR 16 GM BTL (*BKC) 2 SPRAY NASAL (08:19)
[2023-04-18] MEDS: HEPARIN SODIUM 1,000 UNITS/ML VIAL 1000 UNITS IV PUSH (09:10)
[2023-04-18] MEDS: HEPARIN SODIUM 1,000 UNITS/ML VIAL 500 UNITS IV PUSH ×3 (09:13→11:15)
--- NOTE | 2023-04-18 09:46 | P.PNNP_ITS ---
Progress Note: A&P Assessment and Plan (1) End stage renal disease: Code(s): N18.6 - End stage renal disease Status: Chronic Assessment and Plan: * HD today * continue M/W/F schedule while hospitalized * follow electrolytes, volume status, and clearance (2) Chest pain: Qualifiers: Chest pain type: unspecified Qualified Code(s): R07.9 - Chest pain, unspecified Code(s): R07.9 - Chest pain, unspecified Status: Acute Assessment and Plan: * EKG negative * troponins not indicative of ischemia * presumably more related to #3 * follow-up with primary door glass installer as an outpatient (3) Shortness of Breath: Code(s): R06.02 - Shortness of breath Status: Acute Assessment and Plan: * presumably due to fluid overload +/- hypertension * s/p IV diuretics in the ER * resume oral diuretic therapy * push fluid removal with dialysis today and reassess * may need dry weight adjustment * follow respiratory status * continue home diuretics (4) Essential hypertension: Code(s): I10 - Essential (primary) hypertension Status: Chronic Assessment and Plan: * elevated on admission * resume home medications * HD should help some * follow trend of hemodynamics (5) Anemia: Code(s): D64.9 - Anemia, unspecified Status: Chronic Assessment and Plan: * due to ESRD * H/H at goal * Epogen with HD * follow trend (6) MICHELLE (obstructive sleep apnea): Code(s): G47.33 - Obstructive sleep apnea (adult) (pediatric) Status: Chronic Assessment and Plan: * compliance with BiPAP/CPAP questionable * continue while hospitalized (if agreeable) Will continue to follow. Subjective Date/time seen: 04/18/23 09:46 Interval history: Follow-up for end-stage renal disease on hemodialysis. Tolerating hemodialysis treatment at the time of my visit (seen on HD at 9:40AM); no apparent distress voiced currently; no issues/events overnight or earlier this morning. Exam Narrative: General: WD/WN male in NAD Heart: normal S1 and S2; no rub Lungs: clear to auscultation; decreased at the bases Abdomen: soft, nontender, nondistended, positive bowel sounds Extremities: no cyanosis or clubbing; no edema Skin: warm and dry Objective Data Vital Signs Vital Signs: Vital Signs Temp Pulse Resp BP Pulse Ox O2 Del Method 04/18/23 09:13 69 136/80 04/18/23 08:53 97.5 F L 71 16 142/80 H 04/18/23 08:00 74 04/18/23 08:00 Room Air 04/18/23 08:00 98.6 F 72 16 156/76 H 97 04/18/23 06:00 69 04/18/23 04:00 Room Air 04/18/23 04:00 98.4 F 74 18 178/98 H 98 04/18/23 04:00 71 04/18/23 02:00 73 04/18/23 00:00 69 04/17/23 22:00 77 04/17/23 20:00 71 04/18/23 00:00 Room Air 04/18/23 00:29 184/105 H 04/17/23 22:54 97.2 F L 75 18 176/103 H 98 04/17/23 22:19 Room Air 04/17/23 20:00 Room Air 04/17/23 21:01 72 04/17/23 19:54 97.7 F 71 18 154/88 H 97 04/17/23 18:00 71 04/17/23 16:00 68 04/17/23 16:00 97 Room Air 04/17/23 16:00 97.7 F 69
--- NOTE | 2023-04-18 09:46 | PM.PNNEP ---
Progress Note: A&P Assessment and Plan (1) End stage renal disease: Code(s): N18.6 - End stage renal disease Status: Chronic Assessment and Plan: HD today continue M/W/F schedule while hospitalized follow electrolytes, volume status, and clearance (2) Chest pain: Qualifiers: Chest pain type: unspecified Qualified Code(s): R07.9 - Chest pain, unspecified Code(s): R07.9 - Chest pain, unspecified Status: Acute Assessment and Plan: EKG negative troponins not indicative of ischemia presumably more related to #3 follow-up with primary legal referee as an outpatient (3) Shortness of Breath: Code(s): R06.02 - Shortness of breath Status: Acute Assessment and Plan: presumably due to fluid overload +/- hypertension s/p IV diuretics in the ER resume oral diuretic therapy push fluid removal with dialysis today and reassess may need dry weight adjustment follow respiratory status continue home diuretics (4) Essential hypertension: Code(s): I10 - Essential (primary) hypertension Status: Chronic Assessment and Plan: elevated on admission resume home medications HD should help some follow trend of hemodynamics (5) Anemia: Code(s): D64.9 - Anemia, unspecified Status: Chronic Assessment and Plan: due to ESRD H/H at goal Epogen with HD follow trend (6) MICHELLE (obstructive sleep apnea): Code(s): G47.33 - Obstructive sleep apnea (adult) (pediatric) Status: Chronic Assessment and Plan: compliance with BiPAP/CPAP questionable continue while hospitalized (if agreeable) Will continue to follow. Subjective Date/time seen: 04/18/23 09:46 Interval history: Follow-up for end-stage renal disease on hemodialysis. Tolerating hemodialysis treatment at the time of my visit (seen on HD at 9:40AM); no apparent distress voiced currently; no issues/events overnight or earlier this morning. Exam Narrative: General: WD/WN male in NAD Heart: normal S1 and S2; no rub Lungs: clear to auscultation; decreased at the bases Abdomen: soft, nontender, nondistended, positive bowel sounds Extremities: no cyanosis or clubbing; no edema Skin: warm and dry Objective Data Vital Signs Vital Signs: Vital Signs Temp Pulse Resp BP Pulse Ox O2 Del Method 04/18/23 09:13 69 136/80 04/18/23 08:53 97.5 F L 71 16 142/80 H 04/18/23 08:00 74 04/18/23 08:00 Room Air 04/18/23 08:00 98.6 F 72 16 156/76 H 97 04/18/23 06:00 69 04/18/23 04:00 Room Air 04/18/23 04:00 98.4 F 74 18 178/98 H 98 04/18/23 04:00 71 04/18/23 02:00 73 04/18/23 00:00 69 04/17/23 22:00 77 04/17/23 20:00 71 04/18/23 00:00 Room Air 04/18/23 00:29 184/105 H 04/17/23 22:54 97.2 F L 75 18 176/103 H 98 04/17/23 22:19 Room Air 04/17/23 20:00 Room Air 04/17/23 21:01 72 04/17/23 19:54 97.7 F 71 18 154/88 H 97 04/17/23 18:00 71 04/17/23 16:00 68 04/17/23 16:00 97 Room Air 04/17/23 16:00 97.7 F 69 16 157/88 H 99 04/17/23 14:00 66 Intake/Output Intake/Output: Intake & Output 04/15/23 04/16/23 04/17/23 04/18/23 23:59 23:59 23:59 23:59 Intake Total 830 480 Balance 830 480 Meds/Results Medications: Active Medications Generic Name Dose Route Start Last Admin Trade Name Freq PRN Reason Stop Dose Admin Hydrocodone Bitart/Acetaminophen 1 tab 04/17/23 09:30 Hydrocodone/Acetaminophen (*Crx) 5-325 Mg Tablet PO Q4H PRN Pain Rated 4-6 Albuterol 2 puff 04/17/23 14:03 Albuterol Sulfate (*Sp) Aerosol 1 Puff INHALATION Q4H PRN Dyspnea Aspirin 81 mg 04/18/23 09:00 Aspirin 81 Mg Enteric Tablet PO DAILY TOM Epoetin Elieser-epbx 10,000 units 04/18/23 20:00 04/18/23 11:15 Epoetin Elieser
[2023-04-18] MEDS: EPOETIN ALFA-EPBX 10,000 UNITS/ML VIAL 10000 UNITS IV PUSH (11:15)
[2023-04-18] MEDS: PANTOPRAZOLE 40 MG TABLET PO (13:49)
[2023-04-18] MEDS: lisinopriL 20 MG TABLET PO (13:49)
[2023-04-18] MEDS: ISOSORBIDE MONONITRATE 30 MG TAB.ER.24H PO (13:49)
[2023-04-18] MEDS: ASPIRIN 81 MG ENTERIC TABLET PO (13:49)
[2023-04-18] MEDS: LORATADINE 10 MG TABLET PO (13:49)
[2023-04-18] MEDS: hydrALAZINE HCL 50 MG TABLET 100 MG PO ×2 (13:49→17:59)
[2023-04-18] MEDS: METOPROLOL SUCCINATE EXT REL 100 MG TABCR PO (13:49)
[2023-04-18] MEDS: FUROSEMIDE 80 MG TABLET PO (13:49)
[2023-04-18] MEDS: SODIUM ZIRCONIUM CYCLOSILICATE 10 GM POWD.PACK PO ×2 (15:02→17:59)
--- NOTE | 2023-04-18 17:17 | PM.DS ---
DS: Admitting Diagnosis Discharge Date 04/18/23 Admitting Diagnosis Chest pain DS: Discharge Diagnosis Discharge Diagnosis (1) Acute systolic CHF (congestive heart failure): Code(s): I50.21 - Acute systolic (congestive) heart failure Status: Acute (2) Chest pain: Qualifiers: Chest pain type: unspecified Qualified Code(s): R07.9 - Chest pain, unspecified Code(s): R07.9 - Chest pain, unspecified Status: Acute (3) Acute hyperkalemia: Code(s): E87.5 - Hyperkalemia Status: Acute (4) End stage renal disease: Code(s): N18.6 - End stage renal disease Status: Chronic (5) Coronary artery disease: Code(s): I25.10 - Atherosclerotic heart disease of [place] coronary artery without angina pectoris Status: Acute (6) Hypertension, uncontrolled: Code(s): I10 - Essential (primary) hypertension Status: Acute (7) MICHELLE (obstructive sleep apnea): Code(s): G47.33 - Obstructive sleep apnea (adult) (pediatric) Status: Chronic DS: Summary Hospital Course Reason for hospitalization: 58yo male with ESRD, HTN, CAD, MICHELLE and CHF here for shortness of breath and chest pain.??Please see H&P for details. Hospital Course: In the ED, his BP was 179/108. He was not tachycardic or hypoxic. EKG reviewed showing normal sinus rhythm with IVCD , first degree AVB and borderline ST-T wave changes. No change from prior except first degree new. CXR showing stable findings with small (L>R) pleural effusions, airspace opacities in the left midlobe and bilateral lower lobes and CMG. Troponin negative x 3. Hgb 10.6 but has chronic anemia. Sodium 133, potassium 5.7 and bicarb 19 with anion gap of 19. BUN/Cr elevated not unexpectedly. BNP >30K. He was given ASA, NTP and Lasix IV. He was able to void a good volume. He is due for parathyroid surgery next month. He was admitted to the IMU on telemetry. Suspect patient is not compliant with fluid restriction and that his symptoms are related to fluid overload. Patient is not wearing his CPAP which also could be contributing to his symptoms. Nephrology was consulted. He underwent dialysis and 3L removed. he had clinical improvement. He overall did well and was able to be discharged home on 04/18/23. He will follow up with his public relations analyst from [facility]. Status at Discharge Cognitive/behavioral status at discharge: stable Time Spent with Patient Time attestation: Total time spent providing and/or coordinating discharge services: 35 minutes Time spent: Greater than 30 minutes Exam Narrative: AF 97.6 153/77 79 16 96% ra Gen - NARD Chest - bibasilar crackles that improved with deep breath/cough CV - RRR. S1-S2. Tele showing no significant dysrhythmias Abd - soft, NT/ND, +BS Ext - no pedl edema. thrill and bruit to the left upper arm fistula Psych - normal mood and affect. Patient is pleasant and cooperative. Skin - warm and dry. DS: Data Data Completed and Pending Labs on day of discharge: Labs from last 24 hours 04/18/23 03:57 WBC 5.4 RBC 3.74 L Hgb 9.9 L Hct 32.2 L MCV 86.1 MCH 26.5 MCHC 30.7 L RDW 18.8 H Plt Count 199 MPV 9.9 Immature Gran % (Auto) 0.2 Neut % (Auto) 69.4 Lymph % (Auto) 14.1 L [place] % (Auto) 11.5 H Eos % (Auto) 3.5 Baso % (Auto) 1.3 H Lymph # (Auto) 0.76 L [place] # (Auto) 0.6 Eos # (Auto) 0.2 Baso # (Auto) 0.1 Abs Immat Gran (auto) 0.01 Absolute Neuts (auto) 3.7 Absolute Nucleated RBC 0.0 Nucleated RBC % 0.0 Sodium 130 L Potassium 5.5 H Chloride 95 L Carbon Dioxide 19 L Anion Gap 16 BUN 83 H Creatinine 9.40 H Estim Creat Clear Calc 8 Estimated GFR 6 L Glucose 88 Calcium 8.9 Phosphorus 9.5 H Albumin 4.0 Hep Bs Antigen Negative Hep Bs Antibody Indeterminate Discharge Plan Discharge Attending physician on discharge: Garry Simon Consulting providers: Destiney Moses Discharging Clinician: Esther
== END 2023-04-18 18:06 | disposition home or self-care (01) ==
LOC: ANHED 07:25 → ANHIMU 10:10
PROVIDERS: Emergency Medicine; Internal Medicine Nephrology; Admitting Provider Internal Medicine; Emergency Provider Emergency Medicine; PCP Family Medicine; Visit Provider Internal Medicine
DX: E87.70 Fluid overload, unspecified (principal); D63.1 Anemia in chronic kidney disease; I13.2 Hypertensive heart and chronic kidney disease with heart failure and with stage 5 chronic kidney disease, or end stage renal disease; N18.6 End stage renal disease; I50.20 Unspecified systolic (congestive) heart failure; I44.0 Atrioventricular block, first degree; Z99.2 Dependence on renal dialysis; R06.02 Shortness of breath; E21.3 Hyperparathyroidism, unspecified; E87.5 Hyperkalemia; R06.01 Orthopnea; I25.10 Atherosclerotic heart disease of native coronary artery without angina pectoris; Z95.1 Presence of aortocoronary bypass graft; G47.33 Obstructive sleep apnea (adult) (pediatric); R91.8 Other nonspecific abnormal finding of lung field; N40.0 Benign prostatic hyperplasia without lower urinary tract symptoms; K21.9 Gastro-esophageal reflux disease without esophagitis; E55.9 Vitamin D deficiency, unspecified; Z99.89 Dependence on other enabling machines and devices; F17.290 Nicotine dependence, other tobacco product, uncomplicated; Z79.82 Long term (current) use of aspirin; Z79.51 Long term (current) use of inhaled steroids; Z79.899 Other long term (current) drug therapy
CPT/HCPCS: 36415; 71046; 80048; 80053; 80069; 83690; 83880; 84484; 85025; 85610; 85730; 86706; 87340; 93005; 94640; 96374; 96375; 96376; 99285; A9270; G0257; G0378; J0360; J1644; J1940; J7030; Q5105